=== PATIENT | male | born 1980 ===

== ENCOUNTER 2017-04-23 15:58 | Inpatient (IN) | payer MEDICAID ==
[2017-04-23 17:45] VITALS: BP 242/136; PULSE 93; RESP 17; TEMP 98.5; O2SAT 100
[2017-04-23 18:00] VITALS: PULSE 92
--- NOTE | 2017-04-23 18:53 | HHI.HP ---
HPI Service Critical Care Medicine Primary Care Physician Unknown Admission Diagnosis Diagnosis: (1) Peritonitis Diagnosis: Principal (2) HTN (hypertension) Diagnosis: Secondary (3) HIV (human immunodeficiency virus infection) Diagnosis: Secondary (4) ESRD (end stage renal disease) on dialysis Diagnosis: Secondary (5) Peritonitis associated with peritoneal dialysis Diagnosis: Principal Travel History International Travel<30 Days: No Contact w/Intl Traveler <30 Da: No Traveled to Known Affected Are: No History of Present Illness 36 yo -[place] male with past medical history of ESRD on PD since 2009 ( under the care of Ajay Mckenzie in [place]), HIV diagnosed in 2009 on HAART with reportedly undetectable viral load 6 months ago, HTN, chronic constipation who presented to [facility] this morning with concerns for peritonitis. He states that on 04/21/17 he developed abdominal discomfort which he recognized as being similar to prior episodes of peritonitis. He had chills. He did not check his temperature. On 04/21 he noted that his peritoneal fluid appeared cloudy. He has had very little appetite and very little to eat since 04/20. He was nauseous and vomited once today, nonbloody nonbilious. Last bowel movement was 04/20. He has had 4 prior episodes of peritonitis, the most recent was 4 years ago. Catheter has been removed and replaced on one occasion in 2013. At the outside hospital he was afebrile with heart rate in the 80s and hypertensive with systolic in the 180s. Labs were drawn at 9:30 AM on 04/23 white blood cell count was 6.5, hemoglobin 11, platelets 209. Sodium was 138, potassium 6, chloride 94, bicarb 23, BUN 84 , creatinine 21, glucose 105, calcium 8.7, LFTs normal, albumin 3.9. Coags were all within normal limits. He received D50, insulin 5 units, Kayexalate 45 g p.o., sodium bicarb 150 mEq at outside hospital. Blood cultures and peritoneal cultures were sent. He received Zosyn 3.375 g IV and vancomycin 500 mg IV. He also received Zofran and a total of 2.5 mg of Dilaudid and 4 mg of morphine. Reportedly he had a repeat potassium that was 5.0. CT abdomen and pelvis at outside hospital with ports focally dilated air loops of small bowel which may represent ileus. SBO cannot be excluded. Thickening of the colonic wall through the majority of its course which may be reactive versus infectious/ inflammatory. Bilateral pleural effusions. 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 Review of Systems ROS Limitations: Clinical Condition Constitutional: COMPLAINS OF: Chills, DENIES: Fever Eyes: DENIES: Eye pain Ears, nose, mouth, throat: DENIES: Throat pain, Odynophagia Respiratory: DENIES: Cough Cardiovascular: DENIES: Chest pain, Syncope, Dyspnea on Exertion Gastrointestinal: COMPLAINS OF: Abdominal pain, Bloody stools (last was 2 weeks ago ), Nausea, Vomiting, Anorexia Musculoskeletal: DENIES: Muscle aches Integumentary: DENIES: Rash Hematologic/lymphatic: DENIES: Bruising Neurologic: DENIES: Headache Psychiatric: COMPLAINS OF: Anxiety, DENIES: Confusion Past Family Social History Allergies: Coded Allergies: No Known Allergies (Unverified , 04/23/17) Past Medical History 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 He states he is anuric. Has had prior renal biopsy. He states he is unclear etiology of renal failure. HIV diagnosed in 2009 he has been under the care of Jose Armando Daly in [place]. He last saw him 6 months ago and reportedly had an undetectable viral load. He recently relocated to [place] and is looking for another ID physician HTN Anxiety He has had 4 prior episodes of peritonitis. Peritoneal catheter was removed and then replaced a month later in 2013. Gastritis per prior EGD 1 year ago Chronic constipation Past Surgical History Renal biopsy in 2009 Tenckhoff catheter placement 2009 PD catheter removal PD catheter replacement in 2013 Inguinal hernia repair EGD and colonoscopy in early 2016 Reported Medications Triumeq tablet 1 tab po daily Xanax 2.5 mg p.o. 3 times daily Calcitriol 0.5 mcg p.o. 3 times daily Carvedilol 25 mg p.o. twice daily Sensipar 60 mg p.o. daily Clonidine 0.2 mg p.o. 3 times daily Lisinopril 20 g p.o. twice daily Nifedipine ER 60 mg p.o. twice daily Hydralazine 50 mg p.o. 3 times daily Family History No family history of renal disease other than a cousin on his mother's side No family history of coronary artery disease Father's medical history is unknown His mother is healthy with no medical problems Social History Lifetime non-smoker Drinks alcohol very rarely on holidays He is smoked marijuana previously but none recently Denies IV drug use Previously lived in [place]. Just relocated to [place] a few months ago. His mother lives in [place]. Physical Exam Vital Signs Vital Signs Date Time Temp Pulse Resp B/P (MAP) Pulse Ox O2 Delivery O2 Flow Rate FiO2 04/23/17 18:00 92 04/23/17 17:45 98.5 93 17 242/136 (171) 100 Physical Exam GENERAL: Well-nourished, well-developed male patient who is sitting up in bed, alert and interactive, nontoxic-appearing SKIN: Warm and dry. No rash. Multiple tattoos on neck and chest HEAD: Atraumatic. Normocephalic. EYES: Pupils equal and round, 2 mm and reactive.. No scleral icterus. No injection or drainage. ENT: No nasal bleeding or discharge. Mucous membranes pink and moist. No pharyngeal erythema. NECK: Trachea midline. No JVD. CARDIOVASCULAR: Regular rate and rhythm, sinus rhythm on monitor with rate in the 80s. No murmurs rubs or gallops appreciated. RESPIRATORY: Breathing comfortably on room air with no accessory muscle use. Clear to auscultation. Breath sounds equal bilaterally. GASTROINTESTINAL: Abdomen soft, peritoneal fluid wave present, tender to palpation with voluntary guarding, no rebound. Bowel sounds hypoactive. Dialysis catheter in place with serous crusting around catheter, no purulent drainage. MUSCULOSKELETAL: Extremities without clubbing, cyanosis, or edema. No obvious deformities. NEUROLOGICAL: Awake and alert. No obvious cranial nerve deficits. Motor grossly within normal limits. Normal speech. Oriented x4. Caprini VTE Risk Assessment Caprini VTE Risk Assessment: Mod/High Risk (score >= 2) Caprini Risk Assessment Model Point Value = 1 Point Value = 2 Point Value = 3 Point Value = 5 Age 41-60 Minor surgery BMI > 25 kg/m2 Swollen legs Varicose veins or History of unexplained or recurrent spontaneous Oral contraceptives or hormone replacement Sepsis (< 1 month) Serious lung disease, including pneumonia (< 1 month) Abnormal pulmonary function Acute myocardial infarction Congestive heart failure (< 1 month) History of inflammatory bowel disease Medical patient at bed rest Age 61-74 Arthroscopic surgery Major open surgery (> 45 min) Laparoscopic surgery (> 45 min) Malignancy Confined to bed (> 72 hours) Immobilizing plaster cast Central venous access Age >= 75 History of VTE Family history of VTE Factor V Leiden Prothrombin [id number] Lupus anticoagulant Anticardiolipin antibodies Elevated serum homocysteine Heparin-induced thrombocytopenia Other congenital or acquired thrombophilia Stroke (< 1 month) Elective arthroplasty Hip, pelvis, or leg fracture Acute spinal cord injury (< 1 month) Prophylaxis Regimen Total Risk Factor Score Risk Level Prophylaxis Regimen 0-1 Low Early ambulation 2 Moderate Order ONE of the following: *Sequential Compression Device (SCD) *Heparin 5000 units SQ BID 3-4 Higher Order ONE of the following medications: *Heparin 5000 units SQ TID *Enoxaparin/Lovenox 40 mg SQ daily (WT < 150 kg, CrCl > 30 mL/min) *Enoxaparin/Lovenox 30 mg SQ daily (WT < 150 kg, CrCl > 10-29 mL/min) *Enoxaparin/Lovenox 30 mg SQ BID (WT < 150 kg, CrCl > 30 mL/min) AND/OR *Sequential Compression Device (SCD) 5 or more Highest Order ONE of the following medications: *Heparin 5000 units SQ TID (Preferred with Epidurals) *Enoxaparin/Lovenox 40 mg SQ daily (WT < 150 kg, CrCl > 30 mL/min) *Enoxaparin/Lovenox 30 mg SQ daily (WT < 150 kg, CrCl > 10-29 mL/min) *Enoxaparin/Lovenox 30 mg SQ BID (WT < 150 kg, CrCl > 30 mL/min) AND *Sequential Compression Device (SCD) Assessment and Plan Problem List: (1) HTN (hypertension) ICD Code: I10 - Essential (primary) hypertension Status: Chronic (2) Peritonitis associated with peritoneal dialysis ICD Code: T85.71XA - Infection and inflammatory reaction due to peritoneal dialysis catheter, initial encounter Status: Acute (3) HIV (human immunodeficiency virus infection) ICD Code: B20 - Human immunodeficiency virus [HIV] disease Status: Chronic (4) ESRD (end stage renal disease) on dialysis ICD Code: N18.6 - End stage renal disease; Z99.2 - Dependence on renal dialysis Status: Chronic (5) Peritonitis ICD Code: K65.9 - Peritonitis, unspecified Status: Acute Assessment and Plan NEURO: Anxiety Continue home Xanax RESP: On RA. CV: Hypertension EKG 04/1310: 14 normal sinus rhythm at a rate of 89 there were peak T waves. QRS is normal. Continue home medicines: Coreg 25 mg p.o. twice daily, clonidine 0.2 mg p.o. 3 times daily, lisinopril 20 g p.o. twice daily, nifedipine ER 60 mg p.o. twice daily, hydralazine 50 mg p.o. 3 times daily GI: Peritonitis Ileus History of gastritis Intraperitoneal abx, discussed with Dr. Cuba, he will order. CT abdomen and pelvis at outside hospital with ports focally dilated air loops of small bowel which may represent ileus. SBO cannot be excluded. Thickening of the colonic wall through the majority of its course which may be reactive versus infectious/inflammatory. F/u KUB FEN/RENAL: ESRD On peritoneal dialysis Acute Hyperkalemia He received D50, insulin 5 units, Kayexalate 45 g p.o., sodium bicarb 150 mEq at outside hospital. Nephrology consult with PD per nephrology. ID: HIV Peritonitis with indwelling peritoneal dialysis catheter Reportedly undetectable viral load approximately 6 months ago. Blood and peritoneal fluid cultures sent at [place], will need to call tomorrow to followup. Will send repeat blood cx, peritoneal cell count/gram stain and culture. Intraperitoneal Abx being ordered per Dr. Cuba. Continued home regimen of Triumeq tablet 1 tab po daily; though uptodate recommends dose adjustment of individual drugs for ESRD. Will defer to ID. HEME: Monitor CBC. PT/PTT at outside hospital were within normal limits 04/23 ENDO: He was seen at outside hospital. Will follow up glucose. PROPH: SCDs for DVT prophylaxis. Heparin 5000 units subcu every 12 hours for DVT prophylaxis. Famotidine 20 mg p.o. twice daily for stress ulcer prophylaxis ACCESS: Peripheral IV providing adequate access at this time. Discussed with Dr. Kathy Cuba Level 3 H and Diane Arriaza MD Apr 23, 2017 18:53
[2017-04-23] MEDS ORDERED: MAGNESIUM HYDROXIDE SUSP 30 ML CUP PO PRN (19:15)
[2017-04-23] MEDS ORDERED: CHLORHEXIDINE GLUCONATE 2 % 1 PACK (2 CLOTHS) TOP PRN (19:15)
[2017-04-23] MEDS ORDERED: MISCELLANEOUS NURSING INFORMATION XX SCH (19:15)
[2017-04-23] MEDS ORDERED: RESP: ALBUTEROL 2.5 MG/3 ML NEB (PRN) INH (19:15)
[2017-04-23] MEDS ORDERED: SODIUM CHLORIDE 0.9% FLUSH 10 ML FLUSH IV FLUSH PRN ×2 (19:15→19:30)
[2017-04-23] MEDS ORDERED: BISACODYL 10 MG SUPP RECTAL PRN (19:15)
[2017-04-23] MEDS ORDERED: hydrALAZINE HCL 20 MG/ML VIAL IV PUSH PRN (19:15)
[2017-04-23] MEDS ORDERED: SENNOSIDES 8.6 MG TAB PO PRN (19:15)
[2017-04-23] MEDS ORDERED: HEPARIN SODIUM - IV 10,000 UNITS/10 ML VIAL XX PRN (19:30)
[2017-04-23] MEDS: VANCOMYCIN HCL 1000 MG VIAL IP SCH (19:30)
[2017-04-23] MEDS: FAMOTIDINE 20 MG TAB PO SCH (19:56)
[2017-04-23] MEDS: CARVEDILOL 12.5 MG TAB PO SCH (19:56)
[2017-04-23] MEDS: HEPARIN SODIUM - SQ 10,000 UNITS/ML VIAL SQ SCH (19:56)
[2017-04-23] MEDS: SODIUM CHLORIDE 0.9% FLUSH 10 ML FLUSH IV FLUSH SCH (19:56)
[2017-04-23] MEDS: DOCUSATE SODIUM 50 MG/SENNA 8.6 MG TAB PO SCH (19:56)
[2017-04-23] MEDS: LISINOPRIL 20 MG TAB PO SCH (19:57)
[2017-04-23 20:00] VITALS: BP_SYST 231; BP_DIAS 136; BP_DIAS 196; PULSE 92; RESP 15; TEMP 98.4; TEMP 98.7; O2SAT 100
[2017-04-23 20:01] LABS: BICARBONATE 25.5 MEQ/L (21.0-32.0); CALCIUM 8.4 MG/DL (8.5-10.1); MAGNESIUM 2.1 MG/DL (1.5-2.5)
--- NOTE | 2017-04-23 20:03 | PD.CONS ---
HPI Service Nephrology Consult Requested By Dr. Dyson Reason for Consult ESRD on peritoneal dialysis Primary Care Physician Unknown History of Present Illness Patient is a 36-year-old male with history of end-stage renal disease, hypertension, HIV disease who had been on peritoneal dialysis since 2009, he states that he had the peritonitis before, his last infection was 4 years ago, he was careful with this technique however due to low volume he was trying to manipulate the tubings and the bag end got exposed, he developed abdominal pain on Saturday and it was unbearable and he came to the local emergency center in [place] but there was no bed available at [facility], he got transferred the care at [place], he said that he had the last well with antibiotics and is abdominal pain he would like it to be draining. Review of Systems Constitutional: COMPLAINS OF: Fatigue Gastrointestinal: COMPLAINS OF: Abdominal pain, Nausea Neurologic: COMPLAINS OF: Abnormal gait Psychiatric: COMPLAINS OF: Anxiety Past Family Social History Allergies: Coded Allergies: No Known Allergies (Unverified , 04/23/17) Past Medical History End-stage renal disease, hypertension, HIV disease, anemia, secondary hyperparathyroidism, peritonitis Past Surgical History Peritoneal dialysis catheter inserted Hernia repair Active Ordered Medications Current Medications Medications (Trade) Dose Ordered Sig/Neftaly Route Start Time Stop Time Status Last Admin (NS Flush) 2 ml UNSCH PRN IV FLUSH 04/23/17 19:15 (NS Flush) 2 ml BID IV FLUSH 04/23/17 21:00 (Percocet 5-325 Mg) 1 tab Q4H PRN PO 04/23/17 19:15 (Pepcid) 20 mg Q12HR PO 04/23/17 21:00 (Zofran Inj) 4 mg Q6H PRN IV PUSH 04/23/17 19:15 (Albuterol Neb) 2.5 mg Q2HR NEB PRN INH 04/23/17 19:15 (Heparin Inj) 5,000 units Q12H SQ 04/23/17 19:30 Miscellaneous Information 1 Q361D XX 04/23/17 19:15 (Chlorhexidine 2% Cloth) 3 pack Taper DAILY@04 TOP 04/24/17 04:00 04/20/18 03:59 (Chlorhexidine 2% Cloth) 3 pack UNSCH PRN TOP 04/23/17 19:15 (Shaneka-Colace) 1 tab BID PO 04/23/17 21:00 (Milk Of Magnesia Liq) 30 ml Q12H PRN PO 04/23/17 19:15 (Senokot) 17.2 mg Q12H PRN PO 04/23/17 19:15 (Dulcolax Supp) 10 mg DAILY PRN RECTAL 04/23/17 19:15 (Lactulose Liq) 30 ml DAILY PRN PO 04/23/17 19:15 (Percocet 5-325 Mg) 2 tab Q4H PRN PO 04/23/17 19:15 (Xanax) 0.5 mg Q8H PRN PO 04/23/17 19:15 (Rocaltrol) 0.5 mcg TID PO 04/24/17 09:00 (Coreg) 25 mg Q12HR PO 04/23/17 21:00 (Sensipar) 60 mg DAILY PO 04/24/17 09:00 (Catapres) 0.2 mg Q8HR PO 04/23/17 22:00 (Prinivil) 20 mg Q12HR PO 04/23/17 21:00 (Apresoline) 50 mg Q8HR PO 04/23/17 22:00 (Trandate Inj) 10 mg Q4H PRN IV PUSH 04/23/17 19:30 (Apresoline Inj) 10 mg Q4H PRN IV PUSH 04/23/17 19:15 (Heparin Inj) 1,000 units WITH DIALYSIS PRN XX 04/23/17 19:30 (NS Flush) 10 ml UNSCH PRN IV FLUSH 04/23/17 19:30 (Vancomycin Inj) 1,000 mg Q7D IP 04/23/17 19:30 (Fortaz Inj) 1,000 mg DAILY IP 04/23/17 19:30 Family History Noncontributory Social History Denies smoking, uses alcohol rarely Physical Exam Vital Signs Vital Signs Date Time Temp Pulse Resp B/P (MAP) Pulse Ox O2 Delivery O2 Flow Rate FiO2 04/23/17 18:00 92 04/23/17 17:45 98.5 93 17 242/136 (171) 100 Physical Exam GENERAL: Well-nourished, well-developed patient. SKIN: Warm and dry. HEAD: Normocephalic. EYES: No scleral icterus. No injection or drainage. NECK: Supple, trachea midline. No JVD or lymphadenopathy. CARDIOVASCULAR: Regular rate and rhythm without murmurs, gallops, or rubs. RESPIRATORY: Breath sounds equal bilaterally. No accessory muscle use. GASTROINTESTINAL: Abdomen soft, tenderness present diffusely, peritoneal dialysis catheter in place EXTREMITIES: No cyanosis, or edema. NEUROLOGICAL: Awake, alert, and oriented x 3. Non-focal. Laboratory Laboratory Tests Test 04/23/17 19:13 Date/Time Source Procedure Growth Status 04/23/17 19:19 Blood Peripheral Aerobic Blood Culture Pending Received 04/23/17 19:19 Blood Peripheral Anaerobic Blood Culture Pending Received Imaging Laboratory Tests Test 04/23/17 19:13 Assessment and Plan Problem List: (1) ESRD (end stage renal disease) on dialysis ICD Codes: N18.6 - End stage renal disease; Z99.2 - Dependence on renal dialysis Plan: Peritoneal dialysis ordered and this will be carried out with antibiotics coverage in the last several vancomycin 1 g and ceftazidime 1 g Reculture Gram stain and culture and sensitivity (2) Hypertensive crisis ICD Codes: I16.9 - Hypertensive crisis, unspecified Plan: Hypertension and resume his outpatient medications in the ICU he may need IV coverage for when necessary (3) Peritonitis ICD Codes: K65.9 - Peritonitis, unspecified Plan: check c/s IP antibiotics Assessment and Plan ESRD: Discussed Condition With ESRD, peritonitis patient will be started on peritoneal dialysis and always has been given Discussed with Mario Boogie MD Apr 23, 2017 20:03
[2017-04-23] MEDS: oxyCODONE/ACETAMINOPHEN 5 MG/325 MG TAB PO PRN (20:05)
[2017-04-23 20:11] LABS: CREATININE 23.07 MG/DL (0.60-1.30)
[2017-04-23 20:30] LABS: AUTOMATED NEUTROPHIL # 4.6 TH/MM3 (1.8-7.7); BASOPHIL # 0.1 TH/MM3 (0-0.2); BASOPHIL % 0.9 % (0.0-2.0); EOSINOPHIL # 0.1 TH/MM3 (0-0.4); EOSINOPHIL % 1.7 % (0.0-4.0); HEMATOCRIT 33.9 % (39.0-51.0); HEMOGLOBIN 11.1 GM/DL (13.0-17.0); LYMPH % 12.5 % (9.0-44.0); LYMPHOCYTE # 0.8 TH/MM3 (1.0-4.8); MEAN CELL VOLUME 95.5 FL (80.0-100.0); MEAN CORPUSCULAR HEMOGLOBIN 31.2 PG (27.0-34.0); MEAN CORPUSCULAR HGB CONC 32.7 % (32.0-36.0); MEAN PLATELET VOLUME 10.8 FL (7.0-11.0); MONO % 12.8 % (0.0-8.0); MONOCYTE # 0.8 TH/MM3 (0-0.9); NEUT % 72.1 % (16.0-70.0); PLATELET COUNT 205 TH/MM3 (150-450); RED BLOOD COUNT 3.55 MIL/MM3 (4.50-5.90); RED CELL DISTRIBUTION WIDTH 16.1 % (11.6-17.2); WHITE BLOOD COUNT 6.4 TH/MM3 (4.0-11.0)
--- NOTE | 2017-04-23 20:45 | RADRPT ---
EXAM DATE/TIME: 04/23/2017 20:13 [facility] COMPARISON: No previous studies available for comparison. INDICATIONS : Ileus. MEDICAL HISTORY : None. SURGICAL HISTORY : None. ENCOUNTER: Initial ACUITY: 1 day PAIN SCORE: 8/10 LOCATION: Bilateral abdomen. FINDINGS: There is distended small bowel and decompressed colon compatible small bowel obstruction. No free air seen. CONCLUSION: Small bowel obstruction. Anup Mcnamara MD on April 23, 2017 at 20:42 Board Certified Radiologist. This report was verified electronically.
[2017-04-23 21:00] VITALS: BP 220/128; PULSE 95; RESP 18; TEMP 98.6; O2SAT 100
[2017-04-23] MEDS: cloNIDine HCL 0.2 MG TAB PO SCH (21:31)
[2017-04-23 22:00] VITALS: PULSE 93
[2017-04-23] MEDS: hydrALAZINE HCL 50 MG TAB PO SCH (22:00)
[2017-04-23] MEDS: NIFEdipine 60 MG SUSTAINED RELEASE TAB PO SCH (22:04)
[2017-04-23 22:22] LABS: PERITONEAL EOS 3 %; PERITONEAL HISTIOCYTES 2 %; PERITONEAL LYMPHS 71 %; PERITONEAL MESOTHELIAL 1 %; PERITONEAL MONOS 3 %; PERITONEAL POLYS(SEGS) 20 %; PERITONEAL RBC 20 /MM3 (0-0)
[2017-04-23] MEDS: ALPRAZolam 0.5 MG TAB PO PRN (22:51)
[2017-04-23] MEDS: ONDANSETRON HCL 4 MG/2 ML VIAL IV PUSH PRN (22:51)
[2017-04-24] VITALS (12 sets, daily range): BP systolic 141–222; BP diastolic 85–127; PULSE 85–105; RESP 13–27; TEMP 98–98.7; O2SAT 97–100
[2017-04-24] MEDS: CHLORHEXIDINE GLUCONATE 2 % 1 PACK (2 CLOTHS) TOP SCH (04:00)
[2017-04-24] MEDS: hydrALAZINE HCL 50 MG TAB PO SCH ×3 (05:08→21:50)
[2017-04-24] MEDS: cloNIDine HCL 0.2 MG TAB PO SCH ×3 (05:09→21:50)
[2017-04-24] MEDS: oxyCODONE/ACETAMINOPHEN 5 MG/325 MG TAB PO PRN ×5 (05:09→23:47)
[2017-04-24 06:05] LABS: AUTOMATED NEUTROPHIL # 3.5 TH/MM3 (1.8-7.7); BASOPHIL # 0.1 TH/MM3 (0-0.2); BASOPHIL % 1.5 % (0.0-2.0); EOSINOPHIL # 0.1 TH/MM3 (0-0.4); EOSINOPHIL % 2.4 % (0.0-4.0); HEMATOCRIT 32.6 % (39.0-51.0); HEMOGLOBIN 10.8 GM/DL (13.0-17.0); LYMPH % 16.3 % (9.0-44.0); LYMPHOCYTE # 0.9 TH/MM3 (1.0-4.8); MEAN CELL VOLUME 95.2 FL (80.0-100.0); MEAN CORPUSCULAR HEMOGLOBIN 31.5 PG (27.0-34.0); MEAN CORPUSCULAR HGB CONC 33.1 % (32.0-36.0); MEAN PLATELET VOLUME 10.3 FL (7.0-11.0); MONO % 17.4 % (0.0-8.0); NEUT % 62.4 % (16.0-70.0); PLATELET COUNT 215 TH/MM3 (150-450); RED BLOOD COUNT 3.42 MIL/MM3 (4.50-5.90); RED CELL DISTRIBUTION WIDTH 15.5 % (11.6-17.2); WHITE BLOOD COUNT 5.7 TH/MM3 (4.0-11.0)
[2017-04-24] MEDS: ALPRAZolam 0.5 MG TAB PO PRN ×3 (06:35→21:50)
[2017-04-24 07:04] LABS: BICARBONATE 24.6 MEQ/L (21.0-32.0); CALCIUM 8.8 MG/DL (8.5-10.1)
[2017-04-24 07:10] LABS: CREATININE 20.72 MG/DL (0.60-1.30)
[2017-04-24] MEDS: HEPARIN SODIUM - SQ 10,000 UNITS/ML VIAL SQ SCH ×2 (07:30→17:59)
[2017-04-24] MEDS: ABACAVIR SULFATE 300 MG TAB PO SCH (08:53)
[2017-04-24] MEDS: CARVEDILOL 12.5 MG TAB PO SCH ×2 (08:55→20:49)
[2017-04-24] MEDS: LISINOPRIL 20 MG TAB PO SCH ×2 (08:55→20:49)
[2017-04-24] MEDS: FAMOTIDINE 20 MG TAB PO SCH ×2 (08:55→20:49)
[2017-04-24] MEDS: DOLUTEGRAVIR SODIUM 50 MG TAB PO SCH (08:55)
[2017-04-24] MEDS: CALCITRIOL 0.25 MCG CAP PO SCH ×3 (08:56→17:59)
[2017-04-24] MEDS: DOCUSATE SODIUM 50 MG/SENNA 8.6 MG TAB PO SCH ×2 (08:56→20:49)
[2017-04-24] MEDS: CINACALCET HYDROCHLORIDE 30 MG TAB PO SCH (08:56)
[2017-04-24] MEDS: NIFEdipine 60 MG SUSTAINED RELEASE TAB PO SCH ×2 (08:57→20:49)
[2017-04-24] MEDS: SODIUM CHLORIDE 0.9% FLUSH 10 ML FLUSH IV FLUSH SCH ×2 (08:58→20:49)
--- NOTE | 2017-04-24 09:39 | PD.ID.CON ---
History of Present Illness Service ID Consult Requested By Reason for Consult Evaluation and management of peritoneal dialysis catheter related peritonitis. Primary Care Physician Unknown Diagnoses: History of Present Illness Mr. Christian is a 36-year-old male with past medical history significant for end-stage renal disease on peritoneal dialysis since 2009. 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 Ajay Mckenzie in [place]. Patient reports having a renal biopsy and sure if this is HIV related end-stage renal disease or not. Patient reports that he has had at least one prior peritoneal dialysis catheter related peritonitis episode in the past needing removal of the PD catheter. Patient's past medical history is also significant for HIV diagnosed in 2009. Patient is not aware of his CD4 count but reports an undetectable viral load 6 months ago. In addition to this he also reports chronic constipation. Patient follows with an infectious disease doctor in [place] but has recently moved to [place] and is in need of a infectious disease doctor in that area. Patient denies any prior opportunistic infections such as PCP, fungal etc. With this background patient presented to the hospital in [facility] with complaints of abdominal discomfort which she reported appeared to be similar to prior episodes of peritonitis. He also reported chills but denied any fevers. He reports subjective fevers. On April 21 he reports that her paternal dialysis session he noted the fluid was cloudy. He reports decreased appetite since April 20. Reports nausea and vomiting at least once a day itches nonbloody and nonbilious. His last bowel movement was April 20. Review of Dr. Dyson notes reveals patient has had at least 4 prior episodes of peritonitis the most recent one was 4 years prior to this admission. While at [facility] patient was found to be afebrile with heart rate in the 80s and hypertensive with systolic blood pressure in the 180s. Labs drawn at that hospital indicated WBC of 6.5, platelets 205, creatinine 21. Patient was noted to have hyperkalemia with a potassium of 6. He received D50 , insulin 5 units in [place]ex[place]ate at the outside hospital. Blood cultures and peritoneal fluid cultures were collected on April 23, 2017 and when I called microbiology the reported that these cultures were no growth to date. His CT abdomen pelvis done at [facility] reportedly showed thickening of the colonic wall associated with dilated air loops of small bowel. Bilateral pleural effusions as well as fluid in the abdomen. Again the disc that arrived to the patient was difficult to open and side haven't been able to review these images personally. I did review medical records from [facility] and called microbiology department and blood cultures as well as pericardial fluid cultures are no growth today. Infectious disease is consulted for evaluation and management of peritoneal dialysis catheter related peritonitis. Review of Systems Constitutional: DENIES: Diaphoretic episodes, Fatigue, Fever, Weight gain, Weight loss, Chills, Dizziness, Change in appetite, Night Sweats Endocrine: DENIES: Heat/cold intolerance, Polydipsia, Polyuria, Polyphagia Eyes: DENIES: Blurred vision, Diplopia, Eye inflammation, Eye pain, Vision loss , Photosensitivity, Double Vision Ears, nose, mouth, throat: DENIES: Tinnitus, Hearing loss, Vertigo, Nasal discharge, Oral lesions, Throat pain, Hoarseness, Ear Pain, Running Nose, Epistaxis, Sinus Pain, Toothache, Odynophagia Respiratory: DENIES: Apneas, Cough, Snoring, Wheezing, Hemoptysis, Sputum production, Shortness of breath Cardiovascular: DENIES: Chest pain, Palpitations, Syncope, Dyspnea on Exertion , PND, Lower Extremity Edema, Orthopnea, Claudication Gastrointestinal: COMPLAINS OF: Abdominal pain, DENIES: Black stools, Bloody stools, Constipation, Diarrhea, Nausea, Vomiting, Difficulty Swallowing, Anorexia Genitourinary: DENIES: Sexual dysfunction, Urinary frequency, Urinary incontinence, Urgency, Hematuria, Dysuria, Nocturia, Penile Discharge, Testicular Pain, Testicular Swelling Musculoskeletal: DENIES: Joint pain, Muscle aches, Stiffness, Joint Swelling, Back pain, Neck pain Integumentary: DENIES: Abnormal pigmentation, Nail changes, Pruritus, Rash Hematologic/lymphatic: DENIES: Bruising, Lymphadenopathy Immunologic/allergic: DENIES: Eczema, Urticaria Neurologic: DENIES: Abnormal gait, Headache, Localized weakness, Paresthesias, Seizures, Speech Problems, Tremor, Poor Balance Psychiatric: DENIES: Anxiety, Confusion, Mood changes, Depression, Hallucinations, Agitation, Suicidal Ideation, Homicidal Ideation, Delusions Past Family Social History Allergies: Coded Allergies: No Known Allergies (Unverified , 04/23/17) Past Medical History 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 He states he is anuric. Has had prior renal biopsy. He states he is unclear etiology of renal failure. HIV diagnosed in 2009 he has been under the care of Jose Armando Daly in [place]. He last saw him 6 months ago and reportedly had an undetectable viral load. He recently relocated to [place] and is looking for another ID physician HTN Anxiety He has had 4 prior episodes of peritonitis. Peritoneal catheter was removed and then replaced a month later in 2013. Gastritis per prior EGD 1 year ago Chronic constipation Past Surgical History Renal biopsy in 2009 Tenckhoff catheter placement 2009 PD catheter removal PD catheter replacement in 2013 Inguinal hernia repair EGD and colonoscopy in early 2016 Reported Medications Triumeq tablet 1 tab po daily Xanax 2.5 mg p.o. 3 times daily Calcitriol 0.5 mcg p.o. 3 times daily Carvedilol 25 mg p.o. twice daily Sensipar 60 mg p.o. daily Clonidine 0.2 mg p.o. 3 times daily Lisinopril 20 g p.o. twice daily Nifedipine ER 60 mg p.o. twice daily Hydralazine 50 mg p.o. 3 times daily Active Ordered Medications Current Medications Medications (Trade) Dose Ordered Sig/Neftaly Route Start Time Stop Time Status Last Admin (NS Flush) 2 ml UNSCH PRN IV FLUSH 04/23/17 19:15 (NS Flush) 2 ml BID IV FLUSH 04/23/17 21:00 04/24/17 08:58 (Percocet 5-325 Mg) 1 tab Q4H PRN PO 04/23/17 19:15 04/24/17 10:07 (Pepcid) 20 mg Q12HR PO 04/23/17 21:00 04/24/17 08:55 (Zofran Inj) 4 mg Q6H PRN IV PUSH 04/23/17 19:15 04/23/17 22:51 (Albuterol Neb) 2.5 mg Q2HR NEB PRN INH 04/23/17 19:15 (Heparin Inj) 5,000 units Q12H SQ 04/23/17 19:30 04/23/17 19:56 Miscellaneous Information 1 Q361D XX 04/23/17 19:15 (Chlorhexidine 2% Cloth) 3 pack Taper DAILY@04 TOP 04/24/17 04:00 04/20/18 03:59 04/24/17 04:00 (Chlorhexidine 2% Cloth) 3 pack UNSCH PRN TOP 04/23/17 19:15 (Shaneka-Colace) 1 tab BID PO 04/23/17 21:00 04/24/17 08:56 (Milk Of Magnesia Liq) 30 ml Q12H PRN PO 04/23/17 19:15 (Senokot) 17.2 mg Q12H PRN PO 04/23/17 19:15 (Dulcolax Supp) 10 mg DAILY PRN RECTAL 04/23/17 19:15 (Lactulose Liq) 30 ml DAILY PRN PO 04/23/17 19:15 (Percocet 5-325 Mg) 2 tab Q4H PRN PO 04/23/17 19:15 04/24/17 05:09 (Xanax) 0.5 mg Q8H PRN PO 04/23/17 19:15 04/24/17 06:35 (Rocaltrol) 0.5 mcg TID PO 04/24/17 09:00 04/24/17 08:56 (Coreg) 25 mg Q12HR PO 04/23/17 21:00 04/24/17 08:55 (Sensipar) 60 mg DAILY PO 04/24/17 09:00 04/24/17 08:56 (Catapres) 0.2 mg Q8HR PO 04/23/17 22:00 04/24/17 05:09 (Prinivil) 20 mg Q12HR PO 04/23/17 21:00 04/24/17 08:55 (Apresoline) 50 mg Q8HR PO 04/23/17 22:00 04/24/17 05:08 (Trandate Inj) 10 mg Q4H PRN IV PUSH 04/23/17 19:30 04/24/17 10:49 (Apresoline Inj) 10 mg Q4H PRN IV PUSH 04/23/17 19:15 04/23/17 20:06 (Heparin Inj) 1,000 units WITH DIALYSIS PRN XX 04/23/17 19:30 (NS Flush) 10 ml UNSCH PRN IV FLUSH 04/23/17 19:30 (Vancomycin Inj) 1,000 mg Q7D IP 04/23/17 19:30 04/23/17 19:30 (Fortaz Inj) 1,000 mg DAILY IP 04/23/17 19:30 04/24/17 08:57 (Ziagen) 600 mg DAILY PO 04/24/17 09:00 04/24/17 08:53 (Epivir) 300 mg DAILY PO 04/24/17 09:00 04/24/17 08:54 (Procardia Xl) 60 mg Q12HR PO 04/23/17 22:00 04/24/17 08:57 Family History No family history of renal disease other than a cousin on his mother's side No family history of coronary artery disease Father's medical history is unknown His mother is healthy with no medical problems Social History Lifetime non-smoker Drinks alcohol very rarely on holidays He is smoked marijuana previously but none recently Denies IV drug use Previously lived in [place]. Just relocated to [place] a few months ago. His mother lives in [place]. Physical Exam Vital Signs Vital Signs Date Time Temp Pulse Resp B/P (MAP) Pulse Ox O2 Delivery O2 Flow Rate FiO2 04/24/17 06:00 92 04/24/17 04:00 89 04/24/17 04:00 98.3 89 27 163/105 (124) 97 04/24/17 02:00 92 04/24/17 00:00 92 04/24/17 00:00 98.6 95 18 141/85 (103) 99 04/23/17 22:00 93 04/23/17 21:00 98.6 95 18 220/128 (158) 100 04/23/17 20:00 98.7 92 15 231/136 (167) 100 04/23/17 20:00 98.4 92 15 231/196 (208) 100 04/23/17 20:00 92 04/23/17 18:00 92 04/23/17 17:45 98.5 93 17 242/136 (171) 100 Physical Exam GENERAL: This is a well-nourished, well-developed patient, in no apparent distress. SKIN: No rashes, ecchymoses or lesions. Cool and dry. HEAD: Atraumatic. Normocephalic. No temporal or scalp tenderness. EYES: Pupils equal round and reactive. Extraocular motions intact. No scleral icterus. No injection or drainage. ENT: Nose without bleeding, purulent drainage or septal hematoma. Throat without erythema, tonsillar hypertrophy or exudate. Uvula midline. Airway patent. NECK: Trachea midline. Supple, nontender, no meningeal signs. CARDIOVASCULAR: Systolic murmur noted. RESPIRATORY: Clear to auscultation. Breath sounds equal bilaterally. No wheezes , rales, or rhonchi. GASTROINTESTINAL: Abdomen soft, non-tender, nondistended. PD catheter site with no evidence of infection. MUSCULOSKELETAL: Extremities without clubbing, cyanosis, or edema. No joint tenderness, effusion, or edema noted. No calf tenderness. Negative Homans sign bilaterally. NEUROLOGICAL: Awake and alert. Nonfocal exam Psych cooperative IV line sites with no evidence of infection. Laboratory Laboratory Tests Test 04/23/17 17:51 04/23/17 19:13 04/23/17 20:34 04/24/17 05:29 Nasal Screen MRSA (PCR) MRSA DETECTED White Blood Count 6.4 5.7 Red Blood Count 3.55 3.42 Hemoglobin 11.1 10.8 Hematocrit 33.9 32.6 Mean Corpuscular Volume 95.5 95.2 Mean Corpuscular Hemoglobin 31.2 31.5 Mean Corpuscular Hemoglobin Concent 32.7 33.1 Red Cell Distribution Width 16.1 15.5 Platelet Count 205 215 Mean Platelet Volume 10.8 10.3 Neutrophils (%) (Auto) 72.1 62.4 Lymphocytes (%) (Auto) 12.5 16.3 Monocytes (%) (Auto) 12.8 17.4 Eosinophils (%) (Auto) 1.7 2.4 Basophils (%) (Auto) 0.9 1.5 Neutrophils # (Auto) 4.6 3.5 Lymphocytes # (Auto) 0.8 0.9 Monocytes # (Auto) 0.8 1.0 Eosinophils # (Auto) 0.1 0.1 Basophils # (Auto) 0.1 0.1 CBC Comment DIFF FINAL DIFF FINAL Differential Comment Blood Urea Nitrogen 84 75 Creatinine 23.07 20.72 Random Glucose 88 100 Calcium Level 8.4 8.8 Phosphorus Level 8.0 Magnesium Level 2.1 Sodium Level 137 137 Potassium Level 5.5 4.3 Chloride Level 98 97 Carbon Dioxide Level 25.5 24.6 Anion Gap 14 15 Estimat Glomerular Filtration Rate 2 3 Peritoneal Fluid WBC 41 Peritoneal Fluid RBC 20 Peritoneal Fluid Neutrophils 20 Peritoneal Fluid Lymphocytes 71 Peritoneal Fluid Monocytes 3 Peritoneal Fluid Eosinophils 3 Peritoneal Fluid Histiocytes 2 Peritoneal Fluid Mesothelial Cells 1 Date/Time Source Procedure Growth Status 04/23/17 19:19 Blood Peripheral Aerobic Blood Culture Pending Received 04/23/17 19:19 Blood Peripheral Anaerobic Blood Culture Pending Received 04/23/17 20:34 Fluid Peritoneal Fluid Acid Fast Stain Pending Received 04/23/17 20:34 Fluid Peritoneal Fluid Mycobacterial Culture Pending Received Result Diagram: 04/24/17 0529 04/24/17 0529 Imaging Last Impressions Abdomen X-Ray 04/23/17 0000 Signed Impressions: Service Date/Time: Sunday, April 23, 2017 20:13 - CONCLUSION: Small bowel obstruction. Anup Mcnamara MD Assessment and Plan Assessment and Plan Peritoneal dialysis catheter related peritonitis End-stage renal disease on PD Prior history of 4 episodes of peritonitis with 1 episode where PD catheter needed removal and change. Patient reports that he has received a letter for being listed on the renal transplant at [facility]. 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 Recommendations: Continue Continue HAART per his infectious disease doctor Continue ceftazidime intraperitoneally Continue vancomycin intraperitoneally Currently no evidence of any systemic infection as an blood withhold any systemic antibiotics at the present time Follow cultures from [facility] as well as [facility] Follow clinically Discussed with RN Discussed with patient Eusebia Darby MD Apr 24, 2017 09:39
[2017-04-24] MEDS: LABETALOL HCL 100 MG/20 ML VIAL IV PUSH PRN ×3 (10:49→22:03)
--- NOTE | 2017-04-24 14:17 | HHI.NPPN ---
Subjective History of Present Illness Hx of ESRD on PD peritonitis Objective Data Data 04/24/17 04/25/17 19:00 07:00 Output Total 373 ml Balance -373 ml Peritoneal Fluid 373 ml Vital Signs Date Time Temp Pulse Resp B/P (MAP) Pulse Ox O2 Delivery O2 Flow Rate FiO2 04/24/17 11:07 20 04/24/17 08:00 85 04/24/17 08:00 98.7 85 24 197/118 (144) 100 04/24/17 06:00 92 04/24/17 04:00 89 04/24/17 04:00 98.3 89 27 163/105 (124) 97 04/24/17 02:00 92 04/24/17 00:00 92 04/24/17 00:00 98.6 95 18 141/85 (103) 99 04/23/17 22:00 93 04/23/17 21:00 98.6 95 18 220/128 (158) 100 04/23/17 20:00 98.7 92 15 231/136 (167) 100 04/23/17 20:00 98.4 92 15 231/196 (208) 100 04/23/17 20:00 92 04/23/17 18:00 92 04/23/17 17:45 98.5 93 17 242/136 (171) 100 -: 04/24/17 0529 04/24/17 0529 Microbiology 04/23/17 Aerobic Blood Culture - Preliminary, Resulted NO GROWTH IN 1 DAY 04/23/17 Anaerobic Blood Culture - Preliminary, Resulted NO GROWTH IN 1 DAY 04/23/17 Aerobic Blood Culture - Preliminary, Resulted NO GROWTH IN 1 DAY 04/23/17 Anaerobic Blood Culture - Preliminary, Resulted NO GROWTH IN 1 DAY 04/23/17 Acid Fast Stain, Received Pending 04/23/17 Mycobacterial Culture, Received Pending 04/23/17 Fungal Smear - Final, Resulted NO FUNGAL ELEMENTS SEEN. 04/23/17 Fungal Culture, Resulted Pending 04/23/17 Gram Stain - Final, Resulted 04/23/17 Body Fluid Culture, Resulted Pending Physical Exam General Appearance: Well Developed, Well Nourished Neck Neck Exam: Neck Supple Pulmonary Resp Exam: Clear Bilaterally Cardiology CV Exam: Regular, Normal Sinus Rhythm Gastrointestinal/Abdomen GI Exam: Soft, Non-Tender, Bowel Sounds Present Extremeties Extremities Exam: No Edema Assessment/Plan Problem List: (1) ESRD (end stage renal disease) on dialysis ICD Codes: N18.6 - End stage renal disease; Z99.2 - Dependence on renal dialysis Plan: PD fluid culture pending cont with PD on Vanc/Ceftz Xray showed SBO CT ordered Ask surgery to see follow BMP (2) Hypertensive crisis ICD Codes: I16.9 - Hypertensive crisis, unspecified Plan: Labile add Catapres TTS # 3 patch Mario Cuba MD Apr 24, 2017 14:17
[2017-04-24] MEDS: ONDANSETRON HCL 4 MG/2 ML VIAL IV PUSH PRN (14:24)
[2017-04-24] MEDS ORDERED: DIATRIZOATE MEGLUM/DIATRIZOATE SOD 9 ML CUP PO ONE (15:00)
--- NOTE | 2017-04-24 15:30 | HHI.PR ---
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 He states that on 04/21/17 he developed abdominal discomfort which he recognized as being similar to prior episodes of peritonitis. He had chills. He did not check his temperature. On 04/21 he noted that his peritoneal fluid appeared cloudy. He has had very little appetite and very little to eat since 04/20. He was nauseous and vomited once today, nonbloody nonbilious. Last bowel movement was 04/20. He has had 4 prior episodes of peritonitis, the most recent was 4 years ago. Catheter has been removed and replaced on one occasion in 2013. At the outside hospital he was afebrile with heart rate in the 80s and hypertensive with systolic in the 180s. Labs were drawn at 9:30 AM on 04/23 white blood cell count was 6.5, hemoglobin 11, platelets 209. Sodium was 138, potassium 6, chloride 94, bicarb 23, BUN 84 , creatinine 21, glucose 105, calcium 8.7, LFTs normal, albumin 3.9. Coags were all within normal limits. He received D50, insulin 5 units, Kayexalate 45 g p.o., sodium bicarb 150 mEq at outside hospital. Blood cultures and peritoneal cultures were sent. He received Zosyn 3.375 g IV and vancomycin 500 mg IV. He also received Zofran and a total of 2.5 mg of Dilaudid and 4 mg of morphine. Reportedly he had a repeat potassium that was 5.0. CT abdomen and pelvis at outside hospital with ports focally dilated air loops of small bowel which may represent ileus. SBO cannot be excluded. Thickening of the colonic wall through the majority of its course which may be reactive versus infectious/ inflammatory. Bilateral pleural effusions. [facility] discussed with patient's cooker chip but there was there are no beds in the hospital so he has been transferred to [facility]. Hospitalist Notes: 04/24: as per Nephrology specialist to continue on Vancomycin and Ceftazidime. CT ordered. asked for Surgery evaluation. for Hypertensive Emergency recommended Catapres Patch. Infectious Disease specialist following, with Diagnosis of Peritoneal Dialysis catheter related peritonitis, prior history of four episodes of peritonitis with one episode of peritoneal catheter removal, HIV nephropathy, recommended to continue HAART therapy , continue Ceftazidime intraperitoneally, Vancomycin intraperitoneally, seen in his bedroom and discussed with nurse no new issues, awaiting for Surgical consult Objective Vital Signs Date Time Temp Pulse Resp B/P (MAP) Pulse Ox O2 Delivery O2 Flow Rate FiO2 04/24/17 11:07 20 04/24/17 08:00 85 04/24/17 08:00 98.7 85 24 197/118 (144) 100 04/24/17 06:00 92 04/24/17 04:00 89 04/24/17 04:00 98.3 89 27 163/105 (124) 97 04/24/17 02:00 92 04/24/17 00:00 92 04/24/17 00:00 98.6 95 18 141/85 (103) 99 04/23/17 22:00 93 04/23/17 21:00 98.6 95 18 220/128 (158) 100 04/23/17 20:00 98.7 92 15 231/136 (167) 100 04/23/17 20:00 98.4 92 15 231/196 (208) 100 04/23/17 20:00 92 04/23/17 18:00 92 04/23/17 17:45 98.5 93 17 242/136 (171) 100 I/O 04/23/17 04/23/17 04/23/17 04/24/17 04/24/17 04/24/17 07:00 15:00 23:00 07:00 15:00 23:00 Intake Total 0 ml 500 ml Output Total 0 ml 0 ml 373 ml Balance 0 ml 500 ml -373 ml Intake Oral 0 ml 500 ml Output Urine Total 0 ml 0 ml Stool Total 0 ml Peritoneal Fluid 373 ml # Bowel Movements 0 Result Diagram: 04/24/17 0529 04/24/17 0529 Imaging Last Impressions Abdomen X-Ray 04/23/17 0000 Signed Impressions: Service Date/Time: Sunday, April 23, 2017 20:13 - CONCLUSION: Small bowel obstruction. Anup Mcnamara MD Procedures None Other Results Laboratory Tests Test 04/23/17 17:51 04/23/17 19:13 04/23/17 20:34 04/24/17 05:29 Nasal Screen MRSA (PCR) MRSA DETECTED Blood Urea Nitrogen 84 MG/DL 75 MG/DL Creatinine 23.07 MG/DL 20.72 MG/DL Random Glucose 88 MG/DL 100 MG/DL Calcium Level 8.4 MG/DL 8.8 MG/DL Phosphorus Level 8.0 MG/DL Magnesium Level 2.1 MG/DL Sodium Level 137 MEQ/L 137 MEQ/L Potassium Level 5.5 MEQ/L 4.3 MEQ/L Chloride Level 98 MEQ/L 97 MEQ/L Carbon Dioxide Level 25.5 MEQ/L 24.6 MEQ/L Peritoneal Fluid WBC 41 /MM3 Peritoneal Fluid RBC 20 /MM3 Peritoneal Fluid Neutrophils 20 % Peritoneal Fluid Lymphocytes 71 % Peritoneal Fluid Monocytes 3 % Peritoneal Fluid Eosinophils 3 % Peritoneal Fluid Histiocytes 2 % Peritoneal Fluid Mesothelial Cells 1 % White Blood Count 5.7 TH/MM3 Red Blood Count 3.42 MIL/MM3 Hemoglobin 10.8 GM/DL Hematocrit 32.6 % Mean Corpuscular Volume 95.2 FL Mean Corpuscular Hemoglobin 31.5 PG Mean Corpuscular Hemoglobin Concent 33.1 % Red Cell Distribution Width 15.5 % Platelet Count 215 TH/MM3 Mean Platelet Volume 10.3 FL Neutrophils (%) (Auto) 62.4 % Lymphocytes (%) (Auto) 16.3 % Monocytes (%) (Auto) 17.4 % Eosinophils (%) (Auto) 2.4 % Basophils (%) (Auto) 1.5 % Neutrophils # (Auto) 3.5 TH/MM3 Lymphocytes # (Auto) 0.9 TH/MM3 Monocytes # (Auto) 1.0 TH/MM3 Eosinophils # (Auto) 0.1 TH/MM3 Basophils # (Auto) 0.1 TH/MM3 CBC Comment DIFF FINAL Differential Comment Anion Gap 15 MEQ/L Estimat Glomerular Filtration Rate 3 ML/MIN Objective Remarks GENERAL: Well-nourished, well-developed male patient who is sitting up in bed, alert and interactive, nontoxic-appearing SKIN: Warm and dry. No rash. Multiple tattoos on neck and chest HEAD: Atraumatic. Normocephalic. EYES: Pupils equal and round, 2 mm and reactive.. No scleral icterus. No injection or drainage. ENT: No nasal bleeding or discharge. Mucous membranes pink and moist. No pharyngeal erythema. NECK: Trachea midline. No JVD. CARDIOVASCULAR: Regular rate and rhythm, sinus rhythm on monitor with rate in the 80s. No murmurs rubs or gallops appreciated. RESPIRATORY: Breathing comfortably on room air with no accessory muscle use. Clear to auscultation. Breath sounds equal bilaterally. GASTROINTESTINAL: Abdomen soft, peritoneal fluid wave present, tender to palpation with voluntary guarding, no rebound. Bowel sounds hypoactive. Dialysis catheter in place with serous crusting around catheter, no purulent drainage. MUSCULOSKELETAL: Extremities without clubbing, cyanosis, or edema. No obvious deformities. NEUROLOGICAL: Awake and alert. No obvious cranial nerve deficits. Motor grossly within normal limits. Normal speech. Oriented x4. Medications and IVs Current Medications Medications (Trade) Dose Ordered Sig/Neftaly Route Start Time Stop Time Status Last Admin (NS Flush) 2 ml UNSCH PRN IV FLUSH 04/23/17 19:15 (NS Flush) 2 ml BID IV FLUSH 04/23/17 21:00 04/24/17 08:58 (Percocet 5-325 Mg) 1 tab Q4H PRN PO 04/23/17 19:15 04/24/17 10:07 (Pepcid) 20 mg Q12HR PO 04/23/17 21:00 04/24/17 08:55 (Zofran Inj) 4 mg Q6H PRN IV PUSH 04/23/17 19:15 04/24/17 14:24 (Albuterol Neb) 2.5 mg Q2HR NEB PRN INH 04/23/17 19:15 (Heparin Inj) 5,000 units Q12H SQ 04/23/17 19:30 04/23/17 19:56 Miscellaneous Information 1 Q361D XX 04/23/17 19:15 (Chlorhexidine 2% Cloth) 3 pack Taper DAILY@04 TOP 04/24/17 04:00 04/20/18 03:59 04/24/17 04:00 (Chlorhexidine 2% Cloth) 3 pack UNSCH PRN TOP 04/23/17 19:15 (Shaneka-Colace) 1 tab BID PO 04/23/17 21:00 04/24/17 08:56 (Milk Of Magnesia Liq) 30 ml Q12H PRN PO 04/23/17 19:15 (Senokot) 17.2 mg Q12H PRN PO 04/23/17 19:15 (Dulcolax Supp) 10 mg DAILY PRN RECTAL 04/23/17 19:15 (Lactulose Liq) 30 ml DAILY PRN PO 04/23/17 19:15 (Percocet 5-325 Mg) 2 tab Q4H PRN PO 04/23/17 19:15 04/24/17 14:16 (Xanax) 0.5 mg Q8H PRN PO 04/23/17 19:15 04/24/17 14:16 (Rocaltrol) 0.5 mcg TID PO 04/24/17 09:00 04/24/17 14:17 (Coreg) 25 mg Q12HR PO 04/23/17 21:00 04/24/17 08:55 (Sensipar) 60 mg DAILY PO 04/24/17 09:00 04/24/17 08:56 (Catapres) 0.2 mg Q8HR PO 04/23/17 22:00 04/24/17 14:16 (Prinivil) 20 mg Q12HR PO 04/23/17 21:00 04/24/17 08:55 (Apresoline) 50 mg Q8HR PO 04/23/17 22:00 04/24/17 14:16 (Trandate Inj) 10 mg Q4H PRN IV PUSH 04/23/17 19:30 04/24/17 14:49 (Apresoline Inj) 10 mg Q4H PRN IV PUSH 04/23/17 19:15 04/23/17 20:06 (Heparin Inj) 1,000 units WITH DIALYSIS PRN XX 04/23/17 19:30 (NS Flush) 10 ml UNSCH PRN IV FLUSH 04/23/17 19:30 (Vancomycin Inj) 1,000 mg Q7D IP 04/23/17 19:30 04/23/17 19:30 (Fortaz Inj) 1,000 mg DAILY IP 04/23/17 19:30 04/24/17 08:57 (Ziagen) 600 mg DAILY PO 04/24/17 09:00 04/24/17 08:53 (Epivir) 300 mg DAILY PO 04/24/17 09:00 04/24/17 08:54 (Procardia Xl) 60 mg Q12HR PO 04/23/17 22:00 04/24/17 08:57 (Catapres-Tts 0.3 Mg Patch.7d) 1 patch Q7D T-DERMAL 04/24/17 16:00 Miscellaneous Information 1 Q7D T-DERMAL 05/01/17 16:00 A/P Assessment and Plan 1. Peritonitis/Small bowel obstruction patient started on Intraperitoneal antibiotics, Nephrology specialist following Doctor Rosa Elena has thickening of the Colonic wall through the majority of its course which may be reactive versus infectious/inflammatory 04/24: as per Nephrology specialist to continue on Vancomycin and Ceftazidime intraperitoneally. CT ordered. asked for Surgery evaluation. for Hypertensive Emergency recommended Catapres Patch. Infectious Disease specialist following, with Diagnosis of Peritoneal Dialysis catheter related peritonitis, prior history of four episodes of peritonitis with one episode of peritoneal catheter removal, Awaiting for surgical consult. 2. HIV nephropathy, recommended to continue HAART therapy, 3. Hypertension to continue Coreg 25 mg BID, Clonidine 0.2 mg TID, Lisinopril 20 mg PO twice a day, Nifedipine ER 60 mg BID, Hydralazine 50 mg TID 4. ESRD on Peritoneal dialysis/Acute Hyperkalemia, He received D50, insulin 5 units, Kayexalate 45 g p.o., sodium bicarb 150 mEq at outside hospital. Nephrology following. 5. HIV/Peritonitis with indwelling peritoneal dialysis catheter undetectable viral load approximately six months ago, follow blood and peritoneal fluid cultures intraperitoneal antibiotics, continue Triumeq tablets 1 tabl by mouth daily. ID following. 6. Anxiety disorder on Xanax PROPH: SCDs for DVT prophylaxis. Heparin 5000 units subcu every 12 hours for DVT prophylaxis. Famotidine 20 mg p.o. twice daily for stress ulcer prophylaxis Discharge Planning Not yet cleared for discharge. Alexey Black MD Apr 24, 2017 15:30
[2017-04-24] MEDS ORDERED: cloNIDine HCL 0.3 MG/24 HR PATCH T-DERMAL SCH (16:00)
[2017-04-24] MEDS ORDERED: ENALAPRILAT 2.5 MG/2 ML VIAL IV PUSH PRN (17:00)
--- NOTE | 2017-04-24 18:12 | PD.CONS ---
cc: Monster Pierre MD HPI Service General Surgery Consult Requested By Dr. Cuba Reason for Consult Small bowel obstruction Primary Care Physician Unknown History of Present Illness This is a 36 year old male with a past medical history of ESRD on PD, HIV and dyslipidemia. He started experiencing abdominal pain with associated nausea and vomiting on April 20. He also noticed cloudy fluid coming from his PD catheter. He reports chills but unsure of his temperature. He went to [facility] and had blood cultures and cultures from the PD cath all which by reports are negative. The patient's last bowel movement was on Saturday which is unusual. He has had persistent nausea since arriving to [place]. He has little to no appetite. A KUB was obtained which shows small bowel obstruction. A General Surgery consultation has been requested. Review of Systems Constitutional: COMPLAINS OF: Fatigue, Chills, Change in appetite Endocrine: DENIES: Polydipsia, Polyuria, Polyphagia Eyes: DENIES: Diplopia, Eye inflammation Ears, nose, mouth, throat: DENIES: Hearing loss Respiratory: DENIES: Apneas, Cough Cardiovascular: DENIES: Chest pain Gastrointestinal: COMPLAINS OF: Abdominal pain, Constipation, Nausea, Vomiting Genitourinary: DENIES: Urgency Musculoskeletal: DENIES: Joint pain Integumentary: DENIES: Abnormal pigmentation Hematologic/lymphatic: DENIES: Bruising Immunologic/allergic: DENIES: Eczema Neurologic: DENIES: Headache, Localized weakness Psychiatric: DENIES: Mood changes, Depression, Hallucinations Past Family Social History Past Medical History ESRD on HD HIV Dyslipidemia Past Surgical History Renal biopsy Tenkoff catheter PD catheter removal Laparoscopic RIGHT inguinal hernia repair Reported Medications See EMR Allergies: Coded Allergies: No Known Allergies (Unverified , 04/23/17) Active Ordered Medications Current Medications Medications (Trade) Dose Ordered Sig/Neftaly Route Start Time Stop Time Status Last Admin (NS Flush) 2 ml UNSCH PRN IV FLUSH 04/23/17 19:15 (NS Flush) 2 ml BID IV FLUSH 04/23/17 21:00 04/24/17 08:58 (Percocet 5-325 Mg) 1 tab Q4H PRN PO 3/13/18 19:15 04/24/17 10:07 (Pepcid) 20 mg Q12HR PO 04/23/17 21:00 04/24/17 08:55 (Zofran Inj) 4 mg Q6H PRN IV PUSH 04/23/17 19:15 04/24/17 14:24 (Albuterol Neb) 2.5 mg Q2HR NEB PRN INH 04/23/17 19:15 (Heparin Inj) 5,000 units Q12H SQ 04/23/17 19:30 04/23/17 19:56 Miscellaneous Information 1 Q361D XX 04/23/17 19:15 (Chlorhexidine 2% Cloth) 3 pack Taper DAILY@04 TOP 04/24/17 04:00 04/20/18 03:59 04/24/17 04:00 (Chlorhexidine 2% Cloth) 3 pack UNSCH PRN TOP 04/23/17 19:15 (Shaneka-Colace) 1 tab BID PO 04/23/17 21:00 04/24/17 08:56 (Milk Of Magnesia Liq) 30 ml Q12H PRN PO 04/23/17 19:15 (Senokot) 17.2 mg Q12H PRN PO 04/23/17 19:15 (Dulcolax Supp) 10 mg DAILY PRN RECTAL 04/23/17 19:15 (Lactulose Liq) 30 ml DAILY PRN PO 04/23/17 19:15 (Percocet 5-325 Mg) 2 tab Q4H PRN PO 04/23/17 19:15 04/24/17 14:16 (Xanax) 0.5 mg Q8H PRN PO 04/23/17 19:15 04/24/17 14:16 (Rocaltrol) 0.5 mcg TID PO 04/24/17 09:00 04/24/17 14:17 (Coreg) 25 mg Q12HR PO 04/23/17 21:00 04/24/17 08:55 (Sensipar) 60 mg DAILY PO 04/24/17 09:00 04/24/17 08:56 (Catapres) 0.2 mg Q8HR PO 04/23/17 22:00 04/24/17 14:16 (Prinivil) 20 mg Q12HR PO 04/23/17 21:00 04/24/17 08:55 (Apresoline) 50 mg Q8HR PO 04/23/17 22:00 04/24/17 14:16 (Trandate Inj) 10 mg Q4H PRN IV PUSH 04/23/17 19:30 04/24/17 14:49 (Apresoline Inj) 10 mg Q4H PRN IV PUSH 04/23/17 19:15 04/23/17 20:06 (Heparin Inj) 1,000 units WITH DIALYSIS PRN XX 04/23/17 19:30 (NS Flush) 10 ml UNSCH PRN IV FLUSH 04/23/17 19:30 (Vancomycin Inj) 1,000 mg Q7D IP 04/23/17 19:30 04/23/17 19:30 (Fortaz Inj) 1,000 mg DAILY IP 04/23/17 19:30 04/24/17 08:57 (Ziagen) 600 mg DAILY PO 04/24/17 09:00 04/24/17 08:53 (Epivir) 300 mg DAILY PO 04/24/17 09:00 04/24/17 08:54 (Procardia Xl) 60 mg Q12HR PO 04/23/17 22:00 04/24/17 08:57 (Catapres-Tts 0.3 Mg Patch.7d) 1 patch Q7D T-DERMAL 04/24/17 16:00 04/24/17 16:00 Miscellaneous Information 1 Q7D T-DERMAL 05/01/17 16:00 (Vasotec Inj) 2.5 mg Q6H PRN IV PUSH 04/24/17 17:00 Family History Noncontributory Social History Denies tobacco use Denies ETOH use Denies illicit drug use Physical Exam Vital Signs Vital Signs Date Time Temp Pulse Resp B/P (MAP) Pulse Ox O2 Delivery O2 Flow Rate FiO2 04/24/17 15:16 18 04/24/17 14:00 105 04/24/17 12:00 85 04/24/17 12:00 98.6 85 26 210/124 (152) 100 04/24/17 11:07 20 04/24/17 10:00 85 04/24/17 08:00 85 04/24/17 08:00 98.7 85 24 197/118 (144) 100 04/24/17 06:00 92 04/24/17 04:00 89 04/24/17 04:00 98.3 89 27 163/105 (124) 97 04/24/17 02:00 92 04/24/17 00:00 92 04/24/17 00:00 98.6 95 18 141/85 (103) 99 04/23/17 22:00 93 04/23/17 21:00 98.6 95 18 220/128 (158) 100 04/23/17 20:00 98.7 92 15 231/136 (167) 100 04/23/17 20:00 98.4 92 15 231/196 (208) 100 04/23/17 20:00 92 Physical Exam GENERAL: Pleasant 36 year old male resting in bed in no acute distress. SKIN: Warm and dry. HEAD: Atraumatic. Normocephalic. EYES: Pupils equal and round. No scleral icterus. No injection or drainage. ENT: No nasal bleeding or discharge. Mucous membranes pink and moist. NECK: Trachea midline. CARDIOVASCULAR: Regular rate and rhythm. RESPIRATORY: No accessory muscle use. Clear to auscultation. Breath sounds equal bilaterally. GASTROINTESTINAL: Abdomen thin, flat abdomen; distended; tender throughout. PD catheter present without complications. MUSCULOSKELETAL: Extremities without clubbing, cyanosis, or edema. No obvious deformities. NEUROLOGICAL: Awake and alert. No obvious cranial nerve deficits. Motor grossly within normal limits. Five out of 5 muscle strength in the arms and legs. Normal speech. PSYCHIATRIC: Appropriate mood and affect; insight and judgment normal. Laboratory Laboratory Tests Test 04/23/17 19:13 04/23/17 20:34 04/24/17 05:29 White Blood Count 6.4 5.7 Red Blood Count 3.55 3.42 Hemoglobin 11.1 10.8 Hematocrit 33.9 32.6 Mean Corpuscular Volume 95.5 95.2 Mean Corpuscular Hemoglobin 31.2 31.5 Mean Corpuscular Hemoglobin Concent 32.7 33.1 Red Cell Distribution Width 16.1 15.5 Platelet Count 205 215 Mean Platelet Volume 10.8 10.3 Neutrophils (%) (Auto) 72.1 62.4 Lymphocytes (%) (Auto) 12.5 16.3 Monocytes (%) (Auto) 12.8 17.4 Eosinophils (%) (Auto) 1.7 2.4 Basophils (%) (Auto) 0.9 1.5 Neutrophils # (Auto) 4.6 3.5 Lymphocytes # (Auto) 0.8 0.9 Monocytes # (Auto) 0.8 1.0 Eosinophils # (Auto) 0.1 0.1 Basophils # (Auto) 0.1 0.1 CBC Comment DIFF FINAL DIFF FINAL Differential Comment Blood Urea Nitrogen 84 75 Creatinine 23.07 20.72 Random Glucose 88 100 Calcium Level 8.4 8.8 Phosphorus Level 8.0 Magnesium Level 2.1 Sodium Level 137 137 Potassium Level 5.5 4.3 Chloride Level 98 97 Carbon Dioxide Level 25.5 24.6 Anion Gap 14 15 Estimat Glomerular Filtration Rate 2 3 Peritoneal Fluid WBC 41 Peritoneal Fluid RBC 20 Peritoneal Fluid Neutrophils 20 Peritoneal Fluid Lymphocytes 71 Peritoneal Fluid Monocytes 3 Peritoneal Fluid Eosinophils 3 Peritoneal Fluid Histiocytes 2 Peritoneal Fluid Mesothelial Cells 1 Date/Time Source Procedure Growth Status 04/23/17 19:19 Blood Peripheral Aerobic Blood Culture - Preliminary NO GROWTH IN 1 DAY Resulted 04/23/17 19:19 Blood Peripheral Anaerobic Blood Culture - Preliminary NO GROWTH IN 1 DAY Resulted 04/23/17 20:34 Fluid Peritoneal Fluid Acid Fast Stain Pending Received 04/23/17 20:34 Fluid Peritoneal Fluid Mycobacterial Culture Pending Received Result Diagram: 04/30/17 0450 04/30/17 0450 Imaging Last 48 hours Impressions Abdomen X-Ray 04/23/17 0000 Signed Impressions: Service Date/Time: Sunday, April 23, 2017 20:13 - CONCLUSION: Small bowel obstruction. Anup Mcnamara MD Assessment and Plan Assessment and Plan 36 year old male with ESRD on PD; abdominal pain; SBO vs ileus -Will follow cultures obtained here -Clear liquids -Await results of CT -If PD catheter infected--- can plan to remove -Nephrology following -Thank you for this consult; We will continue to follow Discussed Condition With Dr. Ignacio Christian Attending Statement patient seen at bedside possible sbo vs ileus will await ct results npo ivf, pain control monitor pd cath Attestation The exam, history, and the medical decision-making described in the above note were completed with the assistance of the mid-level provider. I reviewed and agree with the findings presented. I attest that I had a [id number] encounter with the patient on the same day, and personally performed and documented my assessment and findings in the medical record. Mamta Quintana/First Linda CAPELLAN Apr 24, 2017 18:12 Monster Pierre MD May 02, 2017 15:30
--- NOTE | 2017-04-24 23:34 | EKG ---
Date Performed: 04/23/2017 Time Performed: 20:21:32 PTAGE: 36 years EKG: Sinus rhythm POSSIBLE LEFT ATRIAL ENLARGEMENT BORDERLINE ECG NO PREVIOUS TRACING DOCTOR: Bridger Mendez Interpretating Date/Time 04/24/2017 23:32:10
[2017-04-25] VITALS (13 sets, daily range): BP systolic 90–200; BP diastolic 55–124; PULSE 64–89; RESP 12–40; TEMP 97.7–98.6; O2SAT 98–100
[2017-04-25] MEDS: CHLORHEXIDINE GLUCONATE 2 % 1 PACK (2 CLOTHS) TOP SCH (04:00)
[2017-04-25 05:54] LABS: AUTOMATED NEUTROPHIL # 2.3 TH/MM3 (1.8-7.7); BASOPHIL # 0.1 TH/MM3 (0-0.2); BASOPHIL % 1.3 % (0.0-2.0); EOSINOPHIL % 1.2 % (0.0-4.0); HEMATOCRIT 25.2 % (39.0-51.0); HEMOGLOBIN 8.6 GM/DL (13.0-17.0); LYMPH % 25.9 % (9.0-44.0); MEAN CELL VOLUME 94.4 FL (80.0-100.0); MEAN CORPUSCULAR HEMOGLOBIN 32.1 PG (27.0-34.0); MEAN PLATELET VOLUME 10.3 FL (7.0-11.0); MONO % 15.1 % (0.0-8.0); MONOCYTE # 0.6 TH/MM3 (0-0.9); NEUT % 56.5 % (16.0-70.0); PLATELET COUNT 195 TH/MM3 (150-450); RED BLOOD COUNT 2.66 MIL/MM3 (4.50-5.90); RED CELL DISTRIBUTION WIDTH 15.8 % (11.6-17.2)
[2017-04-25] MEDS: cloNIDine HCL 0.2 MG TAB PO SCH ×3 (06:00→22:26)
[2017-04-25] MEDS: hydrALAZINE HCL 50 MG TAB PO SCH ×3 (06:00→22:26)
[2017-04-25] MEDS ORDERED: DIATRIZOATE MEGLUM/DIATRIZOATE SOD 9 ML CUP PO ONE (06:00)
[2017-04-25 06:22] LABS: BICARBONATE 26.5 MEQ/L (21.0-32.0); CALCIUM 8.9 MG/DL (8.5-10.1)
[2017-04-25 06:32] LABS: CREATININE 21.54 MG/DL (0.60-1.30)
[2017-04-25] MEDS: ALPRAZolam 0.5 MG TAB PO PRN ×3 (06:51→22:26)
[2017-04-25] MEDS: oxyCODONE/ACETAMINOPHEN 5 MG/325 MG TAB PO PRN ×5 (06:52→22:26)
[2017-04-25] MEDS: HEPARIN SODIUM - SQ 10,000 UNITS/ML VIAL SQ SCH ×2 (06:54→19:30)
[2017-04-25] MEDS: ABACAVIR SULFATE 300 MG TAB PO SCH (08:08)
[2017-04-25] MEDS: NIFEdipine 60 MG SUSTAINED RELEASE TAB PO SCH ×2 (08:09→19:56)
[2017-04-25] MEDS: CINACALCET HYDROCHLORIDE 30 MG TAB PO SCH (08:09)
[2017-04-25] MEDS: FAMOTIDINE 20 MG TAB PO SCH ×2 (08:09→19:56)
[2017-04-25] MEDS: DOCUSATE SODIUM 50 MG/SENNA 8.6 MG TAB PO SCH ×2 (08:09→19:56)
[2017-04-25] MEDS: CALCITRIOL 0.25 MCG CAP PO SCH ×3 (08:09→18:36)
[2017-04-25] MEDS: CARVEDILOL 12.5 MG TAB PO SCH ×2 (08:09→19:56)
[2017-04-25] MEDS: LISINOPRIL 20 MG TAB PO SCH ×2 (08:10→19:56)
[2017-04-25] MEDS: DOLUTEGRAVIR SODIUM 50 MG TAB PO SCH (09:08)
[2017-04-25] MEDS: SODIUM CHLORIDE 0.9% FLUSH 10 ML FLUSH IV FLUSH SCH ×2 (09:08→19:55)
[2017-04-25] MEDS: ONDANSETRON HCL 4 MG/2 ML VIAL IV PUSH PRN ×2 (10:37→17:30)
--- NOTE | 2017-04-25 10:45 | HHI.IDPN ---
Subjective Subjective Remarks Mr. Christian is a 36-year-old male with past medical history significant for end-stage renal disease on peritoneal dialysis since 2009. Patient's upstairs maid is Dr. Ajay Mckenzie in [place]. Patient reports having a renal biopsy and sure if this is HIV related end-stage renal disease or not. Patient reports that he has had at least one prior peritoneal dialysis catheter related peritonitis episode in the past needing removal of the PD catheter. Patient's past medical history is also significant for HIV diagnosed in 2009. Patient is not aware of his CD4 count but reports an undetectable viral load 6 months ago. In addition to this he also reports chronic constipation. Patient follows with an infectious disease doctor in [place] but has recently moved to [place] and is in need of a infectious disease doctor in that area. Patient denies any prior opportunistic infections such as PCP, fungal etc. With this background patient presented to the hospital in [facility] with complaints of abdominal discomfort which she reported appeared to be similar to prior episodes of peritonitis. He also reported chills but denied any fevers. He reports subjective fevers. On April 21 he reports that her paternal dialysis session he noted the fluid was cloudy. He reports decreased appetite since April 20. Reports nausea and vomiting at least once a day itches nonbloody and nonbilious. His last bowel movement was April 20. Review of Dr. Dyson notes reveals patient has had at least 4 prior episodes of peritonitis the most recent one was 4 years prior to this admission. While at [facility] patient was found to be afebrile with heart rate in the 80s and hypertensive with systolic blood pressure in the 180s. Labs drawn at that hospital indicated WBC of 6.5, platelets 205, creatinine 21. Patient was noted to have hyperkalemia with a potassium of 6. He received D50 , insulin 5 units in Kayexalate at the outside hospital. Blood cultures and peritoneal fluid cultures were collected on April 23, 2017 and when I called microbiology the reported that these cultures were no growth to date. His CT abdomen pelvis done at [facility] reportedly showed thickening of the colonic wall associated with dilated air loops of small bowel. Bilateral pleural effusions as well as fluid in the abdomen. Again the disc that arrived to the patient was difficult to open and side haven't been able to review these images personally. I did review medical records from [facility] and called microbiology department and blood cultures as well as pericardial fluid cultures are no growth today. Infectious disease is consulted for evaluation and management of peritoneal dialysis catheter related peritonitis. Overnight events reviewed No fevers No rash No diarrhea Complains of abdominal bloating but better than yday. Plan for CT Abd per Patient today. Underwent PD yday. Antibiotics Ceftaz IP Vanco IP Lines Line sites with no e.o infection Past Medical History Past Medical History ESRD upstairs maid is Ajay Mckenzie. He states he is anuric. Has had prior renal biopsy. He states he is unclear etiology of renal failure. HIV diagnosed in 2009 he has been under the care of Jose Armando Daly in [place]. He last saw him 6 months ago and reportedly had an undetectable viral load. He recently relocated to [place] and is looking for another ID physician HTN Anxiety He has had 4 prior episodes of peritonitis. Peritoneal catheter was removed and then replaced a month later in 2013. Gastritis per prior EGD 1 year ago Chronic constipation Past Surgical History Renal biopsy in 2009 Tenckhoff catheter placement 2009 PD catheter removal PD catheter replacement in 2013 Inguinal hernia repair EGD and colonoscopy in early 2016 Allergies: Coded Allergies: No Known Allergies (Unverified , 04/23/17) Objective . Vital Signs Date Time Temp Pulse Resp B/P (MAP) Pulse Ox O2 Delivery O2 Flow Rate FiO2 04/25/17 10:00 71 04/25/17 08:17 21 04/25/17 08:00 70 04/25/17 08:00 97.7 70 34 111/66 (81) 100 04/25/17 06:00 66 04/25/17 04:00 98.6 64 12 90/55 (67) 98 04/25/17 04:00 64 04/25/17 02:00 67 04/25/17 00:00 98.2 81 19 117/78 (91) 100 04/25/17 00:00 81 04/24/17 22:00 99 04/24/17 20:00 100 04/24/17 20:00 98.7 100 13 187/104 (131) 100 04/24/17 18:00 100 04/24/17 16:00 98.0 95 24 222/127 (158) 98 04/24/17 16:00 95 04/24/17 14:00 105 04/24/17 12:00 85 04/24/17 12:00 98.6 85 26 210/124 (152) 100 04/24/17 11:07 20 04/25/17 04/25/17 04/26/17 15:00 23:00 07:00 Output Total 738 ml Balance -738 ml Peritoneal Fluid 738 ml . Laboratory Tests Test 04/23/17 19:13 04/24/17 05:29 04/25/17 03:30 White Blood Count 6.4 TH/MM3 5.7 TH/MM3 4.0 TH/MM3 Red Blood Count 3.55 MIL/MM3 3.42 MIL/MM3 2.66 MIL/MM3 Hemoglobin 11.1 GM/DL 10.8 GM/DL 8.6 GM/DL Hematocrit 33.9 % 32.6 % 25.2 % Mean Corpuscular Volume 95.5 FL 95.2 FL 94.4 FL Mean Corpuscular Hemoglobin 31.2 PG 31.5 PG 32.1 PG Mean Corpuscular Hemoglobin Concent 32.7 % 33.1 % 34.0 % Red Cell Distribution Width 16.1 % 15.5 % 15.8 % Platelet Count 205 TH/MM3 215 TH/MM3 195 TH/MM3 Mean Platelet Volume 10.8 FL 10.3 FL 10.3 FL Neutrophils (%) (Auto) 72.1 % 62.4 % 56.5 % Lymphocytes (%) (Auto) 12.5 % 16.3 % 25.9 % Monocytes (%) (Auto) 12.8 % 17.4 % 15.1 % Eosinophils (%) (Auto) 1.7 % 2.4 % 1.2 % Basophils (%) (Auto) 0.9 % 1.5 % 1.3 % Neutrophils # (Auto) 4.6 TH/MM3 3.5 TH/MM3 2.3 TH/MM3 Lymphocytes # (Auto) 0.8 TH/MM3 0.9 TH/MM3 1.0 TH/MM3 Monocytes # (Auto) 0.8 TH/MM3 1.0 TH/MM3 0.6 TH/MM3 Eosinophils # (Auto) 0.1 TH/MM3 0.1 TH/MM3 0.0 TH/MM3 Basophils # (Auto) 0.1 TH/MM3 0.1 TH/MM3 0.1 TH/MM3 CBC Comment DIFF FINAL DIFF FINAL DIFF FINAL Differential Comment Laboratory Tests Test 04/23/17 19:13 04/24/17 05:29 04/25/17 03:30 Blood Urea Nitrogen 84 MG/DL 75 MG/DL 70 MG/DL Creatinine 23.07 MG/DL 20.72 MG/DL 21.54 MG/DL Random Glucose 88 MG/DL 100 MG/DL 95 MG/DL Calcium Level 8.4 MG/DL 8.8 MG/DL 8.9 MG/DL Phosphorus Level 8.0 MG/DL Magnesium Level 2.1 MG/DL Sodium Level 137 MEQ/L 137 MEQ/L 136 MEQ/L Potassium Level 5.5 MEQ/L 4.3 MEQ/L 4.4 MEQ/L Chloride Level 98 MEQ/L 97 MEQ/L 95 MEQ/L Carbon Dioxide Level 25.5 MEQ/L 24.6 MEQ/L 26.5 MEQ/L Anion Gap 14 MEQ/L 15 MEQ/L 15 MEQ/L Estimat Glomerular Filtration Rate 2 ML/MIN 3 ML/MIN 2 ML/MIN Microbiology Date/Time Source Procedure Growth Status 04/23/17 19:19 Blood Peripheral Aerobic Blood Culture - Preliminary NO GROWTH IN 1 DAY Resulted 04/23/17 19:19 Blood Peripheral Anaerobic Blood Culture - Preliminary NO GROWTH IN 1 DAY Resulted 04/23/17 19:13 Blood Peripheral Aerobic Blood Culture - Preliminary NO GROWTH IN 1 DAY Resulted 04/23/17 19:13 Blood Peripheral Anaerobic Blood Culture - Preliminary NO GROWTH IN 1 DAY Resulted 04/23/17 20:34 Fluid Peritoneal Fluid Acid Fast Stain Pending Received 04/23/17 20:34 Fluid Peritoneal Fluid Mycobacterial Culture Pending Received 04/23/17 20:34 Fluid Peritoneal Fluid Fungal Smear - Final NO FUNGAL ELEMENTS SEEN. Resulted 04/23/17 20:34 Fluid Peritoneal Fluid Fungal Culture Pending Resulted 04/23/17 20:34 Fluid Peritoneal Fluid Gram Stain - Final Resulted 04/23/17 20:34 Fluid Peritoneal Fluid Body Fluid Culture - Preliminary Resulted Imaging Last Impressions Abdomen X-Ray 04/23/17 0000 Signed Impressions: Service Date/Time: Sunday, April 23, 2017 20:13 - CONCLUSION: Small bowel obstruction. Anup Mcnamara MD Physical Exam GENERAL: This is a well-nourished, well-developed patient, in no apparent distress. SKIN: No rashes, ecchymoses or lesions. Cool and dry. HEAD: Atraumatic. Normocephalic. No temporal or scalp tenderness. EYES: Pupils equal round and reactive. Extraocular motions intact. No scleral icterus. No injection or drainage. ENT: Nose without bleeding, purulent drainage or septal hematoma. Throat without erythema, tonsillar hypertrophy or exudate. Uvula midline. Airway patent. NECK: Trachea midline. Supple, nontender, no meningeal signs. CARDIOVASCULAR: Systolic murmur noted. RESPIRATORY: Clear to auscultation. Breath sounds equal bilaterally. No wheezes , rales, or rhonchi. GASTROINTESTINAL: Abdomen soft, non-tender, nondistended. PD catheter site with no evidence of infection. MUSCULOSKELETAL: Extremities without clubbing, cyanosis, or edema. No joint tenderness, effusion, or edema noted. No calf tenderness. Negative Homans sign bilaterally. NEUROLOGICAL: Awake and alert. Nonfocal exam Psych cooperative IV line sites with no evidence of infection. Assessment & Plan Remarks Peritoneal dialysis catheter related peritonitis Small Bowel Obstruction. Surgery following. End-stage renal disease on PD Prior history of 4 episodes of peritonitis with 1 episode where PD catheter needed removal and change. Patient reports that he has received a letter for being listed on the renal transplant at [facility]. 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 Recommendations: Continue Continue HAART per his infectious disease doctor Continue ceftazidime intraperitoneally Continue vancomycin intraperitoneally Currently no evidence of any systemic infection as an blood withhold any systemic antibiotics at the present time Follow cultures from [facility] as well as [facility] Follow CT Abd/Pelvis Follow clinically Discussed with RN Discussed with patient I will be OOT from 04/26/2017 to 05/05/2017 other ID MDs covering for me. Eusebia Darby MD Apr 25, 2017 10:45
--- NOTE | 2017-04-25 11:13 | HHI.PR ---
Subjective Remarks information specialist Notes: 36 yo -[place] male with past medical history of ESRD on PD since 2009 ( under the care of Ajay Mckenzie in [place]), HIV diagnosed in 2009 on HAART with reportedly undetectable viral load 6 months ago, HTN, chronic constipation who presented to [facility] this morning with concerns for peritonitis. He states that on 04/21/17 he developed abdominal discomfort which he recognized as being similar to prior episodes of peritonitis. He had chills. He did not check his temperature. On 04/21 he noted that his peritoneal fluid appeared cloudy. He has had very little appetite and very little to eat since 04/20. He was nauseous and vomited once today, nonbloody nonbilious. Last bowel movement was 04/20. He has had 4 prior episodes of peritonitis, the most recent was 4 years ago. Catheter has been removed and replaced on one occasion in 2013. At the outside hospital he was afebrile with heart rate in the 80s and hypertensive with systolic in the 180s. Labs were drawn at 9:30 AM on 04/23 white blood cell count was 6.5, hemoglobin 11, platelets 209. Sodium was 138, potassium 6, chloride 94, bicarb 23, BUN 84 , creatinine 21, glucose 105, calcium 8.7, LFTs normal, albumin 3.9. Coags were all within normal limits. He received D50, insulin 5 units, Kayexalate 45 g p.o., sodium bicarb 150 mEq at outside hospital. Blood cultures and peritoneal cultures were sent. He received Zosyn 3.375 g IV and vancomycin 500 mg IV. He also received Zofran and a total of 2.5 mg of Dilaudid and 4 mg of morphine. Reportedly he had a repeat potassium that was 5.0. CT abdomen and pelvis at outside hospital with ports focally dilated air loops of small bowel which may represent ileus. SBO cannot be excluded. Thickening of the colonic wall through the majority of its course which may be reactive versus infectious/ inflammatory. Bilateral pleural effusions. 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 Hospitalist Notes: 04/24: as per Nephrology specialist to continue on Vancomycin and Ceftazidime. CT ordered. asked for Surgery evaluation. for Hypertensive Emergency recommended Catapres Patch. Infectious Disease specialist following, with Diagnosis of Peritoneal Dialysis catheter related peritonitis, prior history of four episodes of peritonitis with one episode of peritoneal catheter removal, HIV nephropathy, recommended to continue HAART therapy , continue Ceftazidime intraperitoneally, Vancomycin intraperitoneally, seen in his bedroom and discussed with nurse no new issues, awaiting for Surgical consult 04/25: Seen in his bedroom in the presence of his Mother, improving clinically, encourage ambulation. No nausea, vomit or diarrhea. Objective Vital Signs Date Time Temp Pulse Resp B/P (MAP) Pulse Ox O2 Delivery O2 Flow Rate FiO2 04/25/17 10:00 71 04/25/17 08:17 21 04/25/17 08:00 70 04/25/17 08:00 97.7 70 34 111/66 (81) 100 04/25/17 06:00 66 04/25/17 04:00 98.6 64 12 90/55 (67) 98 04/25/17 04:00 64 04/25/17 02:00 67 04/25/17 00:00 98.2 81 19 117/78 (91) 100 04/25/17 00:00 81 04/24/17 22:00 99 04/24/17 20:00 100 04/24/17 20:00 98.7 100 13 187/104 (131) 100 04/24/17 18:00 100 04/24/17 16:00 98.0 95 24 222/127 (158) 98 04/24/17 16:00 95 04/24/17 14:00 105 04/24/17 12:00 85 04/24/17 12:00 98.6 85 26 210/124 (152) 100 I/O 04/24/17 04/24/17 04/24/17 04/25/17 04/25/17 04/25/17 07:00 15:00 23:00 07:00 15:00 23:00 Intake Total 500 ml 600 ml 550 ml Output Total 0 ml 373 ml 0 ml 0 ml 738 ml Balance 500 ml -373 ml 600 ml 550 ml -738 ml Intake Oral 500 ml 600 ml 550 ml Output Urine Total 0 ml 0 ml 0 ml Stool Total 0 ml Peritoneal Fluid 373 ml 738 ml # Bowel Movements 0 0 Result Diagram: 04/25/17 0330 04/25/17 0330 Imaging Last Impressions Abdomen/Pelvis CT 04/24/17 0000 Signed Impressions: Service Date/Time: April 12:22 - CONCLUSION: 1. Large volume ascites. 2. Polycystic kidney disease. 3. Multiple dilated proximal small bowel loops, likely ileus. Dayton Johnson MD Abdomen X-Ray 04/23/17 0000 Signed Impressions: Service Date/Time: Sunday, April 23, 2017 20:13 - CONCLUSION: Small bowel obstruction. Anup Mcnamara MD Procedures None Other Results Laboratory Tests Test 04/23/17 17:51 04/23/17 19:13 04/23/17 20:34 04/25/17 03:30 Nasal Screen MRSA (PCR) MRSA DETECTED Blood Urea Nitrogen 84 MG/DL 70 MG/DL Creatinine 23.07 MG/DL 21.54 MG/DL Random Glucose 88 MG/DL 95 MG/DL Calcium Level 8.4 MG/DL 8.9 MG/DL Phosphorus Level 8.0 MG/DL Magnesium Level 2.1 MG/DL Sodium Level 137 MEQ/L 136 MEQ/L Potassium Level 5.5 MEQ/L 4.4 MEQ/L Chloride Level 98 MEQ/L 95 MEQ/L Carbon Dioxide Level 25.5 MEQ/L 26.5 MEQ/L Peritoneal Fluid WBC 41 /MM3 Peritoneal Fluid RBC 20 /MM3 Peritoneal Fluid Neutrophils 20 % Peritoneal Fluid Lymphocytes 71 % Peritoneal Fluid Monocytes 3 % Peritoneal Fluid Eosinophils 3 % Peritoneal Fluid Histiocytes 2 % Peritoneal Fluid Mesothelial Cells 1 % White Blood Count 4.0 TH/MM3 Red Blood Count 2.66 MIL/MM3 Hemoglobin 8.6 GM/DL Hematocrit 25.2 % Mean Corpuscular Volume 94.4 FL Mean Corpuscular Hemoglobin 32.1 PG Mean Corpuscular Hemoglobin Concent 34.0 % Red Cell Distribution Width 15.8 % Platelet Count 195 TH/MM3 Mean Platelet Volume 10.3 FL Neutrophils (%) (Auto) 56.5 % Lymphocytes (%) (Auto) 25.9 % Monocytes (%) (Auto) 15.1 % Eosinophils (%) (Auto) 1.2 % Basophils (%) (Auto) 1.3 % Neutrophils # (Auto) 2.3 TH/MM3 Lymphocytes # (Auto) 1.0 TH/MM3 Monocytes # (Auto) 0.6 TH/MM3 Eosinophils # (Auto) 0.0 TH/MM3 Basophils # (Auto) 0.1 TH/MM3 CBC Comment DIFF FINAL Differential Comment Anion Gap 15 MEQ/L Estimat Glomerular Filtration Rate 2 ML/MIN Objective Remarks GENERAL: Well-nourished, well-developed male patient who is sitting up in bed, alert and interactive, nontoxic-appearing SKIN: Warm and dry. No rash. Multiple tattoos on neck and chest HEAD: Atraumatic. Normocephalic. EYES: Pupils equal and round, 2 mm and reactive.. No scleral icterus. No injection or drainage. ENT: No nasal bleeding or discharge. Mucous membranes pink and moist. No pharyngeal erythema. NECK: Trachea midline. No JVD. CARDIOVASCULAR: Regular rate and rhythm, sinus rhythm on monitor with rate in the 80s. No murmurs rubs or gallops appreciated. RESPIRATORY: Breathing comfortably on room air with no accessory muscle use. Clear to auscultation. Breath sounds equal bilaterally. GASTROINTESTINAL: Abdomen soft, peritoneal fluid wave present, tender to palpation with voluntary guarding, no rebound. Bowel sounds hypoactive. Dialysis catheter in place with serous crusting around catheter, no purulent drainage. MUSCULOSKELETAL: Extremities without clubbing, cyanosis, or edema. No obvious deformities. NEUROLOGICAL: Awake and alert. No obvious cranial nerve deficits. Motor grossly within normal limits. Normal speech. Oriented x4. Medications and IVs Current Medications Medications (Trade) Dose Ordered Sig/Neftaly Route Start Time Stop Time Status Last Admin (NS Flush) 2 ml UNSCH PRN IV FLUSH 04/23/17 19:15 (NS Flush) 2 ml BID IV FLUSH 04/23/17 21:00 04/25/17 09:08 (Percocet 5-325 Mg) 1 tab Q4H PRN PO 04/23/17 19:15 04/24/17 10:07 (Pepcid) 20 mg Q12HR PO 04/23/17 21:00 04/25/17 08:09 (Zofran Inj) 4 mg Q6H PRN IV PUSH 04/23/17 19:15 04/25/17 10:37 (Albuterol Neb) 2.5 mg Q2HR NEB PRN INH 04/23/17 19:15 (Heparin Inj) 5,000 units Q12H SQ 04/23/17 19:30 04/23/17 19:56 Miscellaneous Information 1 Q361D XX 04/23/17 19:15 (Chlorhexidine 2% Cloth) 3 pack Taper DAILY@04 TOP 04/24/17 04:00 04/20/18 03:59 04/25/17 04:00 (Chlorhexidine 2% Cloth) 3 pack UNSCH PRN TOP 04/23/17 19:15 (Shaneka-Colace) 1 tab BID PO 04/23/17 21:00 04/25/17 08:09 (Milk Of Magnesia Liq) 30 ml Q12H PRN PO 04/23/17 19:15 (Senokot) 17.2 mg Q12H PRN PO 04/23/17 19:15 (Dulcolax Supp) 10 mg DAILY PRN RECTAL 04/23/17 19:15 (Lactulose Liq) 30 ml DAILY PRN PO 04/23/17 19:15 (Percocet 5-325 Mg) 2 tab Q4H PRN PO 04/23/17 19:15 04/25/17 15:02 (Xanax) 0.5 mg Q8H PRN PO 04/23/17 19:15 04/25/17 14:20 (Rocaltrol) 0.5 mcg TID PO 04/24/17 09:00 04/25/17 14:20 (Coreg) 25 mg Q12HR PO 04/23/17 21:00 04/25/17 08:09 (Sensipar) 60 mg DAILY PO 04/24/17 09:00 04/25/17 08:09 (Catapres) 0.2 mg Q8HR PO 04/23/17 22:00 04/25/17 14:20 (Prinivil) 20 mg Q12HR PO 04/23/17 21:00 04/25/17 08:10 (Apresoline) 50 mg Q8HR PO 04/23/17 22:00 04/25/17 14:20 (Trandate Inj) 10 mg Q4H PRN IV PUSH 04/23/17 19:30 04/24/17 22:03 (Apresoline Inj) 10 mg Q4H PRN IV PUSH 04/23/17 19:15 04/23/17 20:06 (Heparin Inj) 1,000 units WITH DIALYSIS PRN XX 04/23/17 19:30 (NS Flush) 10 ml UNSCH PRN IV FLUSH 04/23/17 19:30 (Vancomycin Inj) 1,000 mg Q7D IP 04/23/17 19:30 04/23/17 19:30 (Fortaz Inj) 1,000 mg DAILY IP 04/23/17 19:30 04/25/17 09:08 (Ziagen) 600 mg DAILY PO 04/24/17 09:00 04/25/17 08:08 (Epivir) 300 mg DAILY PO 04/24/17 09:00 04/25/17 08:09 (Procardia Xl) 60 mg Q12HR PO 04/23/17 22:00 04/25/17 08:09 (Catapres-Tts 0.3 Mg Patch.7d) 1 patch Q7D T-DERMAL 04/24/17 16:00 04/24/17 16:00 Miscellaneous Information 1 Q7D T-DERMAL 05/01/17 16:00 (Vasotec Inj) 2.5 mg Q6H PRN IV PUSH 04/24/17 17:00 04/24/17 19:08 A/P Assessment and Plan 1. Peritonitis/Small bowel obstruction patient started on Intraperitoneal antibiotics, Nephrology specialist following Doctor Rosa Elena has thickening of the Colonic wall through the majority of its course which may be reactive versus infectious/inflammatory 04/24: as per Nephrology specialist to continue on Vancomycin and Ceftazidime intraperitoneally. CT ordered. asked for Surgery evaluation. Infectious Disease specialist following, with Diagnosis of Peritoneal Dialysis catheter related peritonitis, prior history of four episodes of peritonitis with one episode of peritoneal catheter removal, Improving clinically. 2. Hypertensive Emergency on Catapres patch by Nephrology and Labetalol PRN, patient allergic to Hydralazine. 3. Hypertension to continue Coreg 25 mg BID, Clonidine 0.2 mg TID, Lisinopril 20 mg PO twice a day, Nifedipine ER 60 mg BID, Hydralazine 50 mg TID 4. ESRD on Peritoneal dialysis/Acute Hyperkalemia, He received D50, insulin 5 units, Kayexalate 45 g p.o., sodium bicarb 150 mEq at outside hospital. Nephrology following. 5. HIV/Peritonitis with indwelling peritoneal dialysis catheter undetectable viral load approximately six months ago, follow blood and peritoneal fluid cultures intraperitoneal antibiotics, continue Triumeq tablets 1 tabl by mouth daily. ID following. 6. Anxiety disorder on Xanax 7. 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 Heparin 5000 units subcu every 12 hours for DVT prophylaxis. Famotidine 20 mg p.o. twice daily for stress ulcer prophylaxis Discharge Planning Not yet cleared for discharge. Alexey Black MD Apr 25, 2017 11:13
--- NOTE | 2017-04-25 12:45 | RADRPT ---
EXAM DATE/TIME: 04/25/2017 12:22 [place] COMPARISON: No previous studies available for comparison. INDICATIONS : Mid abdominal pain. Evaluate for possible small bowel obstruction. ORAL CONTRAST: Partial prescribed oral contrast ingested. RADIATION DOSE: 6.64 CTDIvol (mGy) MEDICAL HISTORY : Hypertension. Cardiovascular disease Renal failure SURGICAL HISTORY : None. ENCOUNTER: Initial ACUITY: 1 week PAIN SCALE: 6/10 LOCATION: mid abdomen TECHNIQUE: Volumetric scanning of the abdomen and pelvis was performed. Using automated exposure control and ad justment of the mA and/or kV according to patient size, radiation dose was kept as low as reasonably achievable to obtain optimal diagnostic quality images. DICOM format image data is available electro nically for review and comparison. FINDINGS: LOWER LUNGS: Bibasilar atelectasis. LIVER: Homogeneous density without lesion. There is no dilation of the biliary tree. No calcified gallston es. Large volume ascites. SPLEEN: Normal size without lesion. PANCREAS: Within normal limits. KIDNEYS: 2 numerous to count bilateral renal cysts. A few punctate nonobstructing renal L2 to 3 mm bilaterally .. There is no mass, stone, or hydronephrosis. Peritoneal dialysis catheter with tip in the left low er abdomen. ADRENAL GLANDS: Within normal limits. VASCULAR: There is no aortic aneurysm. Atherosclerotic changes. BOWEL/MESENTERY: Multiple dilated proximal small bowel loops are seen. There is air in the proximal colon. There is no free intraperitoneal air or fluid. ABDOMINAL WALL: Within normal limits. RETROPERITONEUM: There is no lymphadenopathy. BLADDER: No wall thickening or mass. REPRODUCTIVE: Within normal limits. INGUINAL: There is no lymphadenopathy or hernia. MUSCULOSKELETAL: Within normal limits for patient age. CONCLUSION: 1. Large volume ascites. 2. Polycystic kidney disease. 3. Multiple dilated proximal small bowel loops, likely ileus. Dayton Johnson MD on April 25, 2017 at 12:40 Board Certified Radiologist. This report was verified electronically.
--- NOTE | 2017-04-25 14:42 | HHI.PR ---
cc: Monster Pierre MD Subjective Subjective Notes Resting in bed Tolerating clear liquids Objective Vitals/I&O Vital Signs Date Time Temp Pulse Resp B/P (MAP) Pulse Ox O2 Delivery O2 Flow Rate FiO2 04/25/17 14:00 82 04/25/17 12:00 97.7 17 138/90 (106) 100 Labs Laboratory Tests Test 04/25/17 03:30 White Blood Count 4.0 Red Blood Count 2.66 Hemoglobin 8.6 Hematocrit 25.2 Mean Corpuscular Volume 94.4 Mean Corpuscular Hemoglobin 32.1 Mean Corpuscular Hemoglobin Concent 34.0 Red Cell Distribution Width 15.8 Platelet Count 195 Mean Platelet Volume 10.3 Neutrophils (%) (Auto) 56.5 Lymphocytes (%) (Auto) 25.9 Monocytes (%) (Auto) 15.1 Eosinophils (%) (Auto) 1.2 Basophils (%) (Auto) 1.3 Neutrophils # (Auto) 2.3 Lymphocytes # (Auto) 1.0 Monocytes # (Auto) 0.6 Eosinophils # (Auto) 0.0 Basophils # (Auto) 0.1 CBC Comment DIFF FINAL Differential Comment Blood Urea Nitrogen 70 Creatinine 21.54 Random Glucose 95 Calcium Level 8.9 Sodium Level 136 Potassium Level 4.4 Chloride Level 95 Carbon Dioxide Level 26.5 Anion Gap 15 Estimat Glomerular Filtration Rate 2 Date/Time Source Procedure Growth Status 04/23/17 19:19 Blood Peripheral Aerobic Blood Culture - Preliminary NO GROWTH IN 2 DAYS Resulted 04/23/17 19:19 Blood Peripheral Anaerobic Blood Culture - Preliminary NO GROWTH IN 2 DAYS Resulted 04/23/17 20:34 Fluid Peritoneal Fluid Acid Fast Stain - Final NO ACID FAST BACILLI SEEN Resulted 04/23/17 20:34 Fluid Peritoneal Fluid Mycobacterial Culture Pending Resulted Radiology Last 48 hours Impressions Abdomen X-Ray 04/23/17 0000 Signed Impressions: Service Date/Time: Sunday, April 23, 2017 20:13 - CONCLUSION: Small bowel obstruction. Anup Mcnamara MD Cardiovascular: Regular Lungs: Clear Abdomen: Other (tender to palpation; PD cath in place ) Extremities: No edema A/P Assessment and Plan 36 year old male with ESDR on PD; abdominal pain -Await CT results -Likely ileus rather than SBO -Continue sips of clear liquids -Nephrology following Attending Statement patient seen at bedside CT pending will follow up on results appears more toward ileus will also be available for PD cath removal or replacement if needed Attestation The exam, history, and the medical decision-making described in the above note were completed with the assistance of the mid-level provider. I reviewed and agree with the findings presented. I attest that I had a [id number] encounter with the patient on the same day, and personally performed and documented my assessment and findings in the medical record. Mamta Quintana/First Linda CAPELLAN Apr 25, 2017 14:42 Monster Pierre MD Apr 29, 2017 11:01
--- NOTE | 2017-04-25 15:13 | HHI.NPPN ---
Subjective History of Present Illness Hx of ESRD on PD peritonitis Objective Data Data 04/25/17 04/26/17 19:00 07:00 Output Total 738 ml Balance -738 ml Peritoneal Fluid 738 ml Vital Signs Date Time Temp Pulse Resp B/P (MAP) Pulse Ox O2 Delivery O2 Flow Rate FiO2 04/25/17 14:00 82 04/25/17 12:00 76 04/25/17 12:00 97.7 76 17 138/90 (106) 100 04/25/17 11:37 14 04/25/17 10:00 71 04/25/17 08:00 70 04/25/17 08:00 97.7 70 34 111/66 (81) 100 04/25/17 06:00 66 04/25/17 04:00 98.6 64 12 90/55 (67) 98 04/25/17 04:00 64 04/25/17 02:00 67 04/25/17 00:00 98.2 81 19 117/78 (91) 100 04/25/17 00:00 81 04/24/17 22:00 99 04/24/17 20:00 100 04/24/17 20:00 98.7 100 13 187/104 (131) 100 04/24/17 18:00 100 04/24/17 16:00 98.0 95 24 222/127 (158) 98 04/24/17 16:00 95 -: 04/25/17 0330 04/25/17 0330 Physical Exam General Appearance: Well Developed, Well Nourished Neck Neck Exam: Neck Supple Pulmonary Resp Exam: Clear Bilaterally Cardiology CV Exam: Regular, Normal Sinus Rhythm Gastrointestinal/Abdomen GI Exam: Soft, Non-Tender, Bowel Sounds Present Extremeties Extremities Exam: No Edema Assessment/Plan Problem List: (1) ESRD (end stage renal disease) on dialysis ICD Codes: N18.6 - End stage renal disease; Z99.2 - Dependence on renal dialysis Plan: PD fluid culture Staph coag neg dc Fortaz continue with Vancomycin 1 gm q 7 days with PD on Vanc CT SBO likely ileus Ask surgery to see follow BMP (2) Hypertensive crisis ICD Codes: I16.9 - Hypertensive crisis, unspecified Plan: improved with Catapres TTS # 3 patch Mario Cuba MD Apr 25, 2017 15:13
[2017-04-25] MEDS: LABETALOL HCL 100 MG/20 ML VIAL IV PUSH PRN ×2 (17:30→21:22)
[2017-04-25] MEDS: LACTULOSE SYRUP 20 GM/30 ML CUP PO PRN (19:56)
[2017-04-26] VITALS (12 sets, daily range): BP systolic 118–168; BP diastolic 70–107; PULSE 76–92; RESP 15–75; TEMP 97.8–99.2; O2SAT 98–100
[2017-04-26] MEDS: oxyCODONE/ACETAMINOPHEN 5 MG/325 MG TAB PO PRN ×4 (03:39→17:44)
[2017-04-26] MEDS: ONDANSETRON HCL 4 MG/2 ML VIAL IV PUSH PRN (03:39)
[2017-04-26] MEDS: CHLORHEXIDINE GLUCONATE 2 % 1 PACK (2 CLOTHS) TOP SCH (04:00)
[2017-04-26] MEDS: cloNIDine HCL 0.2 MG TAB PO SCH ×3 (05:25→22:59)
[2017-04-26] MEDS: hydrALAZINE HCL 50 MG TAB PO SCH ×3 (05:25→22:59)
[2017-04-26] MEDS: HEPARIN SODIUM - SQ 10,000 UNITS/ML VIAL SQ SCH ×2 (06:20→17:47)
[2017-04-26] MEDS: ALPRAZolam 0.5 MG TAB PO PRN ×2 (06:20→17:44)
[2017-04-26] MEDS: ABACAVIR SULFATE 300 MG TAB PO SCH (08:41)
[2017-04-26] MEDS: NIFEdipine 60 MG SUSTAINED RELEASE TAB PO SCH ×2 (08:42→19:42)
[2017-04-26] MEDS: CALCITRIOL 0.25 MCG CAP PO SCH ×3 (08:42→17:44)
[2017-04-26] MEDS: DOCUSATE SODIUM 50 MG/SENNA 8.6 MG TAB PO SCH ×2 (08:42→19:43)
[2017-04-26] MEDS: DOLUTEGRAVIR SODIUM 50 MG TAB PO SCH (08:42)
[2017-04-26] MEDS: FAMOTIDINE 20 MG TAB PO SCH ×2 (08:42→19:47)
[2017-04-26] MEDS: CINACALCET HYDROCHLORIDE 30 MG TAB PO SCH (08:43)
[2017-04-26] MEDS: CARVEDILOL 12.5 MG TAB PO SCH ×2 (08:43→19:43)
--- NOTE | 2017-04-26 09:23 | HHI.IDPN ---
Subjective Subjective Remarks Mr. Christian is a 36-year-old male with past medical history significant for end-stage renal disease on peritoneal dialysis since 2009. Patient's busher helper is Dr. Ajay Mckenzie in [place]. Patient reports having a renal biopsy and sure if this is HIV related end-stage renal disease or not. Patient reports that he has had at least one prior peritoneal dialysis catheter related peritonitis episode in the past needing removal of the PD catheter. Patient's past medical history is also significant for HIV diagnosed in 2009. Patient is not aware of his CD4 count but reports an undetectable viral load 6 months ago. In addition to this he also reports chronic constipation. Patient follows with an infectious disease doctor in [place] but has recently moved to [place] and is in need of a infectious disease doctor in that area. Patient denies any prior opportunistic infections such as PCP, fungal etc. With this background patient presented to the hospital in [facility] with complaints of abdominal discomfort which she reported appeared to be similar to prior episodes of peritonitis. He also reported chills but denied any fevers. He reports subjective fevers. On April 21 he reports that her paternal dialysis session he noted the fluid was cloudy. He reports decreased appetite since April 20. Reports nausea and vomiting at least once a day itches nonbloody and nonbilious. His last bowel movement was April 20. Review of Dr. Dyson notes reveals patient has had at least 4 prior episodes of peritonitis the most recent one was 4 years prior to this admission. While at [facility] patient was found to be afebrile with heart rate in the 80s and hypertensive with systolic blood pressure in the 180s. Labs drawn at that hospital indicated WBC of 6.5, platelets 205, creatinine 21. Patient was noted to have hyperkalemia with a potassium of 6. He received D50 , insulin 5 units in Kayexalate at the outside hospital. Blood cultures and peritoneal fluid cultures were collected on April 23, 2017 and when I called microbiology the reported that these cultures were no growth to date. His CT abdomen pelvis done at [facility] reportedly showed thickening of the colonic wall associated with dilated air loops of small bowel. Bilateral pleural effusions as well as fluid in the abdomen. Again the disc that arrived to the patient was difficult to open and side haven't been able to review these images personally. I did review medical records from [facility] and called microbiology department and blood cultures as well as pericardial fluid cultures are no growth today. Infectious disease is consulted for evaluation and management of peritoneal dialysis catheter related peritonitis. Notes reviewed No fevers No rash Constipated Abdominal pain is better No vomiting CT A/P noted PD fluid 41 WBC, C/S Staph epi Antibiotics Ceftaz IP Vanco IP Current Medications Medications (Trade) Dose Ordered Sig/Neftaly Route Start Time Stop Time Status Last Admin (NS Flush) 2 ml UNSCH PRN IV FLUSH 04/23/17 19:15 (NS Flush) 2 ml BID IV FLUSH 04/23/17 21:00 04/25/17 19:55 (Percocet 5-325 Mg) 1 tab Q4H PRN PO 04/23/17 19:15 04/24/17 10:07 (Pepcid) 20 mg Q12HR PO 04/23/17 21:00 04/26/17 08:42 (Zofran Inj) 4 mg Q6H PRN IV PUSH 04/23/17 19:15 04/26/17 03:39 (Albuterol Neb) 2.5 mg Q2HR NEB PRN INH 04/23/17 19:15 (Heparin Inj) 5,000 units Q12H SQ 04/23/17 19:30 04/26/17 06:20 Miscellaneous Information 1 Q361D XX 04/23/17 19:15 (Chlorhexidine 2% Cloth) 3 pack Taper DAILY@04 TOP 04/24/17 04:00 04/20/18 03:59 04/26/17 04:00 (Chlorhexidine 2% Cloth) 3 pack UNSCH PRN TOP 04/23/17 19:15 (Shaneka-Colace) 1 tab BID PO 04/23/17 21:00 04/26/17 08:42 (Milk Of Magnesia Liq) 30 ml Q12H PRN PO 04/23/17 19:15 (Senokot) 17.2 mg Q12H PRN PO 04/23/17 19:15 (Dulcolax Supp) 10 mg DAILY PRN RECTAL 04/23/17 19:15 (Lactulose Liq) 30 ml DAILY PRN PO 04/23/17 19:15 04/25/17 19:56 (Percocet 5-325 Mg) 2 tab Q4H PRN PO 04/23/17 19:15 04/26/17 08:42 (Xanax) 0.5 mg Q8H PRN PO 04/23/17 19:15 04/26/17 06:20 (Rocaltrol) 0.5 mcg TID PO 04/24/17 09:00 04/26/17 08:42 (Coreg) 25 mg Q12HR PO 04/23/17 21:00 04/26/17 08:43 (Sensipar) 60 mg DAILY PO 04/24/17 09:00 04/26/17 08:43 (Catapres) 0.2 mg Q8HR PO 04/23/17 22:00 04/26/17 05:25 (Prinivil) 20 mg Q12HR PO 04/23/17 21:00 04/25/17 19:56 (Apresoline) 50 mg Q8HR PO 04/23/17 22:00 04/26/17 05:25 (Trandate Inj) 10 mg Q4H PRN IV PUSH 04/23/17 19:30 04/25/17 21:22 (Apresoline Inj) 10 mg Q4H PRN IV PUSH 04/23/17 19:15 04/23/17 20:06 (Heparin Inj) 1,000 units WITH DIALYSIS PRN XX 04/23/17 19:30 (NS Flush) 10 ml UNSCH PRN IV FLUSH 04/23/17 19:30 (Vancomycin Inj) 1,000 mg Q7D IP 04/23/17 19:30 04/23/17 19:30 (Fortaz Inj) 1,000 mg DAILY IP 04/23/17 19:30 04/25/17 09:08 (Ziagen) 600 mg DAILY PO 04/24/17 09:00 04/26/17 08:41 (Epivir) 300 mg DAILY PO 04/24/17 09:00 04/26/17 08:42 (Procardia Xl) 60 mg Q12HR PO 04/23/17 22:00 04/26/17 08:42 (Catapres-Tts 0.3 Mg Patch.7d) 1 patch Q7D T-DERMAL 04/24/17 16:00 04/24/17 16:00 Miscellaneous Information 1 Q7D T-DERMAL 05/01/17 16:00 (Vasotec Inj) 2.5 mg Q6H PRN IV PUSH 04/24/17 17:00 04/24/17 19:08 Lines Line sites with no e.o infection Past Medical History Past Medical History ESRD busher helper is Ajay Mckenzie. He states he is anuric. Has had prior renal biopsy. He states he is unclear etiology of renal failure. HIV diagnosed in 2009 he has been under the care of Jose Armando Daly in [place]. He last saw him 6 months ago and reportedly had an undetectable viral load. He recently relocated to [place] and is looking for another ID physician HTN Anxiety He has had 4 prior episodes of peritonitis. Peritoneal catheter was removed and then replaced a month later in 2013. Gastritis per prior EGD 1 year ago Chronic constipation Past Surgical History Renal biopsy in 2009 Tenckhoff catheter placement 2009 PD catheter removal PD catheter replacement in 2013 Inguinal hernia repair EGD and colonoscopy in early 2016 Allergies: Coded Allergies: No Known Allergies (Unverified , 04/23/17) Objective . Vital Signs Date Time Temp Pulse Resp B/P (MAP) Pulse Ox O2 Delivery O2 Flow Rate FiO2 04/26/17 08:00 88 04/26/17 08:00 99.2 88 27 147/87 (107) 98 04/26/17 06:00 87 04/26/17 04:00 87 04/26/17 04:00 98.4 87 38 168/107 (127) 100 04/26/17 02:00 91 04/26/17 00:00 98.1 92 16 162/98 (119) 99 04/26/17 00:00 92 04/25/17 22:00 88 04/25/17 20:00 87 04/25/17 20:00 98.2 87 20 200/124 (149) 100 04/25/17 18:00 83 04/25/17 17:00 89 40 163/110 (127) 100 04/25/17 16:57 24 04/25/17 16:00 86 04/25/17 16:00 98.4 86 25 150/99 (116) 99 04/25/17 14:00 82 04/25/17 12:00 76 04/25/17 12:00 97.7 76 17 138/90 (106) 100 04/25/17 10:00 71 04/26/17 04/26/17 04/27/17 14:59 22:59 06:59 Output Total 3456 ml Balance -3456 ml Peritoneal Fluid 3456 ml . Laboratory Tests Test 04/25/17 03:30 White Blood Count 4.0 TH/MM3 Red Blood Count 2.66 MIL/MM3 Hemoglobin 8.6 GM/DL Hematocrit 25.2 % Mean Corpuscular Volume 94.4 FL Mean Corpuscular Hemoglobin 32.1 PG Mean Corpuscular Hemoglobin Concent 34.0 % Red Cell Distribution Width 15.8 % Platelet Count 195 TH/MM3 Mean Platelet Volume 10.3 FL Neutrophils (%) (Auto) 56.5 % Lymphocytes (%) (Auto) 25.9 % Monocytes (%) (Auto) 15.1 % Eosinophils (%) (Auto) 1.2 % Basophils (%) (Auto) 1.3 % Neutrophils # (Auto) 2.3 TH/MM3 Lymphocytes # (Auto) 1.0 TH/MM3 Monocytes # (Auto) 0.6 TH/MM3 Eosinophils # (Auto) 0.0 TH/MM3 Basophils # (Auto) 0.1 TH/MM3 CBC Comment DIFF FINAL Differential Comment Laboratory Tests Test 04/25/17 03:30 Blood Urea Nitrogen 70 MG/DL Creatinine 21.54 MG/DL Random Glucose 95 MG/DL Calcium Level 8.9 MG/DL Sodium Level 136 MEQ/L Potassium Level 4.4 MEQ/L Chloride Level 95 MEQ/L Carbon Dioxide Level 26.5 MEQ/L Anion Gap 15 MEQ/L Estimat Glomerular Filtration Rate 2 ML/MIN Microbiology Date/Time Source Procedure Growth Status 04/23/17 19:19 Blood Peripheral Aerobic Blood Culture - Preliminary NO GROWTH IN 2 DAYS Resulted 04/23/17 19:19 Blood Peripheral Anaerobic Blood Culture - Preliminary NO GROWTH IN 2 DAYS Resulted 04/23/17 19:13 Blood Peripheral Aerobic Blood Culture - Preliminary NO GROWTH IN 2 DAYS Resulted 04/23/17 19:13 Blood Peripheral Anaerobic Blood Culture - Preliminary NO GROWTH IN 2 DAYS Resulted 04/23/17 20:34 Fluid Peritoneal Fluid Acid Fast Stain - Final NO ACID FAST BACILLI SEEN Resulted 04/23/17 20:34 Fluid Peritoneal Fluid Mycobacterial Culture Pending Resulted 04/23/17 20:34 Fluid Peritoneal Fluid Fungal Smear - Final NO FUNGAL ELEMENTS SEEN. Resulted 04/23/17 20:34 Fluid Peritoneal Fluid Fungal Culture Pending Resulted 04/23/17 20:34 Fluid Peritoneal Fluid Gram Stain - Final Complete 04/23/17 20:34 Body Fluid Culture - Final Staphylococcus Epidermidis Complete Imaging Last Impressions Abdomen X-Ray 04/23/17 0000 Signed Impressions: Service Date/Time: Sunday, April 23, 2017 20:13 - CONCLUSION: Small bowel obstruction. Anup Mcnamara MD Physical Exam GENERAL: Awake and alert, in no apparent distress. SKIN: No rashes, ecchymoses or lesions. Cool and dry. HEAD: Atraumatic. Normocephalic. No temporal or scalp tenderness. EYES: Pupils equal round and reactive. Extraocular motions intact. No scleral icterus. No injection or drainage. ENT: Nose without bleeding, purulent drainage. Moist mucosa, no oral lesions. NECK: Trachea midline. Supple, nontender, no meningeal signs. CARDIOVASCULAR: Systolic murmur noted. RESPIRATORY: Clear to auscultation. Breath sounds equal bilaterally. No wheezes , rales, or rhonchi. GASTROINTESTINAL: Abdomen distended, not tender, no guarding. PD cath site ok , no evidence of infection, dry. MUSCULOSKELETAL: Extremities without clubbing, cyanosis, or edema. No calf tenderness. Negative Homans sign bilaterally. NEUROLOGICAL: Awake and alert. Nonfocal exam Psych cooperative IV line sites with no evidence of infection. Assessment & Plan Remarks Peritoneal dialysis catheter related peritonitis Small Bowel Obstruction. Surgery following. End-stage renal disease on PD Prior history of 4 episodes of peritonitis with 1 episode where PD catheter needed removal and change. Patient reports that he has received a letter for being listed on the renal transplant at [facility]. 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 Recommendations: Continue IP Vanco Stop IP Fortaz Continue HAART per his infectious disease doctor Currently no evidence of any systemic infection as an blood withhold any systemic antibiotics at the present time Follow cultures from [facility] as well as [facility] Monitor progress Discussed with patient Marya Wise MD Apr 26, 2017 09:23
[2017-04-26] MEDS: LISINOPRIL 20 MG TAB PO SCH ×2 (09:46→19:42)
[2017-04-26] MEDS: SODIUM CHLORIDE 0.9% FLUSH 10 ML FLUSH IV FLUSH SCH ×2 (09:46→19:47)
--- NOTE | 2017-04-26 09:50 | HHI.NPPN ---
Subjective History of Present Illness Hx of ESRD on PD peritonitis Objective Data Data 04/26/17 04/27/17 19:00 07:00 Output Total 3456 ml Balance -3456 ml Peritoneal Fluid 3456 ml Vital Signs Date Time Temp Pulse Resp B/P (MAP) Pulse Ox O2 Delivery O2 Flow Rate FiO2 04/26/17 08:00 88 04/26/17 08:00 99.2 88 27 147/87 (107) 98 04/26/17 06:00 87 04/26/17 04:00 87 04/26/17 04:00 98.4 87 38 168/107 (127) 100 04/26/17 02:00 91 04/26/17 00:00 98.1 92 16 162/98 (119) 99 04/26/17 00:00 92 04/25/17 22:00 88 04/25/17 20:00 87 04/25/17 20:00 98.2 87 20 200/124 (149) 100 04/25/17 18:00 83 04/25/17 17:00 89 40 163/110 (127) 100 04/25/17 16:57 24 04/25/17 16:00 86 04/25/17 16:00 98.4 86 25 150/99 (116) 99 04/25/17 14:00 82 04/25/17 12:00 76 04/25/17 12:00 97.7 76 17 138/90 (106) 100 04/25/17 10:00 71 -: 04/25/17 0330 04/25/17 0330 Physical Exam General Appearance: Well Developed, Well Nourished Neck Neck Exam: Neck Supple Pulmonary Resp Exam: Clear Bilaterally Cardiology CV Exam: Regular, Normal Sinus Rhythm Gastrointestinal/Abdomen GI Exam: Soft, Non-Tender, Bowel Sounds Present Extremeties Extremities Exam: No Edema Assessment/Plan Problem List: (1) ESRD (end stage renal disease) on dialysis ICD Codes: N18.6 - End stage renal disease; Z99.2 - Dependence on renal dialysis Plan: Peritoneal dialysis ordered and this will be carried out with antibiotics coverage in the last several vancomycin 1 g Gram stain and culture and sensitivity staph cog neg cont Vanco Patient changed the setting of machine non compliant did not get dialysis as prescribed (2) Hypertensive crisis ICD Codes: I16.9 - Hypertensive crisis, unspecified Plan: Hypertension and resume his outpatient medications in the ICU he may need IV coverage for when necessary (3) Peritonitis ICD Codes: K65.9 - Peritonitis, unspecified Plan: check c/s IP antibiotics Mario Cuba MD Apr 26, 2017 09:50
--- NOTE | 2017-04-26 13:54 | HHI.PR ---
cc: Monster Pierre MD Subjective Subjective Notes Feeling better Hungry Objective Vitals/I&O Vital Signs Date Time Temp Pulse Resp B/P (MAP) Pulse Ox O2 Delivery O2 Flow Rate FiO2 04/26/17 10:00 86 04/26/17 08:00 99.2 27 147/87 (107) 98 Labs Date/Time Source Procedure Growth Status 04/23/17 19:19 Blood Peripheral Aerobic Blood Culture - Preliminary NO GROWTH IN 3 DAYS Resulted 04/23/17 19:19 Blood Peripheral Anaerobic Blood Culture - Preliminary NO GROWTH IN 3 DAYS Resulted 04/23/17 20:34 Fluid Peritoneal Fluid Acid Fast Stain - Final NO ACID FAST BACILLI SEEN Resulted 04/23/17 20:34 Fluid Peritoneal Fluid Mycobacterial Culture Pending Resulted Radiology Last 48 hours Impressions Abdomen X-Ray 04/23/17 0000 Signed Impressions: Service Date/Time: Sunday, April 23, 2017 20:13 - CONCLUSION: Small bowel obstruction. Anup Mcnamara MD Cardiovascular: Regular Lungs: Clear Abdomen: Other (les tender to palpation on exam; PD cath ) Extremities: No edema A/P Assessment and Plan 36 year old male with ESDR on PD; abdominal pain -CT scan consistent with ileus -Continue clear liquids--- advance once more bowel activity -Will follow for possible PD cath removal -- Spoke with Dr. Wise -Nephrology following Attending Statement patient seen at bedside ct shows ileus, appears improving PD cath tx pending Mamta Quintana/Architectural Representative [employer] TEACHER Apr 26, 2017 13:54 Monster Pierre MD May 02, 2017 15:24
--- NOTE | 2017-04-26 17:12 | HHI.PR ---
Subjective Remarks clinical account specialist Notes: 36 yo -[place] male with past medical history of ESRD on PD since 2009 ( under the care of Ajay Mckenzie in [place]), HIV diagnosed in 2009 on HAART with reportedly undetectable viral load 6 months ago, HTN, chronic constipation who presented to [facility] this morning with concerns for peritonitis. He states that on 04/21/17 he developed abdominal discomfort which he recognized as being similar to prior episodes of peritonitis. He had chills. He did not check his temperature. On 04/21 he noted that his peritoneal fluid appeared cloudy. He has had very little appetite and very little to eat since 04/20. He was nauseous and vomited once today, nonbloody nonbilious. Last bowel movement was 04/20. He has had 4 prior episodes of peritonitis, the most recent was 4 years ago. Catheter has been removed and replaced on one occasion in 2013. At the outside hospital he was afebrile with heart rate in the 80s and hypertensive with systolic in the 180s. Labs were drawn at 9:30 AM on 04/23 white blood cell count was 6.5, hemoglobin 11, platelets 209. Sodium was 138, potassium 6, chloride 94, bicarb 23, BUN 84 , creatinine 21, glucose 105, calcium 8.7, LFTs normal, albumin 3.9. Coags were all within normal limits. He received D50, insulin 5 units, Kayexalate 45 g p.o., sodium bicarb 150 mEq at outside hospital. Blood cultures and peritoneal cultures were sent. He received Zosyn 3.375 g IV and vancomycin 500 mg IV. He also received Zofran and a total of 2.5 mg of Dilaudid and 4 mg of morphine. Reportedly he had a repeat potassium that was 5.0. CT abdomen and pelvis at outside hospital with ports focally dilated air loops of small bowel which may represent ileus. SBO cannot be excluded. Thickening of the colonic wall through the majority of its course which may be reactive versus infectious/ inflammatory. Bilateral pleural effusions. 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 Hospitalist Notes: 04/24: as per Nephrology specialist to continue on Vancomycin and Ceftazidime. CT ordered. asked for Surgery evaluation. for Hypertensive Emergency recommended Catapres Patch. Infectious Disease specialist following, with Diagnosis of Peritoneal Dialysis catheter related peritonitis, prior history of four episodes of peritonitis with one episode of peritoneal catheter removal, HIV nephropathy, recommended to continue HAART therapy , continue Ceftazidime intraperitoneally, Vancomycin intraperitoneally, seen in his bedroom and discussed with nurse no new issues, awaiting for Surgical consult 04/25: Seen in his bedroom in the presence of his Mother, improving clinically, encourage ambulation. 04/26: new CT abdomen consistent with Ileus, no nausea, vomit or diarrhea, is passing gas, encourage ambulation. Objective Vital Signs Date Time Temp Pulse Resp B/P (MAP) Pulse Ox O2 Delivery O2 Flow Rate FiO2 04/26/17 16:00 97.8 76 75 135/85 (102) 99 04/26/17 16:00 76 04/26/17 15:00 11 04/26/17 14:00 78 04/26/17 12:00 80 04/26/17 12:00 98.3 80 42 118/70 (86) 99 04/26/17 10:00 86 04/26/17 08:00 88 04/26/17 08:00 99.2 88 27 147/87 (107) 98 04/26/17 06:00 87 04/26/17 04:00 87 04/26/17 04:00 98.4 87 38 168/107 (127) 100 04/26/17 02:00 91 04/26/17 00:00 98.1 92 16 162/98 (119) 99 04/26/17 00:00 92 04/25/17 22:00 88 04/25/17 20:00 87 04/25/17 20:00 98.2 87 20 200/124 (149) 100 04/25/17 18:00 83 I/O 04/25/17 04/25/17 04/25/17 04/26/17 04/26/17 04/26/17 07:00 15:00 23:00 07:00 15:00 23:00 Intake Total 550 ml 350 ml 240 ml Output Total 0 ml 738 ml 0 ml 3456 ml Balance 550 ml -738 ml 350 ml 240 ml -3456 ml Intake Oral 550 ml 350 ml 240 ml Output Urine Total 0 ml 0 ml Peritoneal Fluid 738 ml 3456 ml # Voids 0 # Bowel Movements 0 0 0 Result Diagram: 04/25/17 0330 04/25/17 0330 Imaging Last Impressions Abdomen/Pelvis CT 04/24/17 0000 Signed Impressions: Service Date/Time: April 12:22 - CONCLUSION: 1. Large volume ascites. 2. Polycystic kidney disease. 3. Multiple dilated proximal small bowel loops, likely ileus. Dayton Johnson MD Abdomen X-Ray 04/23/17 0000 Signed Impressions: Service Date/Time: Sunday, April 23, 2017 20:13 - CONCLUSION: Small bowel obstruction. Anup Mcnamara MD Procedures None Other Results Laboratory Tests Test 04/23/17 17:51 04/23/17 19:13 04/23/17 20:34 04/25/17 03:30 Nasal Screen MRSA (PCR) MRSA DETECTED Blood Urea Nitrogen 84 MG/DL 70 MG/DL Creatinine 23.07 MG/DL 21.54 MG/DL Random Glucose 88 MG/DL 95 MG/DL Calcium Level 8.4 MG/DL 8.9 MG/DL Phosphorus Level 8.0 MG/DL Magnesium Level 2.1 MG/DL Sodium Level 137 MEQ/L 136 MEQ/L Potassium Level 5.5 MEQ/L 4.4 MEQ/L Chloride Level 98 MEQ/L 95 MEQ/L Carbon Dioxide Level 25.5 MEQ/L 26.5 MEQ/L Peritoneal Fluid WBC 41 /MM3 Peritoneal Fluid RBC 20 /MM3 Peritoneal Fluid Neutrophils 20 % Peritoneal Fluid Lymphocytes 71 % Peritoneal Fluid Monocytes 3 % Peritoneal Fluid Eosinophils 3 % Peritoneal Fluid Histiocytes 2 % Peritoneal Fluid Mesothelial Cells 1 % White Blood Count 4.0 TH/MM3 Red Blood Count 2.66 MIL/MM3 Hemoglobin 8.6 GM/DL Hematocrit 25.2 % Mean Corpuscular Volume 94.4 FL Mean Corpuscular Hemoglobin 32.1 PG Mean Corpuscular Hemoglobin Concent 34.0 % Red Cell Distribution Width 15.8 % Platelet Count 195 TH/MM3 Mean Platelet Volume 10.3 FL Neutrophils (%) (Auto) 56.5 % Lymphocytes (%) (Auto) 25.9 % Monocytes (%) (Auto) 15.1 % Eosinophils (%) (Auto) 1.2 % Basophils (%) (Auto) 1.3 % Neutrophils # (Auto) 2.3 TH/MM3 Lymphocytes # (Auto) 1.0 TH/MM3 Monocytes # (Auto) 0.6 TH/MM3 Eosinophils # (Auto) 0.0 TH/MM3 Basophils # (Auto) 0.1 TH/MM3 CBC Comment DIFF FINAL Differential Comment Anion Gap 15 MEQ/L Estimat Glomerular Filtration Rate 2 ML/MIN Objective Remarks GENERAL: Well-nourished, well-developed male patient who is sitting up in bed, alert and interactive, nontoxic-appearing SKIN: Warm and dry. No rash. Multiple tattoos on neck and chest HEAD: Atraumatic. Normocephalic. EYES: Pupils equal and round, 2 mm and reactive.. No scleral icterus. No injection or drainage. ENT: No nasal bleeding or discharge. Mucous membranes pink and moist. No pharyngeal erythema. NECK: Trachea midline. No JVD. CARDIOVASCULAR: Regular rate and rhythm, sinus rhythm on monitor with rate in the 80s. No murmurs rubs or gallops appreciated. RESPIRATORY: Breathing comfortably on room air with no accessory muscle use. Clear to auscultation. Breath sounds equal bilaterally. GASTROINTESTINAL: Abdomen soft, peritoneal fluid wave present, tender to palpation with voluntary guarding, no rebound. Bowel sounds hypoactive. Dialysis catheter in place with serous crusting around catheter, no purulent drainage. MUSCULOSKELETAL: Extremities without clubbing, cyanosis, or edema. No obvious deformities. NEUROLOGICAL: Awake and alert. No obvious cranial nerve deficits. Motor grossly within normal limits. Normal speech. Oriented x4. Medications and IVs Current Medications Medications (Trade) Dose Ordered Sig/Neftaly Route Start Time Stop Time Status Last Admin (NS Flush) 2 ml UNSCH PRN IV FLUSH 04/23/17 19:15 (NS Flush) 2 ml BID IV FLUSH 04/23/17 21:00 04/26/17 09:46 (Percocet 5-325 Mg) 1 tab Q4H PRN PO 04/23/17 19:15 04/24/17 10:07 (Pepcid) 20 mg Q12HR PO 04/23/17 21:00 04/26/17 08:42 (Zofran Inj) 4 mg Q6H PRN IV PUSH 04/23/17 19:15 04/26/17 03:39 (Albuterol Neb) 2.5 mg Q2HR NEB PRN INH 04/23/17 19:15 (Heparin Inj) 5,000 units Q12H SQ 04/23/17 19:30 04/26/17 06:20 Miscellaneous Information 1 Q361D XX 04/23/17 19:15 (Chlorhexidine 2% Cloth) 3 pack Taper DAILY@04 TOP 04/24/17 04:00 04/20/18 03:59 04/26/17 04:00 (Chlorhexidine 2% Cloth) 3 pack UNSCH PRN TOP 04/23/17 19:15 (Shaneka-Colace) 1 tab BID PO 04/23/17 21:00 04/26/17 08:42 (Milk Of Magnesia Liq) 30 ml Q12H PRN PO 04/23/17 19:15 (Senokot) 17.2 mg Q12H PRN PO 04/23/17 19:15 (Dulcolax Supp) 10 mg DAILY PRN RECTAL 04/23/17 19:15 (Lactulose Liq) 30 ml DAILY PRN PO 04/23/17 19:15 04/25/17 19:56 (Percocet 5-325 Mg) 2 tab Q4H PRN PO 04/23/17 19:15 04/26/17 13:36 (Xanax) 0.5 mg Q8H PRN PO 04/23/17 19:15 04/26/17 06:20 (Rocaltrol) 0.5 mcg TID PO 04/24/17 09:00 04/26/17 13:32 (Coreg) 25 mg Q12HR PO 04/23/17 21:00 04/26/17 08:43 (Sensipar) 60 mg DAILY PO 04/24/17 09:00 04/26/17 08:43 (Catapres) 0.2 mg Q8HR PO 04/23/17 22:00 04/26/17 13:32 (Prinivil) 20 mg Q12HR PO 04/23/17 21:00 04/26/17 09:46 (Apresoline) 50 mg Q8HR PO 04/23/17 22:00 04/26/17 13:32 (Trandate Inj) 10 mg Q4H PRN IV PUSH 04/23/17 19:30 04/25/17 21:22 (Apresoline Inj) 10 mg Q4H PRN IV PUSH 04/23/17 19:15 04/23/17 20:06 (Heparin Inj) 1,000 units WITH DIALYSIS PRN XX 04/23/17 19:30 (NS Flush) 10 ml UNSCH PRN IV FLUSH 04/23/17 19:30 (Vancomycin Inj) 1,000 mg Q7D IP 04/23/17 19:30 04/23/17 19:30 (Ziagen) 600 mg DAILY PO 04/24/17 09:00 04/26/17 08:41 (Epivir) 300 mg DAILY PO 04/24/17 09:00 04/26/17 08:42 (Procardia Xl) 60 mg Q12HR PO 04/23/17 22:00 04/26/17 08:42 (Catapres-Tts 0.3 Mg Patch.7d) 1 patch Q7D T-DERMAL 04/24/17 16:00 04/24/17 16:00 Miscellaneous Information 1 Q7D T-DERMAL 05/01/17 16:00 (Vasotec Inj) 2.5 mg Q6H PRN IV PUSH 04/24/17 17:00 04/24/17 19:08 A/P Assessment and Plan 1. Peritonitis/Small bowel obstruction patient started on Intraperitoneal antibiotics, Nephrology specialist following Doctor Rosa Elena has thickening of the Colonic wall through the majority of its course which may be reactive versus infectious/inflammatory 04/24: as per Nephrology specialist to continue on Vancomycin and Ceftazidime intraperitoneally. CT ordered. asked for Surgery evaluation. Infectious Disease specialist following, with Diagnosis of Peritoneal Dialysis catheter related peritonitis, prior history of four episodes of peritonitis with one episode of peritoneal catheter removal, Improving clinically. 2. Hypertensive Emergency on Catapres patch by Nephrology and Labetalol PRN, patient allergic to Hydralazine. Improving on Labetalol. 3. Hypertension to continue Coreg 25 mg BID, Clonidine 0.2 mg TID, Lisinopril 20 mg PO twice a day, Nifedipine ER 60 mg BID, Hydralazine 50 mg TID 4. ESRD on Peritoneal dialysis/Acute Hyperkalemia, He received D50, insulin 5 units, Kayexalate 45 g p.o., sodium bicarb 150 mEq at outside hospital. Nephrology following. 5. HIV/Peritonitis with indwelling peritoneal dialysis catheter undetectable viral load approximately six months ago, follow blood and peritoneal fluid cultures intraperitoneal antibiotics, continue Triumeq tablets 1 tabl by mouth daily. ID following. 6. Anxiety disorder on Xanax 7. HIV nephropathy, recommended to continue HAART therapy, 8. Ileus improving today passing gas, CT consistent with Ileus. PROPH: SCDs for DVT prophylaxis. Heparin 5000 units subcu every 12 hours for DVT prophylaxis. Famotidine 20 mg p.o. twice daily for stress ulcer prophylaxis Discharge Planning Not yet cleared for discharge. Alexey Black MD Apr 26, 2017 17:12
[2017-04-27] VITALS (11 sets, daily range): BP systolic 99–134; BP diastolic 58–88; PULSE 68–81; RESP 10–37; TEMP 97.6–98.6; O2SAT 98–99
[2017-04-27] MEDS: ALPRAZolam 0.5 MG TAB PO PRN ×2 (00:35→09:53)
[2017-04-27] MEDS: oxyCODONE/ACETAMINOPHEN 5 MG/325 MG TAB PO PRN ×3 (00:35→22:29)
[2017-04-27] MEDS: CHLORHEXIDINE GLUCONATE 2 % 1 PACK (2 CLOTHS) TOP SCH (04:00)
[2017-04-27] MEDS: LACTULOSE SYRUP 20 GM/30 ML CUP PO PRN (06:53)
[2017-04-27] MEDS: hydrALAZINE HCL 50 MG TAB PO SCH ×3 (07:27→22:29)
[2017-04-27] MEDS: cloNIDine HCL 0.2 MG TAB PO SCH ×3 (07:27→22:29)
[2017-04-27] MEDS: HEPARIN SODIUM - SQ 10,000 UNITS/ML VIAL SQ SCH ×2 (07:30→19:52)
--- NOTE | 2017-04-27 08:13 | HHI.PR ---
Subjective Remarks patient care specialist Notes: 36 yo -Portuguese male with past medical history of ESRD on PD since 2009 ( under the care of Ajay Mckenzie in [place]), HIV diagnosed in 2009 on HAART with reportedly undetectable viral load 6 months ago, HTN, chronic constipation who presented to [facility] this morning with concerns for peritonitis. He states that on 04/21/17 he developed abdominal discomfort which he recognized as being similar to prior episodes of peritonitis. He had chills. He did not check his temperature. On 04/21 he noted that his peritoneal fluid appeared cloudy. He has had very little appetite and very little to eat since 04/20. He was nauseous and vomited once today, nonbloody nonbilious. Last bowel movement was 04/20. He has had 4 prior episodes of peritonitis, the most recent was 4 years ago. Catheter has been removed and replaced on one occasion in 2013. At the outside hospital he was afebrile with heart rate in the 80s and hypertensive with systolic in the 180s. Labs were drawn at 9:30 AM on 04/23 white blood cell count was 6.5, hemoglobin 11, platelets 209. Sodium was 138, potassium 6, chloride 94, bicarb 23, BUN 84 , creatinine 21, glucose 105, calcium 8.7, LFTs normal, albumin 3.9. Coags were all within normal limits. He received D50, insulin 5 units, Kayexalate 45 g p.o., sodium bicarb 150 mEq at outside hospital. Blood cultures and peritoneal cultures were sent. He received Zosyn 3.375 g IV and vancomycin 500 mg IV. He also received Zofran and a total of 2.5 mg of Dilaudid and 4 mg of morphine. Reportedly he had a repeat potassium that was 5.0. CT abdomen and pelvis at outside hospital with ports focally dilated air loops of small bowel which may represent ileus. SBO cannot be excluded. Thickening of the colonic wall through the majority of its course which may be reactive versus infectious/ inflammatory. Bilateral pleural effusions. 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 Hospitalist Notes: 04/24: as per Nephrology specialist to continue on Vancomycin and Ceftazidime. CT ordered. asked for Surgery evaluation. for Hypertensive Emergency recommended Catapres Patch. Infectious Disease specialist following, with Diagnosis of Peritoneal Dialysis catheter related peritonitis, prior history of four episodes of peritonitis with one episode of peritoneal catheter removal, HIV nephropathy, recommended to continue HAART therapy , continue Ceftazidime intraperitoneally, Vancomycin intraperitoneally, seen in his bedroom and discussed with nurse no new issues, awaiting for Surgical consult 04/25: Seen in his bedroom in the presence of his Mother, improving clinically, encourage ambulation. 04/26: new CT abdomen consistent with Ileus, is passing gas, encourage ambulation. 04/27: Stable seen in his bedroom, no nausea, vomit or diarrhea, but is passing gas, advanced diet. Objective Vital Signs Date Time Temp Pulse Resp B/P (MAP) Pulse Ox O2 Delivery O2 Flow Rate FiO2 04/27/17 07:23 68 04/27/17 04:00 68 04/27/17 04:00 98.6 68 37 104/59 (74) 99 04/27/17 02:00 73 04/27/17 00:00 80 04/27/17 00:00 98.2 80 15 110/69 (83) 98 04/26/17 22:00 82 04/26/17 20:00 82 04/26/17 20:00 98.3 82 15 139/92 (108) 100 04/26/17 18:00 78 04/26/17 16:00 97.8 76 75 135/85 (102) 99 04/26/17 16:00 76 04/26/17 15:00 11 04/26/17 14:00 78 04/26/17 12:00 80 04/26/17 12:00 98.3 80 42 118/70 (86) 99 04/26/17 10:00 86 I/O 04/26/17 04/26/17 04/26/17 04/27/17 04/27/17 04/27/17 07:00 15:00 23:00 07:00 15:00 23:00 Intake Total 240 ml 550 ml 280 ml Output Total 0 ml 3456 ml 0 ml Balance 240 ml -3456 ml 550 ml 280 ml Intake Oral 240 ml 550 ml 280 ml Output Urine Total 0 ml 0 ml Stool Total 0 ml Peritoneal Fluid 3456 ml # Voids 0 0 # Bowel Movements 0 0 0 Result Diagram: 04/25/17 0330 04/25/17 0330 Imaging Last Impressions Abdomen/Pelvis CT 04/24/17 0000 Signed Impressions: Service Date/Time: April 12:22 - CONCLUSION: 1. Large volume ascites. 2. Polycystic kidney disease. 3. Multiple dilated proximal small bowel loops, likely ileus. Dayton Johnson MD Abdomen X-Ray 04/23/17 0000 Signed Impressions: Service Date/Time: Sunday, April 23, 2017 20:13 - CONCLUSION: Small bowel obstruction. Anup Mcnamara MD Procedures None Other Results Laboratory Tests Test 04/23/17 17:51 04/23/17 19:13 04/23/17 20:34 04/25/17 03:30 Nasal Screen MRSA (PCR) MRSA DETECTED Blood Urea Nitrogen 84 MG/DL 70 MG/DL Creatinine 23.07 MG/DL 21.54 MG/DL Random Glucose 88 MG/DL 95 MG/DL Calcium Level 8.4 MG/DL 8.9 MG/DL Phosphorus Level 8.0 MG/DL Magnesium Level 2.1 MG/DL Sodium Level 137 MEQ/L 136 MEQ/L Potassium Level 5.5 MEQ/L 4.4 MEQ/L Chloride Level 98 MEQ/L 95 MEQ/L Carbon Dioxide Level 25.5 MEQ/L 26.5 MEQ/L Peritoneal Fluid WBC 41 /MM3 Peritoneal Fluid RBC 20 /MM3 Peritoneal Fluid Neutrophils 20 % Peritoneal Fluid Lymphocytes 71 % Peritoneal Fluid Monocytes 3 % Peritoneal Fluid Eosinophils 3 % Peritoneal Fluid Histiocytes 2 % Peritoneal Fluid Mesothelial Cells 1 % White Blood Count 4.0 TH/MM3 Red Blood Count 2.66 MIL/MM3 Hemoglobin 8.6 GM/DL Hematocrit 25.2 % Mean Corpuscular Volume 94.4 FL Mean Corpuscular Hemoglobin 32.1 PG Mean Corpuscular Hemoglobin Concent 34.0 % Red Cell Distribution Width 15.8 % Platelet Count 195 TH/MM3 Mean Platelet Volume 10.3 FL Neutrophils (%) (Auto) 56.5 % Lymphocytes (%) (Auto) 25.9 % Monocytes (%) (Auto) 15.1 % Eosinophils (%) (Auto) 1.2 % Basophils (%) (Auto) 1.3 % Neutrophils # (Auto) 2.3 TH/MM3 Lymphocytes # (Auto) 1.0 TH/MM3 Monocytes # (Auto) 0.6 TH/MM3 Eosinophils # (Auto) 0.0 TH/MM3 Basophils # (Auto) 0.1 TH/MM3 CBC Comment DIFF FINAL Differential Comment Anion Gap 15 MEQ/L Estimat Glomerular Filtration Rate 2 ML/MIN Objective Remarks GENERAL: Well-nourished, well-developed male patient who is sitting up in bed, alert and interactive, nontoxic-appearing SKIN: Warm and dry. No rash. Multiple tattoos on neck and chest HEAD: Atraumatic. Normocephalic. EYES: Pupils equal and round, 2 mm and reactive.. No scleral icterus. No injection or drainage. ENT: No nasal bleeding or discharge. Mucous membranes pink and moist. No pharyngeal erythema. NECK: Trachea midline. No JVD. CARDIOVASCULAR: Regular rate and rhythm, sinus rhythm on monitor with rate in the 80s. No murmurs rubs or gallops appreciated. RESPIRATORY: Breathing comfortably on room air with no accessory muscle use. Clear to auscultation. Breath sounds equal bilaterally. GASTROINTESTINAL: Abdomen soft, peritoneal fluid wave present, tender to palpation with voluntary guarding, no rebound. Bowel sounds hypoactive. Dialysis catheter in place with serous crusting around catheter, no purulent drainage. MUSCULOSKELETAL: Extremities without clubbing, cyanosis, or edema. No obvious deformities. NEUROLOGICAL: Awake and alert. No obvious cranial nerve deficits. Motor grossly within normal limits. Normal speech. Oriented x4. Medications and IVs Current Medications Medications (Trade) Dose Ordered Sig/Neftaly Route Start Time Stop Time Status Last Admin (NS Flush) 2 ml UNSCH PRN IV FLUSH 04/23/17 19:15 (NS Flush) 2 ml BID IV FLUSH 04/23/17 21:00 04/26/17 19:47 (Percocet 5-325 Mg) 1 tab Q4H PRN PO 04/23/17 19:15 04/24/17 10:07 (Pepcid) 20 mg Q12HR PO 04/23/17 21:00 04/26/17 19:47 (Zofran Inj) 4 mg Q6H PRN IV PUSH 04/23/17 19:15 04/26/17 03:39 (Albuterol Neb) 2.5 mg Q2HR NEB PRN INH 04/23/17 19:15 (Heparin Inj) 5,000 units Q12H SQ 04/23/17 19:30 04/26/17 17:47 Miscellaneous Information 1 Q361D XX 04/23/17 19:15 04/23/17 19:15 (Chlorhexidine 2% Cloth) 3 pack Taper DAILY@04 TOP 04/24/17 04:00 04/20/18 03:59 04/27/17 04:00 (Chlorhexidine 2% Cloth) 3 pack UNSCH PRN TOP 04/23/17 19:15 (Shaneka-Colace) 1 tab BID PO 04/23/17 21:00 04/26/17 19:43 (Milk Of Magnesia Liq) 30 ml Q12H PRN PO 04/23/17 19:15 (Senokot) 17.2 mg Q12H PRN PO 04/23/17 19:15 (Dulcolax Supp) 10 mg DAILY PRN RECTAL 04/23/17 19:15 (Lactulose Liq) 30 ml DAILY PRN PO 04/23/17 19:15 04/27/17 06:53 (Percocet 5-325 Mg) 2 tab Q4H PRN PO 04/23/17 19:15 04/27/17 07:31 (Xanax) 0.5 mg Q8H PRN PO 04/23/17 19:15 04/27/17 00:35 (Rocaltrol) 0.5 mcg TID PO 04/24/17 09:00 04/26/17 17:44 (Coreg) 25 mg Q12HR PO 04/23/17 21:00 04/26/17 19:43 (Sensipar) 60 mg DAILY PO 04/24/17 09:00 04/26/17 08:43 (Catapres) 0.2 mg Q8HR PO 04/23/17 22:00 04/27/17 07:27 (Prinivil) 20 mg Q12HR PO 04/23/17 21:00 04/26/17 19:42 (Apresoline) 50 mg Q8HR PO 04/23/17 22:00 04/27/17 07:27 (Trandate Inj) 10 mg Q4H PRN IV PUSH 04/23/17 19:30 04/25/17 21:22 (Apresoline Inj) 10 mg Q4H PRN IV PUSH 04/23/17 19:15 04/23/17 20:06 (Heparin Inj) 1,000 units WITH DIALYSIS PRN XX 04/23/17 19:30 (NS Flush) 10 ml UNSCH PRN IV FLUSH 04/23/17 19:30 (Vancomycin Inj) 1,000 mg Q7D IP 04/23/17 19:30 04/23/17 19:30 (Ziagen) 600 mg DAILY PO 04/24/17 09:00 04/26/17 08:41 (Epivir) 300 mg DAILY PO 04/24/17 09:00 04/26/17 08:42 (Procardia Xl) 60 mg Q12HR PO 04/23/17 22:00 04/26/17 19:42 (Catapres-Tts 0.3 Mg Patch.7d) 1 patch Q7D T-DERMAL 04/24/17 16:00 04/24/17 16:00 Miscellaneous Information 1 Q7D T-DERMAL 05/01/17 16:00 (Vasotec Inj) 2.5 mg Q6H PRN IV PUSH 04/24/17 17:00 04/24/17 19:08 A/P Assessment and Plan 1. Peritonitis/Small bowel obstruction patient started on Intraperitoneal antibiotics, Nephrology specialist following Doctor Rosa Elena has thickening of the Colonic wall through the majority of its course which may be reactive versus infectious/inflammatory 04/24: as per Nephrology specialist to continue on Vancomycin and Ceftazidime intraperitoneally. CT ordered. asked for Surgery evaluation. Infectious Disease specialist following, with Diagnosis of Peritoneal Dialysis catheter related peritonitis, prior history of four episodes of peritonitis with one episode of peritoneal catheter removal, Improving clinically. 2. Hypertensive Emergency on Catapres patch by Nephrology and Labetalol PRN, patient allergic to Hydralazine. Improving on Labetalol. 3. Hypertension to continue Coreg 25 mg BID, Clonidine 0.2 mg TID, Lisinopril 20 mg PO twice a day, Nifedipine ER 60 mg BID, Hydralazine 50 mg TID 4. ESRD on Peritoneal dialysis/Acute Hyperkalemia, He received D50, insulin 5 units, Kayexalate 45 g p.o., sodium bicarb 150 mEq at outside hospital. Nephrology following. 5. HIV/Peritonitis with indwelling peritoneal dialysis catheter undetectable viral load approximately six months ago, follow blood and peritoneal fluid cultures intraperitoneal antibiotics, continue Triumeq tablets 1 tabl by mouth daily. ID following. 6. Anxiety disorder on Xanax 7. HIV nephropathy, recommended to continue HAART therapy, 8. Ileus improving today passing gas, CT consistent with Ileus. PROPH: SCDs for DVT prophylaxis. Heparin 5000 units subcu every 12 hours for DVT prophylaxis. Famotidine 20 mg p.o. twice daily for stress ulcer prophylaxis Discharge Planning Not yet cleared for discharge. Alexey Black MD Apr 27, 2017 08:13
[2017-04-27] MEDS: ABACAVIR SULFATE 300 MG TAB PO SCH (09:00)
[2017-04-27] MEDS: SODIUM CHLORIDE 0.9% FLUSH 10 ML FLUSH IV FLUSH SCH ×2 (09:00→19:53)
[2017-04-27] MEDS: FAMOTIDINE 20 MG TAB PO SCH ×2 (09:00→19:53)
[2017-04-27] MEDS: CALCITRIOL 0.25 MCG CAP PO SCH ×3 (09:30→18:00)
[2017-04-27] MEDS: DOLUTEGRAVIR SODIUM 50 MG TAB PO SCH (09:31)
[2017-04-27] MEDS: LISINOPRIL 20 MG TAB PO SCH ×2 (09:31→19:53)
[2017-04-27] MEDS: CARVEDILOL 12.5 MG TAB PO SCH ×2 (09:31→19:53)
[2017-04-27] MEDS: NIFEdipine 60 MG SUSTAINED RELEASE TAB PO SCH ×2 (09:31→19:53)
[2017-04-27] MEDS: DOCUSATE SODIUM 50 MG/SENNA 8.6 MG TAB PO SCH ×2 (09:32→19:53)
[2017-04-27] MEDS: CINACALCET HYDROCHLORIDE 30 MG TAB PO SCH (09:32)
--- NOTE | 2017-04-27 12:59 | HHI.NPPN ---
Subjective History of Present Illness Hx of ESRD on PD peritonitis Additional Remarks Patient continues on PD Wants to advance diet Objective Data Data Vital Signs Date Time Temp Pulse Resp B/P (MAP) Pulse Ox O2 Delivery O2 Flow Rate FiO2 04/27/17 12:00 71 04/27/17 12:00 97.6 74 18 99/68 (78) 99 04/27/17 10:00 68 04/27/17 08:00 68 04/27/17 08:00 98.6 76 18 122/58 (79) 99 04/27/17 07:23 68 04/27/17 04:00 68 04/27/17 04:00 98.6 68 37 104/59 (74) 99 04/27/17 02:00 73 04/27/17 00:00 80 04/27/17 00:00 98.2 80 15 110/69 (83) 98 04/26/17 22:00 82 04/26/17 20:00 82 04/26/17 20:00 98.3 82 15 139/92 (108) 100 04/26/17 18:00 78 04/26/17 16:00 97.8 76 75 135/85 (102) 99 04/26/17 16:00 76 04/26/17 15:00 11 04/26/17 14:00 78 -: 04/25/17 0330 04/25/17 0330 Physical Exam General Appearance: Well Developed, Well Nourished Neck Neck Exam: Neck Supple Pulmonary Resp Exam: Clear Bilaterally Cardiology CV Exam: Regular, Normal Sinus Rhythm Gastrointestinal/Abdomen GI Exam: Soft, Non-Tender, Bowel Sounds Present Extremeties Extremities Exam: No Edema Assessment/Plan Problem List: (1) ESRD (end stage renal disease) on dialysis ICD Codes: N18.6 - End stage renal disease; Z99.2 - Dependence on renal dialysis Plan: Peritoneal dialysis ordered with vancomycin 1 g PD fluid with staph epi Patient changed the setting of machine, non compliant continue PD. 3.4 L UF with PD (2) Hypertensive crisis ICD Codes: I16.9 - Hypertensive crisis, unspecified Plan: BP stable (3) Peritonitis ICD Codes: K65.9 - Peritonitis, unspecified Plan: Staph epi - on vancomycin with PD Passing gas, still no bowel movements Feeling better today - will advance diet. Kurtis Canales MD Apr 27, 2017 12:59
[2017-04-27] MEDS: ONDANSETRON HCL 4 MG/2 ML VIAL IV PUSH PRN (18:22)
[2017-04-28] VITALS (12 sets, daily range): BP systolic 112–125; BP diastolic 66–80; PULSE 69–81; RESP 11–52; TEMP 97.6–98.3; O2SAT 100
[2017-04-28] MEDS: CHLORHEXIDINE GLUCONATE 2 % 1 PACK (2 CLOTHS) TOP SCH (04:00)
[2017-04-28] MEDS: ALPRAZolam 0.5 MG TAB PO PRN ×2 (04:50→23:16)
[2017-04-28] MEDS: cloNIDine HCL 0.2 MG TAB PO SCH ×3 (04:50→23:13)
[2017-04-28] MEDS: hydrALAZINE HCL 50 MG TAB PO SCH ×3 (04:50→23:14)
[2017-04-28] MEDS: LACTULOSE SYRUP 20 GM/30 ML CUP PO PRN (04:50)
[2017-04-28 06:07] LABS: AUTOMATED NEUTROPHIL # 3.2 TH/MM3 (1.8-7.7); BASOPHIL # 0.1 TH/MM3 (0-0.2); BASOPHIL % 1.1 % (0.0-2.0); EOSINOPHIL # 0.2 TH/MM3 (0-0.4); HEMATOCRIT 27.8 % (39.0-51.0); HEMOGLOBIN 9.3 GM/DL (13.0-17.0); LYMPH % 21.7 % (9.0-44.0); LYMPHOCYTE # 1.2 TH/MM3 (1.0-4.8); MEAN CELL VOLUME 94.6 FL (80.0-100.0); MEAN CORPUSCULAR HEMOGLOBIN 31.7 PG (27.0-34.0); MEAN CORPUSCULAR HGB CONC 33.5 % (32.0-36.0); MEAN PLATELET VOLUME 10.3 FL (7.0-11.0); MONO % 15.5 % (0.0-8.0); MONOCYTE # 0.9 TH/MM3 (0-0.9); NEUT % 58.7 % (16.0-70.0); PLATELET COUNT 216 TH/MM3 (150-450); RED BLOOD COUNT 2.94 MIL/MM3 (4.50-5.90); RED CELL DISTRIBUTION WIDTH 15.8 % (11.6-17.2); WHITE BLOOD COUNT 5.5 TH/MM3 (4.0-11.0)
[2017-04-28 06:19] LABS: BICARBONATE 24.4 MEQ/L (21.0-32.0); CALCIUM 7.1 MG/DL (8.5-10.1)
[2017-04-28 06:27] LABS: CREATININE 20.99 MG/DL (0.60-1.30)
[2017-04-28 06:42] LABS: CALCIUM-PROTEIN CORRECTED 7.7 MG/DL (8.5-10.1)
[2017-04-28] MEDS: HEPARIN SODIUM - SQ 10,000 UNITS/ML VIAL SQ SCH ×2 (07:30→19:52)
[2017-04-28] MEDS: ABACAVIR SULFATE 300 MG TAB PO SCH (08:58)
[2017-04-28] MEDS: NIFEdipine 60 MG SUSTAINED RELEASE TAB PO SCH ×2 (08:58→19:53)
[2017-04-28] MEDS: CINACALCET HYDROCHLORIDE 30 MG TAB PO SCH (08:58)
[2017-04-28] MEDS: DOCUSATE SODIUM 50 MG/SENNA 8.6 MG TAB PO SCH ×2 (08:59→19:53)
[2017-04-28] MEDS: LISINOPRIL 20 MG TAB PO SCH ×2 (08:59→19:53)
[2017-04-28] MEDS: CARVEDILOL 12.5 MG TAB PO SCH ×2 (08:59→19:52)
[2017-04-28] MEDS: DOLUTEGRAVIR SODIUM 50 MG TAB PO SCH (08:59)
[2017-04-28] MEDS: FAMOTIDINE 20 MG TAB PO SCH ×2 (08:59→19:56)
[2017-04-28] MEDS: oxyCODONE/ACETAMINOPHEN 5 MG/325 MG TAB PO PRN ×2 (09:10→19:54)
--- NOTE | 2017-04-28 11:53 | HHI.NPPN ---
Subjective History of Present Illness Hx of ESRD on PD peritonitis Additional Remarks PD drain leaking - did not do PD last night. Objective Data Data 04/28/17 04/29/17 19:00 07:00 Output Total 0 ml Balance 0 ml Hemodialysis 0 ml Vital Signs Date Time Temp Pulse Resp B/P (MAP) Pulse Ox O2 Delivery O2 Flow Rate FiO2 04/28/17 10:00 74 04/28/17 08:00 97.6 71 12 112/66 (81) 04/28/17 08:00 74 04/28/17 06:00 74 04/28/17 04:00 75 04/28/17 04:00 97.6 75 12 112/66 (81) 04/28/17 02:00 81 04/28/17 00:00 97.6 80 11 117/71 (86) 100 04/28/17 00:00 80 04/27/17 22:00 81 04/27/17 20:00 76 04/27/17 20:00 97.6 76 10 134/88 (103) 04/27/17 16:00 98.0 73 18 109/78 (88) 99 04/27/17 16:00 72 04/27/17 14:00 71 04/27/17 12:00 71 04/27/17 12:00 97.6 74 18 99/68 (78) 99 -: 04/28/17 0512 04/28/17 0512 Physical Exam General Appearance: Well Developed, Well Nourished Neck Neck Exam: Neck Supple Pulmonary Resp Exam: Clear Bilaterally Cardiology CV Exam: Regular, Normal Sinus Rhythm Gastrointestinal/Abdomen GI Exam: Soft, Non-Tender, Bowel Sounds Present Extremeties Extremities Exam: No Edema Assessment/Plan Problem List: (1) ESRD (end stage renal disease) on dialysis ICD Codes: N18.6 - End stage renal disease; Z99.2 - Dependence on renal dialysis Plan: Peritoneal dialysis ordered with vancomycin 1 g / week (given 04/23) PD fluid with staph epi Apparent leak at PD catheter drain last night after 1 cycle. Will hold PD this evening and make NPO for evaluation and replacement of PD catheter drain with IR tomorrow. Volume status and electrolytes stable, continue with PD tomorrow after drain repaired 3.4 L UF with PD Saturday night. (2) Hypertensive crisis ICD Codes: I16.9 - Hypertensive crisis, unspecified Plan: BP stable (3) Peritonitis ICD Codes: K65.9 - Peritonitis, unspecified Plan: Staph epi - on vancomycin with PD next dose on 04/30 Passing gas, had bowel movement today. Feeling better today and tolerating PO diet. Kurtis Canales MD Apr 28, 2017 11:53
--- NOTE | 2017-04-28 12:33 | HHI.PR ---
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 this morning with concerns for peritonitis. He states that on 04/21/17 he developed abdominal discomfort which he recognized as being similar to prior episodes of peritonitis. He had chills. He did not check his temperature. On 04/21 he noted that his peritoneal fluid appeared cloudy. He has had very little appetite and very little to eat since 04/20. He was nauseous and vomited once today, nonbloody nonbilious. Last bowel movement was 04/20. He has had 4 prior episodes of peritonitis, the most recent was 4 years ago. Catheter has been removed and replaced on one occasion in 2013. At the outside hospital he was afebrile with heart rate in the 80s and hypertensive with systolic in the 180s. Labs were drawn at 9:30 AM on 04/23 white blood cell count was 6.5, hemoglobin 11, platelets 209. Sodium was 138, potassium 6, chloride 94, bicarb 23, BUN 84 , creatinine 21, glucose 105, calcium 8.7, LFTs normal, albumin 3.9. Coags were all within normal limits. He received D50, insulin 5 units, Kayexalate 45 g p.o., sodium bicarb 150 mEq at outside hospital. Blood cultures and peritoneal cultures were sent. He received Zosyn 3.375 g IV and vancomycin 500 mg IV. He also received Zofran and a total of 2.5 mg of Dilaudid and 4 mg of morphine. Reportedly he had a repeat potassium that was 5.0. CT abdomen and pelvis at outside hospital with ports focally dilated air loops of small bowel which may represent ileus. SBO cannot be excluded. Thickening of the colonic wall through the majority of its course which may be reactive versus infectious/ inflammatory. Bilateral pleural effusions. [facility] discussed with patient's support analyst but there was there are no beds in the hospital so he has been transferred to [facility]. Hospitalist Notes: 04/24: as per Nephrology specialist to continue on Vancomycin and Ceftazidime. CT ordered. asked for Surgery evaluation. for Hypertensive Emergency recommended Catapres Patch. Infectious Disease specialist following, with Diagnosis of Peritoneal Dialysis catheter related peritonitis, prior history of four episodes of peritonitis with one episode of peritoneal catheter removal, HIV nephropathy, recommended to continue HAART therapy , continue Ceftazidime intraperitoneally, Vancomycin intraperitoneally, seen in his bedroom and discussed with nurse no new issues, awaiting for Surgical consult 04/25: Seen in his bedroom in the presence of his Mother, improving clinically, encourage ambulation. 04/26: new CT abdomen consistent with Ileus, is passing gas, encourage ambulation. 04/27: Stable seen in his bedroom, but is passing gas, advanced diet. 04/28: Seen in his bedroom, he states his Peritoneal Catheter is leaking, also he had a large bowel movement, no nausea, vomit or diarrhea. Objective Vital Signs Date Time Temp Pulse Resp B/P (MAP) Pulse Ox O2 Delivery O2 Flow Rate FiO2 04/28/17 10:00 74 04/28/17 08:00 97.6 71 12 112/66 (81) 04/28/17 08:00 74 04/28/17 06:00 74 04/28/17 04:00 75 04/28/17 04:00 97.6 75 12 112/66 (81) 04/28/17 02:00 81 04/28/17 00:00 97.6 80 11 117/71 (86) 100 04/28/17 00:00 80 04/27/17 22:00 81 04/27/17 20:00 76 04/27/17 20:00 97.6 76 10 134/88 (103) 04/27/17 16:00 98.0 73 18 109/78 (88) 99 04/27/17 16:00 72 04/27/17 14:00 71 I/O 04/27/17 04/27/17 04/27/17 04/28/17 04/28/17 04/28/17 07:00 15:00 23:00 07:00 15:00 23:00 Intake Total 280 ml 120 ml Output Total 0 ml 0 ml 0 ml Balance 280 ml 120 ml 0 ml Intake Oral 280 ml 120 ml Output Urine Total 0 ml 0 ml Stool Total 0 ml 0 ml Hemodialysis 0 ml # Voids 0 # Bowel Movements 0 Result Diagram: 04/28/17 0512 04/28/17 0512 Imaging Last Impressions Abdomen/Pelvis CT 04/24/17 0000 Signed Impressions: Service Date/Time: April 12:22 - CONCLUSION: 1. Large volume ascites. 2. Polycystic kidney disease. 3. Multiple dilated proximal small bowel loops, likely ileus. Dayton Johnson MD Abdomen X-Ray 04/23/17 0000 Signed Impressions: Service Date/Time: Sunday, April 23, 2017 20:13 - CONCLUSION: Small bowel obstruction. Anup Mcnamara MD Procedures None Other Results Laboratory Tests Test 04/23/17 17:51 04/23/17 19:13 04/23/17 20:34 04/28/17 05:12 Nasal Screen MRSA (PCR) MRSA DETECTED Blood Urea Nitrogen 84 MG/DL 66 MG/DL Creatinine 23.07 MG/DL 20.99 MG/DL Random Glucose 88 MG/DL 89 MG/DL Calcium Level 8.4 MG/DL 7.1 MG/DL Phosphorus Level 8.0 MG/DL Magnesium Level 2.1 MG/DL Sodium Level 137 MEQ/L 131 MEQ/L Potassium Level 5.5 MEQ/L 4.7 MEQ/L Chloride Level 98 MEQ/L 90 MEQ/L Carbon Dioxide Level 25.5 MEQ/L 24.4 MEQ/L Peritoneal Fluid WBC 41 /MM3 Peritoneal Fluid RBC 20 /MM3 Peritoneal Fluid Neutrophils 20 % Peritoneal Fluid Lymphocytes 71 % Peritoneal Fluid Monocytes 3 % Peritoneal Fluid Eosinophils 3 % Peritoneal Fluid Histiocytes 2 % Peritoneal Fluid Mesothelial Cells 1 % White Blood Count 5.5 TH/MM3 Red Blood Count 2.94 MIL/MM3 Hemoglobin 9.3 GM/DL Hematocrit 27.8 % Mean Corpuscular Volume 94.6 FL Mean Corpuscular Hemoglobin 31.7 PG Mean Corpuscular Hemoglobin Concent 33.5 % Red Cell Distribution Width 15.8 % Platelet Count 216 TH/MM3 Mean Platelet Volume 10.3 FL Neutrophils (%) (Auto) 58.7 % Lymphocytes (%) (Auto) 21.7 % Monocytes (%) (Auto) 15.5 % Eosinophils (%) (Auto) 3.0 % Basophils (%) (Auto) 1.1 % Neutrophils # (Auto) 3.2 TH/MM3 Lymphocytes # (Auto) 1.2 TH/MM3 Monocytes # (Auto) 0.9 TH/MM3 Eosinophils # (Auto) 0.2 TH/MM3 Basophils # (Auto) 0.1 TH/MM3 CBC Comment DIFF FINAL Differential Comment Total Protein 6.0 GM/DL Anion Gap 17 MEQ/L Estimat Glomerular Filtration Rate 3 ML/MIN Protein Corrected Calcium 7.7 MG/DL Objective Remarks GENERAL: Well-nourished, well-developed male patient who is sitting up in bed, alert and interactive, nontoxic-appearing SKIN: Warm and dry. No rash. Multiple tattoos on neck and chest HEAD: Atraumatic. Normocephalic. EYES: Pupils equal and round, 2 mm and reactive.. No scleral icterus. No injection or drainage. ENT: No nasal bleeding or discharge. Mucous membranes pink and moist. No pharyngeal erythema. NECK: Trachea midline. No JVD. CARDIOVASCULAR: Regular rate and rhythm, sinus rhythm on monitor with rate in the 80s. No murmurs rubs or gallops appreciated. RESPIRATORY: Breathing comfortably on room air with no accessory muscle use. Clear to auscultation. Breath sounds equal bilaterally. GASTROINTESTINAL: Abdomen soft, peritoneal fluid wave present, tender to palpation with voluntary guarding, no rebound. Bowel sounds hypoactive. Dialysis catheter in place with serous crusting around catheter, no purulent drainage. MUSCULOSKELETAL: Extremities without clubbing, cyanosis, or edema. No obvious deformities. NEUROLOGICAL: Awake and alert. No obvious cranial nerve deficits. Motor grossly within normal limits. Normal speech. Oriented x4. Medications and IVs Current Medications Medications (Trade) Dose Ordered Sig/Neftaly Route Start Time Stop Time Status Last Admin (NS Flush) 2 ml UNSCH PRN IV FLUSH 04/23/17 19:15 (NS Flush) 2 ml BID IV FLUSH 04/23/17 21:00 04/27/17 19:53 (Percocet 5-325 Mg) 1 tab Q4H PRN PO 04/23/17 19:15 04/24/17 10:07 (Pepcid) 20 mg Q12HR PO 04/23/17 21:00 04/28/17 08:59 (Zofran Inj) 4 mg Q6H PRN IV PUSH 04/23/17 19:15 04/27/17 18:22 (Albuterol Neb) 2.5 mg Q2HR NEB PRN INH 04/23/17 19:15 (Heparin Inj) 5,000 units Q12H SQ 04/23/17 19:30 04/28/17 07:30 Miscellaneous Information 1 Q361D XX 04/23/17 19:15 04/23/17 19:15 (Chlorhexidine 2% Cloth) 3 pack Taper DAILY@04 TOP 04/24/17 04:00 04/20/18 03:59 04/28/17 04:00 (Chlorhexidine 2% Cloth) 3 pack UNSCH PRN TOP 04/23/17 19:15 (Shaneka-Colace) 1 tab BID PO 04/23/17 21:00 04/28/17 08:59 (Milk Of Magnesia Liq) 30 ml Q12H PRN PO 04/23/17 19:15 (Senokot) 17.2 mg Q12H PRN PO 04/23/17 19:15 04/28/17 04:50 (Dulcolax Supp) 10 mg DAILY PRN RECTAL 04/23/17 19:15 (Lactulose Liq) 30 ml DAILY PRN PO 04/23/17 19:15 04/28/17 04:50 (Percocet 5-325 Mg) 2 tab Q4H PRN PO 04/23/17 19:15 04/28/17 09:10 (Xanax) 0.5 mg Q8H PRN PO 04/23/17 19:15 04/28/17 04:50 (Rocaltrol) 0.5 mcg TID PO 04/24/17 09:00 04/27/17 18:00 (Coreg) 25 mg Q12HR PO 04/23/17 21:00 04/28/17 08:59 (Sensipar) 60 mg DAILY PO 04/24/17 09:00 04/28/17 08:58 (Catapres) 0.2 mg Q8HR PO 04/23/17 22:00 04/28/17 04:50 (Prinivil) 20 mg Q12HR PO 04/23/17 21:00 04/28/17 08:59 (Apresoline) 50 mg Q8HR PO 04/23/17 22:00 04/28/17 04:50 (Trandate Inj) 10 mg Q4H PRN IV PUSH 04/23/17 19:30 04/25/17 21:22 (Apresoline Inj) 10 mg Q4H PRN IV PUSH 04/23/17 19:15 04/23/17 20:06 (Heparin Inj) 1,000 units WITH DIALYSIS PRN XX 04/23/17 19:30 (NS Flush) 10 ml UNSCH PRN IV FLUSH 04/23/17 19:30 (Vancomycin Inj) 1,000 mg Q7D IP 04/23/17 19:30 04/23/17 19:30 (Ziagen) 600 mg DAILY PO 04/24/17 09:00 04/28/17 08:58 (Epivir) 300 mg DAILY PO 04/24/17 09:00 04/28/17 08:58 (Procardia Xl) 60 mg Q12HR PO 04/23/17 22:00 04/28/17 08:58 (Catapres-Tts 0.3 Mg Patch.7d) 1 patch Q7D T-DERMAL 04/24/17 16:00 04/24/17 16:00 Miscellaneous Information 1 Q7D T-DERMAL 05/01/17 16:00 (Vasotec Inj) 2.5 mg Q6H PRN IV PUSH 04/24/17 17:00 04/24/17 19:08 A/P Assessment and Plan 1. Peritonitis patient started on Intraperitoneal antibiotics, Nephrology specialist following Doctor Rosa Elena has thickening of the Colonic wall through the majority of its course which may be reactive versus infectious/inflammatory Was on Vancomycin and Ceftazidime intraperitoneally. ID following, a this time on intraperitoneal Vancomycin, Improving condition, his peritoneal catheter is leaking will leave this to Nephrology specialist. 2. Ileus Improved. had a large Bowel movement 3. Hypertension to continue Coreg 25 mg BID, Clonidine 0.2 mg TID, Lisinopril 20 mg PO twice a day, Nifedipine ER 60 mg BID, Hydralazine 50 mg TID Improved with Labetalol IV. 4. ESRD on Peritoneal dialysis/Acute Hyperkalemia, He received D50, insulin 5 units, Kayexalate 45 g p.o., sodium bicarb 150 mEq at outside hospital. Nephrology following. 5. HIV/Peritonitis with indwelling peritoneal dialysis catheter undetectable viral load approximately six months ago, follow blood and peritoneal fluid cultures intraperitoneal antibiotics, continue Triumeq tablets 1 tabl by mouth daily. ID following. 6. Anxiety disorder on Xanax 7. HIV nephropathy, recommended to continue HAART therapy, 8. Hypertensive Emergency Improved. PROPH: SCDs for DVT prophylaxis. Heparin 5000 units subcu every 12 hours for DVT prophylaxis. Famotidine 20 mg p.o. twice daily for stress ulcer prophylaxis Discharge Planning Once cleared by specialists. Alexey Black MD Apr 28, 2017 12:33
[2017-04-28] MEDS: CALCITRIOL 0.25 MCG CAP PO SCH ×3 (12:59→18:00)
[2017-04-28] MEDS: SODIUM CHLORIDE 0.9% FLUSH 10 ML FLUSH IV FLUSH SCH ×2 (19:52→23:14)
[2017-04-29] VITALS (11 sets, daily range): BP systolic 102–138; BP diastolic 60–81; PULSE 58–76; RESP 13–70; TEMP 96.4–98; O2SAT 97–100
[2017-04-29] MEDS: CHLORHEXIDINE GLUCONATE 2 % 1 PACK (2 CLOTHS) TOP SCH (04:00)
[2017-04-29] MEDS: cloNIDine HCL 0.2 MG TAB PO SCH ×3 (05:39→23:21)
[2017-04-29] MEDS: hydrALAZINE HCL 50 MG TAB PO SCH ×3 (05:39→23:21)
[2017-04-29 06:36] LABS: AUTOMATED NEUTROPHIL # 2.7 TH/MM3 (1.8-7.7); BASOPHIL # 0.1 TH/MM3 (0-0.2); BASOPHIL % 1.1 % (0.0-2.0); EOSINOPHIL # 0.1 TH/MM3 (0-0.4); EOSINOPHIL % 2.6 % (0.0-4.0); HEMATOCRIT 26.7 % (39.0-51.0); LYMPH % 24.2 % (9.0-44.0); LYMPHOCYTE # 1.2 TH/MM3 (1.0-4.8); MEAN CORPUSCULAR HEMOGLOBIN 31.8 PG (27.0-34.0); MEAN CORPUSCULAR HGB CONC 33.8 % (32.0-36.0); MEAN PLATELET VOLUME 9.8 FL (7.0-11.0); MONO % 16.6 % (0.0-8.0); MONOCYTE # 0.8 TH/MM3 (0-0.9); NEUT % 55.5 % (16.0-70.0); PLATELET COUNT 208 TH/MM3 (150-450); RED BLOOD COUNT 2.84 MIL/MM3 (4.50-5.90); RED CELL DISTRIBUTION WIDTH 15.6 % (11.6-17.2); WHITE BLOOD COUNT 4.9 TH/MM3 (4.0-11.0)
[2017-04-29] MEDS: ALPRAZolam 0.5 MG TAB PO PRN ×2 (06:47→20:20)
[2017-04-29 07:06] LABS: BICARBONATE 23.9 MEQ/L (21.0-32.0); CALCIUM 6.7 MG/DL (8.5-10.1)
[2017-04-29] MEDS: HEPARIN SODIUM - SQ 10,000 UNITS/ML VIAL SQ SCH ×2 (07:30→20:14)
[2017-04-29 07:31] LABS: CALCIUM-PROTEIN CORRECTED 7.2 MG/DL (8.5-10.1); CREATININE 23.86 MG/DL (0.60-1.30)
[2017-04-29] MEDS: FAMOTIDINE 20 MG TAB PO SCH ×2 (08:27→20:15)
[2017-04-29] MEDS: DOLUTEGRAVIR SODIUM 50 MG TAB PO SCH (08:28)
[2017-04-29] MEDS: CINACALCET HYDROCHLORIDE 30 MG TAB PO SCH (08:28)
[2017-04-29] MEDS: DOCUSATE SODIUM 50 MG/SENNA 8.6 MG TAB PO SCH ×2 (08:28→20:15)
[2017-04-29] MEDS: LISINOPRIL 20 MG TAB PO SCH ×2 (08:28→20:15)
[2017-04-29] MEDS: NIFEdipine 60 MG SUSTAINED RELEASE TAB PO SCH ×2 (08:28→20:15)
[2017-04-29] MEDS: CALCITRIOL 0.25 MCG CAP PO SCH ×3 (08:29→17:19)
[2017-04-29] MEDS: ABACAVIR SULFATE 300 MG TAB PO SCH (08:31)
[2017-04-29] MEDS: SODIUM CHLORIDE 0.9% FLUSH 10 ML FLUSH IV FLUSH SCH ×2 (08:31→20:14)
[2017-04-29] MEDS: oxyCODONE/ACETAMINOPHEN 5 MG/325 MG TAB PO PRN ×4 (09:08→23:22)
--- NOTE | 2017-04-29 10:53 | HHI.IDPN ---
Subjective Subjective Remarks Mr. Christian is a 36-year-old male with past medical history significant for end-stage renal disease on peritoneal dialysis since 2009. Patient's guardian ad litem is Dr. Ajay Mckenzie in [place]. Patient reports having a renal biopsy and sure if this is HIV related end-stage renal disease or not. Patient reports that he has had at least one prior peritoneal dialysis catheter related peritonitis episode in the past needing removal of the PD catheter. Patient's past medical history is also significant for HIV diagnosed in 2009. Patient is not aware of his CD4 count but reports an undetectable viral load 6 months ago. In addition to this he also reports chronic constipation. Patient follows with an infectious disease doctor in [place] but has recently moved to [place] and is in need of a infectious disease doctor in that area. Patient denies any prior opportunistic infections such as PCP, fungal etc. With this background patient presented to the hospital in [facility] with complaints of abdominal discomfort which she reported appeared to be similar to prior episodes of peritonitis. He also reported chills but denied any fevers. He reports subjective fevers. On April 21 he reports that her paternal dialysis session he noted the fluid was cloudy. He reports decreased appetite since April 20. Reports nausea and vomiting at least once a day itches nonbloody and nonbilious. His last bowel movement was April 20. Review of Dr. Dyson notes reveals patient has had at least 4 prior episodes of peritonitis the most recent one was 4 years prior to this admission. While at [facility] patient was found to be afebrile with heart rate in the 80s and hypertensive with systolic blood pressure in the 180s. Labs drawn at that hospital indicated WBC of 6.5, platelets 205, creatinine 21. Patient was noted to have hyperkalemia with a potassium of 6. He received D50 , insulin 5 units in Kayexalate at the outside hospital. Blood cultures and peritoneal fluid cultures were collected on April 23, 2017 and when I called microbiology the reported that these cultures were no growth to date. His CT abdomen pelvis done at [facility] reportedly showed thickening of the colonic wall associated with dilated air loops of small bowel. Bilateral pleural effusions as well as fluid in the abdomen. Again the disc that arrived to the patient was difficult to open and side haven't been able to review these images personally. I did review medical records from [facility] and called microbiology department and blood cultures as well as pericardial fluid cultures are no growth today. Infectious disease is consulted for evaluation and management of peritoneal dialysis catheter related peritonitis. Notes reviewed No fevers No rash States he has leaking/a hole in his PD tubing Has not had PD ?2 nights States seem to have more abdominal pain No vomiting CT A/P noted PD fluid 41 WBC, C/S Staph epi Last IP Vanco give 04/23 Antibiotics Vanco IP Current Medications Medications (Trade) Dose Ordered Sig/Neftaly Route Start Time Stop Time Status Last Admin (NS Flush) 2 ml UNSCH PRN IV FLUSH 04/23/17 19:15 (NS Flush) 2 ml BID IV FLUSH 04/23/17 21:00 04/29/17 08:31 (Percocet 5-325 Mg) 1 tab Q4H PRN PO 04/23/17 19:15 04/29/17 09:08 (Pepcid) 20 mg Q12HR PO 04/23/17 21:00 04/29/17 08:27 (Zofran Inj) 4 mg Q6H PRN IV PUSH 04/23/17 19:15 04/27/17 18:22 (Albuterol Neb) 2.5 mg Q2HR NEB PRN INH 04/23/17 19:15 (Heparin Inj) 5,000 units Q12H SQ 04/23/17 19:30 04/28/17 19:52 Miscellaneous Information 1 Q361D XX 04/23/17 19:15 04/23/17 19:15 (Chlorhexidine 2% Cloth) Taper DAILY@04 TOP 04/24/17 04:00 04/20/18 03:59 04/29/17 04:00 (Chlorhexidine 2% Cloth) 3 pack UNSCH PRN TOP 04/23/17 19:15 (Shaneka-Colace) 1 tab BID PO 04/23/17 21:00 04/29/17 08:28 (Milk Of Magnesia Liq) 30 ml Q12H PRN PO 04/23/17 19:15 (Senokot) 17.2 mg Q12H PRN PO 04/23/17 19:15 04/28/17 04:50 (Dulcolax Supp) 10 mg DAILY PRN RECTAL 04/23/17 19:15 (Lactulose Liq) 30 ml DAILY PRN PO 04/23/17 19:15 04/28/17 04:50 (Percocet 5-325 Mg) 2 tab Q4H PRN PO 04/23/17 19:15 04/28/17 19:54 (Xanax) 0.5 mg Q8H PRN PO 04/23/17 19:15 04/29/17 06:47 (Rocaltrol) 0.5 mcg TID PO 04/24/17 09:00 04/29/17 08:29 (Coreg) 25 mg Q12HR PO 04/23/17 21:00 04/28/17 19:52 (Sensipar) 60 mg DAILY PO 04/24/17 09:00 04/29/17 08:28 (Catapres) 0.2 mg Q8HR PO 04/23/17 22:00 04/29/17 05:39 (Prinivil) 20 mg Q12HR PO 04/23/17 21:00 04/29/17 08:28 (Apresoline) 50 mg Q8HR PO 04/23/17 22:00 04/29/17 05:39 (Trandate Inj) 10 mg Q4H PRN IV PUSH 04/23/17 19:30 04/25/17 21:22 (Apresoline Inj) 10 mg Q4H PRN IV PUSH 04/23/17 19:15 04/23/17 20:06 (Heparin Inj) 1,000 units WITH DIALYSIS PRN XX 04/23/17 19:30 (NS Flush) 10 ml UNSCH PRN IV FLUSH 04/23/17 19:30 (Vancomycin Inj) 1,000 mg Q7D IP 04/23/17 19:30 04/23/17 19:30 (Ziagen) 600 mg DAILY PO 04/24/17 09:00 04/29/17 08:31 (Epivir) 300 mg DAILY PO 04/24/17 09:00 04/29/17 08:29 (Procardia Xl) 60 mg Q12HR PO 04/23/17 22:00 04/29/17 08:28 (Catapres-Tts 0.3 Mg Patch.7d) 1 patch Q7D T-DERMAL 04/24/17 16:00 04/24/17 16:00 Miscellaneous Information 1 Q7D T-DERMAL 05/01/17 16:00 (Vasotec Inj) 2.5 mg Q6H PRN IV PUSH 04/24/17 17:00 04/24/17 19:08 Lines Line sites with no e.o infection Past Medical History Past Medical History ESRD guardian ad litem is Ajay Mckenzie. He states he is anuric. Has had prior renal biopsy. He states he is unclear etiology of renal failure. HIV diagnosed in 2009 he has been under the care of Jose Armando Daly in [place]. He last saw him 6 months ago and reportedly had an undetectable viral load. He recently relocated to [place] and is looking for another ID physician HTN Anxiety He has had 4 prior episodes of peritonitis. Peritoneal catheter was removed and then replaced a month later in 2013. Gastritis per prior EGD 1 year ago Chronic constipation Past Surgical History Renal biopsy in 2009 Tenckhoff catheter placement 2009 PD catheter removal PD catheter replacement in 2013 Inguinal hernia repair EGD and colonoscopy in early 2016 Allergies: Coded Allergies: No Known Allergies (Unverified , 04/23/17) Objective . Vital Signs Date Time Temp Pulse Resp B/P (MAP) Pulse Ox O2 Delivery O2 Flow Rate FiO2 04/29/17 06:00 69 04/29/17 04:00 97.6 68 50 106/60 (75) 97 04/29/17 04:00 68 04/29/17 02:00 68 04/29/17 00:00 69 04/29/17 00:00 97.6 69 65 110/72 (85) 100 04/28/17 22:00 70 04/28/17 20:00 98.3 73 52 125/80 (95) 100 04/28/17 20:00 73 04/28/17 18:00 74 04/28/17 16:00 74 04/28/17 16:00 98.0 69 12 122/68 (86) 04/28/17 14:00 74 04/28/17 12:00 74 04/28/17 12:00 97.6 71 12 118/66 (83) . Laboratory Tests Test 04/28/17 05:12 04/29/17 05:50 White Blood Count 5.5 TH/MM3 4.9 TH/MM3 Red Blood Count 2.94 MIL/MM3 2.84 MIL/MM3 Hemoglobin 9.3 GM/DL 9.0 GM/DL Hematocrit 27.8 % 26.7 % Mean Corpuscular Volume 94.6 FL 94.0 FL Mean Corpuscular Hemoglobin 31.7 PG 31.8 PG Mean Corpuscular Hemoglobin Concent 33.5 % 33.8 % Red Cell Distribution Width 15.8 % 15.6 % Platelet Count 216 TH/MM3 208 TH/MM3 Mean Platelet Volume 10.3 FL 9.8 FL Neutrophils (%) (Auto) 58.7 % 55.5 % Lymphocytes (%) (Auto) 21.7 % 24.2 % Monocytes (%) (Auto) 15.5 % 16.6 % Eosinophils (%) (Auto) 3.0 % 2.6 % Basophils (%) (Auto) 1.1 % 1.1 % Neutrophils # (Auto) 3.2 TH/MM3 2.7 TH/MM3 Lymphocytes # (Auto) 1.2 TH/MM3 1.2 TH/MM3 Monocytes # (Auto) 0.9 TH/MM3 0.8 TH/MM3 Eosinophils # (Auto) 0.2 TH/MM3 0.1 TH/MM3 Basophils # (Auto) 0.1 TH/MM3 0.1 TH/MM3 CBC Comment DIFF FINAL DIFF FINAL Differential Comment Laboratory Tests Test 04/28/17 05:12 04/29/17 05:50 Blood Urea Nitrogen 66 MG/DL 76 MG/DL Creatinine 20.99 MG/DL 23.86 MG/DL Random Glucose 89 MG/DL 85 MG/DL Total Protein 6.0 GM/DL 6.0 GM/DL Calcium Level 7.1 MG/DL 6.7 MG/DL Sodium Level 131 MEQ/L 133 MEQ/L Potassium Level 4.7 MEQ/L 4.9 MEQ/L Chloride Level 90 MEQ/L 92 MEQ/L Carbon Dioxide Level 24.4 MEQ/L 23.9 MEQ/L Anion Gap 17 MEQ/L 17 MEQ/L Estimat Glomerular Filtration Rate 3 ML/MIN 2 ML/MIN Protein Corrected Calcium 7.7 MG/DL 7.2 MG/DL Imaging Last Impressions Abdomen X-Ray 04/23/17 0000 Signed Impressions: Service Date/Time: Sunday, April 23, 2017 20:13 - CONCLUSION: Small bowel obstruction. Anup Mcnamara MD Physical Exam GENERAL: Awake and alert, NAD. SKIN: No rashes, ecchymoses or lesions. Cool and dry. HEAD: Atraumatic. Normocephalic. No temporal or scalp tenderness. EYES: Pupils equal round and reactive. Extraocular motions intact. No scleral icterus. No injection or drainage. ENT: Nose without bleeding, purulent drainage. Moist mucosa, no oral lesions. NECK: Trachea midline. Supple, nontender, no meningeal signs. CARDIOVASCULAR: Systolic murmur noted. RESPIRATORY: Clear to auscultation. Breath sounds equal bilaterally. No wheezes , rales, or rhonchi. GASTROINTESTINAL: Abdomen distended, diffuse tenderness, no guarding. PD cath site ok, no evidence of infection, dry. MUSCULOSKELETAL: Extremities without clubbing, cyanosis, or edema. No calf tenderness. Negative Homans sign bilaterally. NEUROLOGICAL: Awake and alert. Nonfocal exam Psych cooperative IV line sites with no evidence of infection. Assessment & Plan Remarks Peritoneal dialysis catheter related peritonitis Small Bowel Obstruction. Surgery following. End-stage renal disease on PD Prior history of 4 episodes of peritonitis with 1 episode where PD catheter needed removal and change. Patient reports that he has received a letter for being listed on the renal transplant at [facility]. 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 Recommendations: Continue IP Vanco Continue HAART per his infectious disease doctor Will repeat PD fluid analysis when he gets his next PD Arrangements to be made for the leaking in his PD cath Monitor progress Discussed with patient Marya Wise MD Apr 29, 2017 10:53
[2017-04-29] MEDS: CARVEDILOL 12.5 MG TAB PO SCH ×2 (11:12→20:15)
--- NOTE | 2017-04-29 13:07 | HHI.PR ---
Subjective Remarks Patient reports he is feeling okay today. IR is not able to fix the leaking PD catheter. He wants to eat. Afebrile. Still has some abdominal discomfort. Objective Vitals Vital Signs Date Time Temp Pulse Resp B/P (MAP) Pulse Ox O2 Delivery O2 Flow Rate FiO2 04/29/17 08:00 98.0 69 13 102/61 (75) 04/29/17 06:00 69 04/29/17 04:00 97.6 68 50 106/60 (75) 97 04/29/17 04:00 68 04/29/17 02:00 68 04/29/17 00:00 69 04/29/17 00:00 97.6 69 65 110/72 (85) 100 04/28/17 22:00 70 04/28/17 20:00 98.3 73 52 125/80 (95) 100 04/28/17 20:00 73 04/28/17 18:00 74 04/28/17 16:00 74 04/28/17 16:00 98.0 69 12 122/68 (86) 04/28/17 14:00 74 I/O 04/28/17 04/28/17 04/28/17 04/29/17 04/29/17 04/29/17 07:00 15:00 23:00 07:00 15:00 23:00 Intake Total 120 ml 300 ml 300 ml Output Total 0 ml 0 ml 1 ml Balance 120 ml 0 ml 300 ml 299 ml Intake Oral 120 ml 300 ml 300 ml Output Urine Total 0 ml 0 ml Stool Total 0 ml 1 ml Hemodialysis 0 ml # Bowel Movements 1 Result Diagram: 04/29/17 0550 04/29/17 0550 Imaging Last Impressions Abdomen/Pelvis CT 04/24/17 0000 Signed Impressions: Service Date/Time: April 12:22 - CONCLUSION: 1. Large volume ascites. 2. Polycystic kidney disease. 3. Multiple dilated proximal small bowel loops, likely ileus. Dayton Johnson MD Abdomen X-Ray 04/23/17 0000 Signed Impressions: Service Date/Time: Sunday, April 23, 2017 20:13 - CONCLUSION: Small bowel obstruction. Anup Mcnamara MD Objective Remarks GENERAL: This is a well-nourished, well-developed patient, in no apparent distress. CARDIOVASCULAR: Normal rate and regular rhythm without murmurs, gallops, or rubs. RESPIRATORY: Good respiratory efforts. Breath sounds equal and clear to auscultation bilaterally. GASTROINTESTINAL: Abdomen is distended, some tenderness to palpation. Normal active bowel sounds. Hemodialysis catheter in place. Patient taped the tubing. MUSCULOSKELETAL: Extremities without cyanosis, or edema. NEURO: Alert & Oriented x4 to person, place, time, situation. Moves all ext x4 PSYCH: Appropriate mood and affect. A/P Assessment and Plan 1. Peritonitis: patient started on Intraperitoneal antibiotics, Nephrology specialist following Doctor Rosa Elena has thickening of the Colonic wall through the majority of its course which may be reactive versus infectious/inflammatory Was on Vancomycin and Ceftazidime intraperitoneally. ID following, a this time on intraperitoneal Vancomycin, Improving condition, his peritoneal catheter is leaking, general surgery consulted per nephrology to assist with replacement. 2. Ileus Improved. had a large Bowel movement. Diet as tolerated. 3. Hypertension to continue Coreg 25 mg BID, Clonidine 0.2 mg TID, Lisinopril 20 mg PO twice a day, Nifedipine ER 60 mg BID, Hydralazine 50 mg TID Labetalol IV as needed. 4. ESRD on Peritoneal dialysis/Acute Hyperkalemia, He received D50, insulin 5 units, Kayexalate 45 g p.o., sodium bicarb 150 mEq at outside hospital. Nephrology following. He will need dialysis soon. Follow electrolytes closely. 5. HIV/Peritonitis with indwelling peritoneal dialysis catheter undetectable viral load approximately six months ago, follow blood and peritoneal fluid cultures intraperitoneal antibiotics, continue Triumeq tablets 1 tabl by mouth daily. ID following. 6. Anxiety disorder on Xanax 7. 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 Heparin 5000 units subcu every 12 hours for DVT prophylaxis. Famotidine 20 mg p.o. twice daily for stress ulcer prophylaxis Discharge Planning Stable for transfer to floor. Jered Woodruff MD Apr 29, 2017 13:07
--- NOTE | 2017-04-29 14:14 | HHI.NPPN ---
Subjective History of Present Illness Hx of ESRD on PD peritonitis Additional Remarks PD drain leaking - did not do PD last night. Objective Data Data Vital Signs Date Time Temp Pulse Resp B/P (MAP) Pulse Ox O2 Delivery O2 Flow Rate FiO2 04/29/17 08:00 98.0 69 13 102/61 (75) 04/29/17 06:00 69 04/29/17 04:00 97.6 68 50 106/60 (75) 97 04/29/17 04:00 68 04/29/17 02:00 68 04/29/17 00:00 69 04/29/17 00:00 97.6 69 65 110/72 (85) 100 04/28/17 22:00 70 04/28/17 20:00 98.3 73 52 125/80 (95) 100 04/28/17 20:00 73 04/28/17 18:00 74 04/28/17 16:00 74 04/28/17 16:00 98.0 69 12 122/68 (86) -: 04/29/17 0550 04/29/17 0550 Physical Exam General Appearance: Well Developed, Well Nourished Neck Neck Exam: Neck Supple Pulmonary Resp Exam: Clear Bilaterally Cardiology CV Exam: Regular, Normal Sinus Rhythm Gastrointestinal/Abdomen GI Exam: Soft, Non-Tender, Bowel Sounds Present Extremeties Extremities Exam: No Edema Assessment/Plan Problem List: (1) ESRD (end stage renal disease) on dialysis ICD Codes: N18.6 - End stage renal disease; Z99.2 - Dependence on renal dialysis Plan: Peritoneal dialysis ordered with vancomycin 1 g / week (given 04/23) PD fluid with staph epi Apparent leak at PD catheter drain Sat night after 1 cycle. he may need a new transfer set will ask surgery to take a look as IR do not do PD catheter Volume status and electrolytes stable, need to resume PD (2) Hypertensive crisis ICD Codes: I16.9 - Hypertensive crisis, unspecified Plan: BP stable (3) Peritonitis ICD Codes: K65.9 - Peritonitis, unspecified Plan: Staph epi - on vancomycin with PD next dose on 04/30 Passing gas, had bowel movement today. Feeling better today and tolerating PO diet. Mario Cuba MD Apr 29, 2017 14:14
--- NOTE | 2017-04-29 16:47 | HHI.PR ---
cc: Monster Pierre MD Subjective Subjective Notes Resting in bed Was unable to do PD cath due to leaking catheter Objective Vitals/I&O Vital Signs Date Time Temp Pulse Resp B/P (MAP) Pulse Ox O2 Delivery O2 Flow Rate FiO2 04/29/17 12:00 97.8 70 70 108/62 (77) 100 Labs Laboratory Tests Test 04/29/17 05:50 White Blood Count 4.9 Red Blood Count 2.84 Hemoglobin 9.0 Hematocrit 26.7 Mean Corpuscular Volume 94.0 Mean Corpuscular Hemoglobin 31.8 Mean Corpuscular Hemoglobin Concent 33.8 Red Cell Distribution Width 15.6 Platelet Count 208 Mean Platelet Volume 9.8 Neutrophils (%) (Auto) 55.5 Lymphocytes (%) (Auto) 24.2 Monocytes (%) (Auto) 16.6 Eosinophils (%) (Auto) 2.6 Basophils (%) (Auto) 1.1 Neutrophils # (Auto) 2.7 Lymphocytes # (Auto) 1.2 Monocytes # (Auto) 0.8 Eosinophils # (Auto) 0.1 Basophils # (Auto) 0.1 CBC Comment DIFF FINAL Differential Comment Blood Urea Nitrogen 76 Creatinine 23.86 Random Glucose 85 Total Protein 6.0 Calcium Level 6.7 Sodium Level 133 Potassium Level 4.9 Chloride Level 92 Carbon Dioxide Level 23.9 Anion Gap 17 Estimat Glomerular Filtration Rate 2 Protein Corrected Calcium 7.2 Date/Time Source Procedure Growth Status 04/23/17 19:19 Blood Peripheral Aerobic Blood Culture - Final NO GROWTH IN 5 DAYS Complete 04/23/17 19:19 Blood Peripheral Anaerobic Blood Culture - Final NO GROWTH IN 5 DAYS Complete 04/23/17 20:34 Fluid Peritoneal Fluid Acid Fast Stain - Final NO ACID FAST BACILLI SEEN Resulted 04/23/17 20:34 Fluid Peritoneal Fluid Mycobacterial Culture Pending Resulted Radiology Last 48 hours Impressions Abdomen X-Ray 04/23/17 0000 Signed Impressions: Service Date/Time: Sunday, April 23, 2017 20:13 - CONCLUSION: Small bowel obstruction. Anup Mcnamara MD Cardiovascular: Regular Lungs: Clear Abdomen: Other (abdomen minimal tender; PD cath in place with pinpoint hole at distal portion of PD tubing prior to hub that connects to transfer set ) Extremities: No edema A/P Assessment and Plan 36 year old male with ESDR on PD; abdominal pain -Cut off malfunction of tubing sterilely -Renal diet -Dialysis nurse to send new cultures tonight Attending Statement patient seen at bedside ileus resolved pd cath malfxn with leak possible revision Attestation The exam, history, and the medical decision-making described in the above note were completed with the assistance of the mid-level provider. I reviewed and agree with the findings presented. I attest that I had a [id number] encounter with the patient on the same day, and personally performed and documented my assessment and findings in the medical record. Mamta Quintana. PRODUCTION SUPPORT CONSULTANT/Canoe Builder PRODUCTION SUPPORT CONSULTANT Apr 29, 2017 16:47 Monster Pierre MD May 02, 2017 15:58
[2017-04-29 20:01] LABS: TOTAL PROTEIN,PERITONEAL FLUID 1.6 GM/DL
[2017-04-29 21:30] LABS: PERITONEAL LYMPHS 61 %; PERITONEAL MONOS 35 %; PERITONEAL POLYS(SEGS) 4 %
[2017-04-29 21:55] LABS: PERITONEAL RBC 51 /MM3 (0-0)
[2017-04-30] VITALS: BP 119/77; PULSE 80; RESP 18; TEMP 96.4; O2SAT 100
[2017-04-30 04:00] VITALS: BP 110/61; PULSE 56; RESP 16; TEMP 98.6; O2SAT 99
[2017-04-30] MEDS: CHLORHEXIDINE GLUCONATE 2 % 1 PACK (2 CLOTHS) TOP SCH (04:00)
[2017-04-30] MEDS: cloNIDine HCL 0.2 MG TAB PO SCH ×3 (05:51→23:11)
[2017-04-30] MEDS: hydrALAZINE HCL 50 MG TAB PO SCH ×3 (05:51→23:11)
[2017-04-30] MEDS: ALPRAZolam 0.5 MG TAB PO PRN ×3 (05:52→23:11)
[2017-04-30] MEDS: oxyCODONE/ACETAMINOPHEN 5 MG/325 MG TAB PO PRN ×3 (05:52→20:15)
[2017-04-30] MEDS: HEPARIN SODIUM - SQ 10,000 UNITS/ML VIAL SQ SCH ×2 (05:53→19:30)
[2017-04-30 06:13] LABS: HEMOGLOBIN 8.5 GM/DL (13.0-17.0); MEAN CELL VOLUME 94.4 FL (80.0-100.0); MEAN CORPUSCULAR HGB CONC 33.9 % (32.0-36.0); MEAN PLATELET VOLUME 9.9 FL (7.0-11.0); PLATELET COUNT 225 TH/MM3 (150-450); RED BLOOD COUNT 2.65 MIL/MM3 (4.50-5.90); RED CELL DISTRIBUTION WIDTH 15.5 % (11.6-17.2)
[2017-04-30 06:41] LABS: BICARBONATE 23.8 MEQ/L (21.0-32.0); CALCIUM 6.8 MG/DL (8.5-10.1)
[2017-04-30 06:49] LABS: CREATININE 21.01 MG/DL (0.60-1.30)
[2017-04-30 07:08] LABS: TOTAL PROTEIN 5.9 GM/DL (6.4-8.2)
[2017-04-30 07:46] LABS: CALCIUM-PROTEIN CORRECTED 7.4 MG/DL (8.5-10.1)
[2017-04-30 08:00] VITALS: BP 113/66; PULSE 71; RESP 16; TEMP 97.7; O2SAT 100
[2017-04-30] MEDS: DOCUSATE SODIUM 50 MG/SENNA 8.6 MG TAB PO SCH ×2 (08:55→20:13)
[2017-04-30] MEDS: FAMOTIDINE 20 MG TAB PO SCH ×2 (08:55→20:13)
[2017-04-30] MEDS: CINACALCET HYDROCHLORIDE 30 MG TAB PO SCH (08:55)
[2017-04-30] MEDS: CALCITRIOL 0.25 MCG CAP PO SCH ×3 (08:55→16:39)
[2017-04-30] MEDS: CARVEDILOL 12.5 MG TAB PO SCH ×2 (08:56→20:13)
[2017-04-30] MEDS: LISINOPRIL 20 MG TAB PO SCH ×2 (08:56→20:13)
[2017-04-30] MEDS: NIFEdipine 60 MG SUSTAINED RELEASE TAB PO SCH ×2 (08:56→20:13)
[2017-04-30] MEDS: ABACAVIR SULFATE 300 MG TAB PO SCH (08:56)
[2017-04-30] MEDS: DOLUTEGRAVIR SODIUM 50 MG TAB PO SCH (08:57)
[2017-04-30] MEDS: SODIUM CHLORIDE 0.9% FLUSH 10 ML FLUSH IV FLUSH SCH ×2 (08:59→20:13)
--- NOTE | 2017-04-30 11:57 | HHI.PR ---
cc: Monster Pierre MD Subjective Subjective Notes Happy that PD catheter works now without any leaking Objective Vitals/I&O Vital Signs Date Time Temp Pulse Resp B/P (MAP) Pulse Ox O2 Delivery O2 Flow Rate FiO2 04/30/17 04:00 98.6 56 16 110/61 (77) 99 Labs Laboratory Tests Test 04/29/17 19:00 04/30/17 04:50 Peritoneal Fluid WBC 113 Peritoneal Fluid RBC 51 Peritoneal Fluid Neutrophils 4 Peritoneal Fluid Lymphocytes 61 Peritoneal Fluid Monocytes 35 Peritoneal Fluid Comment Peritoneal Fluid Total Protein 1.6 Peritoneal Fluid LDH 159 Peritoneal Fluid Glucose 490 White Blood Count 4.0 Red Blood Count 2.65 Hemoglobin 8.5 Hematocrit 25.0 Mean Corpuscular Volume 94.4 Mean Corpuscular Hemoglobin 32.0 Mean Corpuscular Hemoglobin Concent 33.9 Red Cell Distribution Width 15.5 Platelet Count 225 Mean Platelet Volume 9.9 Blood Urea Nitrogen 69 Creatinine 21.01 Random Glucose 91 Total Protein 5.9 Calcium Level 6.8 Sodium Level 133 Potassium Level 4.2 Chloride Level 93 Carbon Dioxide Level 23.8 Anion Gap 16 Estimat Glomerular Filtration Rate 3 Protein Corrected Calcium 7.4 Date/Time Source Procedure Growth Status 04/23/17 19:19 Blood Peripheral Aerobic Blood Culture - Final NO GROWTH IN 5 DAYS Complete 04/23/17 19:19 Blood Peripheral Anaerobic Blood Culture - Final NO GROWTH IN 5 DAYS Complete 04/29/17 19:00 Fluid Peritoneal Fluid Fungal Smear - Final NO FUNGAL ELEMENTS SEEN. Resulted 04/29/17 19:00 Fluid Peritoneal Fluid Fungal Culture Pending Resulted Radiology Last 48 hours Impressions Abdomen X-Ray 04/23/17 0000 Signed Impressions: Service Date/Time: Sunday, April 23, 2017 20:13 - CONCLUSION: Small bowel obstruction. Anup Mcnamara MD Cardiovascular: Regular Lungs: Clear Abdomen: Non-distended, Non-tender, Other (PD cath in place with no issues ) Extremities: No edema A/P Assessment and Plan 36 year old male with ESDR on PD; abdominal pain -PD completed last night without any leaking -Renal diet -New cultures sent last night from PD cath -GS will sign off -No follow up required in the office Attending Statement patient seen at bedside PD cath functioning well tolerating diet will s/o Attestation The exam, history, and the medical decision-making described in the above note were completed with the assistance of the mid-level provider. I reviewed and agree with the findings presented. I attest that I had a [id number] encounter with the patient on the same day, and personally performed and documented my assessment and findings in the medical record. Mamta Quintana/High School Coach ARNP Apr 30, 2017 11:57 Monster Pierre MD May 05, 2017 06:16
[2017-04-30 12:00] VITALS: BP 126/73; PULSE 77; RESP 16; TEMP 97.8; O2SAT 100
--- NOTE | 2017-04-30 12:32 | HHI.NPPN ---
Subjective History of Present Illness Hx of ESRD on PD peritonitis Additional Remarks PD courtney well after Transfer set change Objective Data Data 04/30/17 05/01/17 19:00 07:00 Output Total 1614 ml Balance -1614 ml Peritoneal Fluid 1614 ml Vital Signs Date Time Temp Pulse Resp B/P (MAP) Pulse Ox O2 Delivery O2 Flow Rate FiO2 04/30/17 04:00 98.6 56 16 110/61 (77) 99 04/30/17 00:00 96.4 80 18 119/77 (91) 100 04/29/17 23:20 70 118/73 (88) 04/29/17 20:00 96.4 58 18 138/81 (100) 100 04/29/17 16:00 68 04/29/17 16:00 97.8 68 13 123/75 (91) 100 04/29/17 14:00 76 -: 04/30/17 0450 04/30/17 0450 Microbiology 04/29/17 Fungal Smear - Final, Resulted NO FUNGAL ELEMENTS SEEN. 04/29/17 Fungal Culture, Resulted Pending 04/29/17 Acid Fast Stain, Received Pending 04/29/17 Mycobacterial Culture, Received Pending 04/29/17 Gram Stain - Final, Resulted 04/29/17 Body Fluid Culture, Resulted Pending Physical Exam General Appearance: Well Developed, Well Nourished Neck Neck Exam: Neck Supple Pulmonary Resp Exam: Clear Bilaterally Cardiology CV Exam: Regular, Normal Sinus Rhythm Gastrointestinal/Abdomen GI Exam: Soft, Non-Tender, Bowel Sounds Present Extremeties Extremities Exam: No Edema Assessment/Plan Problem List: (1) ESRD (end stage renal disease) on dialysis ICD Codes: N18.6 - End stage renal disease; Z99.2 - Dependence on renal dialysis Plan: Peritoneal dialysis ordered with vancomycin 1 g / week (given 04/23) PD fluid with staph epi PD catheter worked good after tubing trimmed and transfer set changed appreciate GS assistance Vanco today and can be dc by am Volume status and electrolytes stable, (2) Hypertensive crisis ICD Codes: I16.9 - Hypertensive crisis, unspecified Plan: BP stable (3) Peritonitis ICD Codes: K65.9 - Peritonitis, unspecified Plan: Staph epi - on vancomycin with PD next dose on 04/30 Passing gas, had bowel movement today. Feeling better today and tolerating PO diet. Mario Cuba MD Apr 30, 2017 12:32
--- NOTE | 2017-04-30 13:42 | HHI.PR ---
Subjective Remarks Follow-up peritonitis. Improving abdominal pain. Discussed with nephrology and infectious disease, may discharge home tomorrow after last dose of IP vancomycin tonight Objective Vitals Vital Signs Date Time Temp Pulse Resp B/P (MAP) Pulse Ox O2 Delivery O2 Flow Rate FiO2 04/30/17 12:00 97.8 77 16 126/73 (90) 100 04/30/17 08:00 97.7 71 16 113/66 (82) 100 04/30/17 04:00 98.6 56 16 110/61 (77) 99 04/30/17 00:00 96.4 80 18 119/77 (91) 100 04/29/17 23:20 70 118/73 (88) 04/29/17 20:00 96.4 58 18 138/81 (100) 100 04/29/17 16:00 68 04/29/17 16:00 97.8 68 13 123/75 (91) 100 04/29/17 14:00 76 I/O 04/29/17 04/29/17 04/29/17 04/30/17 04/30/17 04/30/17 07:00 15:00 23:00 07:00 15:00 23:00 Intake Total 300 ml Output Total 1 ml 1614 ml Balance 299 ml -1614 ml Intake Oral 300 ml Output Urine Total 0 ml Stool Total 1 ml Peritoneal Fluid 1614 ml # Voids 2 # Bowel Movements 1 1 Result Diagram: 04/30/17 0450 04/30/17 0450 Imaging Last Impressions Abdomen/Pelvis CT 04/24/17 0000 Signed Impressions: Service Date/Time: April 12:22 - CONCLUSION: 1. Large volume ascites. 2. Polycystic kidney disease. 3. Multiple dilated proximal small bowel loops, likely ileus. Dayton Johnson MD Abdomen X-Ray 04/23/17 0000 Signed Impressions: Service Date/Time: Sunday, April 23, 2017 20:13 - CONCLUSION: Small bowel obstruction. Anup Mcnamara MD Objective Remarks GENERAL: This is a well-nourished, well-developed patient, in no apparent distress. CARDIOVASCULAR: Normal rate and regular rhythm without murmurs, gallops, or rubs. RESPIRATORY: Good respiratory efforts. Breath sounds equal and clear to auscultation bilaterally. GASTROINTESTINAL: Abdomen is distended, mild RLQ tenderness to palpation. Normal active bowel sounds. PD catheter in place. MUSCULOSKELETAL: Extremities without cyanosis, or edema. NEURO: Alert & Oriented x4 to person, place, time, situation. Moves all ext x4 PSYCH: Appropriate mood and affect. Procedures None A/P Problem List: (1) Peritonitis ICD Code: K65.9 - Peritonitis, unspecified Assessment and Plan 1. Staph epi Peritonitis: patient started on Intraperitoneal antibiotics, Nephrology specialist following Doctor Rosa Elena has thickening of the [place] wall through the majority of its course which may be reactive versus infectious/inflammatory Was on Vancomycin and Ceftazidime intraperitoneally. ID following, continue on intraperitoneal Vancomycin second and possibly last dose to be given today, Improving condition, his peritoneal catheter was leaking, general surgery cut the portion with leak and reattached tube 2. Ileus Improved. Had a large Bowel movement. Diet as tolerated. 3. Hypertension to continue Coreg 25 mg BID, Clonidine 0.2 mg TID, Lisinopril 20 mg PO twice a day, Nifedipine ER 60 mg BID, Hydralazine 50 mg TID Labetalol IV as needed. Improved 4. ESRD on Peritoneal dialysis/Acute Hyperkalemia, He received D50, insulin 5 units, Kayexalate 45 g p.o., sodium bicarb 150 mEq at outside hospital. Nephrology following. Ct PD Follow electrolytes closely. 5. HIV/Peritonitis with indwelling peritoneal dialysis catheter undetectable viral load approximately six months ago, follow blood and peritoneal fluid cultures(repeat NGTD) intraperitoneal antibiotics, continue Triumeq tablets 1 tabl by mouth daily. ID following. 6. Anxiety disorder on Xanax 7. 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 Heparin 5000 units subcu every 12 hours for DVT prophylaxis. Famotidine 20 mg p.o. twice daily for stress ulcer prophylaxis Discharge Planning Dc in am Jordan Bishop MD Apr 30, 2017 13:42
--- NOTE | 2017-04-30 14:37 | HHI.DCPOC ---
Discharge Care Plan Diagnosis: (1) Peritonitis (2) ESRD (end stage renal disease) on dialysis Your Health Problems Are: Difficulty with ADL Exercise Tolerance Goals to Promote Your Health * To prevent worsening of your condition and complications * To maintain your health at the optimal level Directions to Meet Your Goals Take your medications as prescribed Follow your dietary instruction Follow activity as directed Keep your appointments as scheduled Take your immunizations and boosters as scheduled If your symptoms worsen call your PCP, if no PCP go to Urgent Care Center or Emergency Room Smoking is Dangerous to Your Health. Avoid second hand smoke Call the 24-hour hour crisis hotline for domestic abuse at Jordan Bishop MD Apr 30, 2017 14:37
[2017-04-30] MEDS ORDERED: CALC0.25 PO (15:40)
[2017-04-30] MEDS ORDERED: CLON0.2T PO (15:40)
[2017-04-30] MEDS ORDERED: SUMA1TAB12 PO (15:40)
[2017-04-30] MEDS ORDERED: SENS60TA PO (15:40)
[2017-04-30] MEDS ORDERED: LISI-515 PO ×2 (15:40→16:13)
[2017-04-30] MEDS ORDERED: HYDR-3801 PO (15:40)
[2017-04-30] MEDS ORDERED: CARV25TA (15:40)
[2017-04-30] MEDS ORDERED: ALPR0.5T3 PO (15:40)
[2017-04-30] MEDS ORDERED: FLEE5TAB PO (15:40)
[2017-04-30 16:00] VITALS: BP 107/63; PULSE 76; RESP 16; TEMP 98.8; O2SAT 100
[2017-04-30] MEDS ORDERED: BACTOIN EACH NARE (16:13)
[2017-04-30] MEDS ORDERED: NIFE60TA8 PO (16:13)
[2017-04-30] MEDS ORDERED: CARV25TA PO (16:13)
[2017-04-30] MEDS ORDERED: HYDR-3800 PO (16:13)
[2017-04-30] MEDS ORDERED: OXYC1TAB63 PO (16:13)
[2017-04-30] MEDS ORDERED: CLON.2 PO (16:13)
[2017-04-30] MEDS ORDERED: ABAC1TAB3 PO (16:38)
[2017-04-30] MEDS: MUPIROCIN 2% OINT 1 APPLIC/GM SYR EACH NARE SCH ×2 (16:39→20:14)
[2017-04-30 20:00] VITALS: BP 139/89; PULSE 72; RESP 18; TEMP 96.3; O2SAT 100
[2017-04-30] MEDS: VANCOMYCIN HCL 1000 MG VIAL IP SCH (20:15)
[2017-05-01] VITALS: BP 129/75; PULSE 78; RESP 18; TEMP 97.5; O2SAT 98
[2017-05-01] MEDS: CHLORHEXIDINE GLUCONATE 2 % 1 PACK (2 CLOTHS) TOP SCH (04:00)
[2017-05-01 06:30] VITALS: BP 114/75; PULSE 77
[2017-05-01] MEDS: HEPARIN SODIUM - SQ 10,000 UNITS/ML VIAL SQ SCH (06:32)
[2017-05-01] MEDS: hydrALAZINE HCL 50 MG TAB PO SCH (06:35)
[2017-05-01] MEDS: cloNIDine HCL 0.2 MG TAB PO SCH (06:36)
[2017-05-01 08:00] VITALS: BP 119/75; PULSE 82; RESP 16; TEMP 97.4; O2SAT 100
[2017-05-01] MEDS: CINACALCET HYDROCHLORIDE 30 MG TAB PO SCH (08:21)
[2017-05-01] MEDS: CARVEDILOL 12.5 MG TAB PO SCH (08:21)
[2017-05-01] MEDS: FAMOTIDINE 20 MG TAB PO SCH (08:22)
[2017-05-01] MEDS: NIFEdipine 60 MG SUSTAINED RELEASE TAB PO SCH (08:22)
[2017-05-01] MEDS: CALCITRIOL 0.25 MCG CAP PO SCH (08:22)
[2017-05-01] MEDS: DOCUSATE SODIUM 50 MG/SENNA 8.6 MG TAB PO SCH (08:22)
[2017-05-01] MEDS: ALPRAZolam 0.5 MG TAB PO PRN (08:22)
[2017-05-01] MEDS: LISINOPRIL 20 MG TAB PO SCH (08:22)
[2017-05-01] MEDS: MUPIROCIN 2% OINT 1 APPLIC/GM SYR EACH NARE SCH (08:23)
[2017-05-01] MEDS: oxyCODONE/ACETAMINOPHEN 5 MG/325 MG TAB PO PRN (08:23)
[2017-05-01] MEDS: DOLUTEGRAVIR SODIUM 50 MG TAB PO SCH (08:24)
[2017-05-01] MEDS: ABACAVIR SULFATE 300 MG TAB PO SCH (08:24)
[2017-05-01] MEDS: SODIUM CHLORIDE 0.9% FLUSH 10 ML FLUSH IV FLUSH SCH (08:28)
--- NOTE | 2017-05-01 11:19 | HHI.PR ---
Objective Vitals Vital Signs Date Time Temp Pulse Resp B/P (MAP) Pulse Ox O2 Delivery O2 Flow Rate FiO2 05/01/17 08:00 97.4 82 16 119/75 (90) 100 05/01/17 06:30 77 114/75 (88) 05/01/17 00:00 97.5 78 18 129/75 (93) 98 04/30/17 20:00 96.3 72 18 139/89 (106) 100 04/30/17 16:00 98.8 76 16 107/63 (78) 100 04/30/17 12:00 97.8 77 16 126/73 (90) 100 I/O 04/30/17 04/30/17 04/30/17 05/01/17 05/01/17 05/01/17 07:00 15:00 23:00 07:00 15:00 23:00 Intake Total 720 ml Output Total 1614 ml 1058 ml Balance -1614 ml 720 ml -1058 ml Intake Oral 720 ml Peritoneal Fluid 1614 ml 1058 ml # Voids 2 3 2 # Bowel Movements 1 1 2 Result Diagram: 04/30/17 0450 04/30/17 0450 Objective Remarks GENERAL: This is a well-nourished, well-developed patient, in no apparent distress. CARDIOVASCULAR: Normal rate and regular rhythm without murmurs, gallops, or rubs. RESPIRATORY: Good respiratory efforts. Breath sounds equal and clear to auscultation bilaterally. GASTROINTESTINAL: Abdomen is distended, mild RLQ tenderness to palpation. Normal active bowel sounds. PD catheter in place. MUSCULOSKELETAL: Extremities without cyanosis, or edema. NEURO: Alert & Oriented x4 to person, place, time, situation. Moves all ext x4 PSYCH: Appropriate mood and affect. Procedures None A/P Problem List: (1) Peritonitis ICD Code: K65.9 - Peritonitis, unspecified Status: Acute Assessment and Plan 1. Staph epi Peritonitis: patient started on Intraperitoneal antibiotics, Nephrology specialist following Doctor Rosa Elena has thickening of the Col[place] wall through the majority of its course which may be reactive versus infectious/inflammatory Was on Vancomycin and Ceftazidime intraperitoneally. ID following, continue on intraperitoneal Vancomycin second and possibly last dose to be given today, Improving condition, his peritoneal catheter was leaking, general surgery cut the portion with leak and reattached tube 2. Ileus Improved. Had a large Bowel movement. Diet as tolerated. 3. Hypertension to continue Coreg 25 mg BID, Clonidine 0.2 mg TID, Lisinopril 20 mg PO twice a day, Nifedipine ER 60 mg BID, Hydralazine 50 mg TID Labetalol IV as needed. Improved 4. ESRD on Peritoneal dialysis/Acute Hyperkalemia, He received D50, insulin 5 units, Kayexalate 45 g p.o., sodium bicarb 150 mEq at outside hospital. Nephrology following. Ct PD Follow electrolytes closely. 5. HIV/Peritonitis with indwelling peritoneal dialysis catheter undetectable viral load approximately six months ago, follow blood and peritoneal fluid cultures(repeat NGTD) intraperitoneal antibiotics, continue Triumeq tablets 1 tabl by mouth daily. ID following. 6. Anxiety disorder on Xanax 7. 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 Heparin 5000 units subcu every 12 hours for DVT prophylaxis. Famotidine 20 mg p.o. twice daily for stress ulcer prophylaxis Discharge Planning Dc in am Jordan Bishop MD May 01, 2017 11:19
--- NOTE | 2017-05-01 15:49 | HHI.DS ---
Discharge Summary Admission Date Apr 23, 2017 at 17:56 Discharge Date: May 01, 2017 Admitting Diagnosis (1) Peritonitis ICD Code: K65.9 - Peritonitis, unspecified Diagnosis: Principal Status: Acute (2) HTN (hypertension) ICD Code: I10 - Essential (primary) hypertension Diagnosis: Principal Status: Chronic (3) HIV (human immunodeficiency virus infection) ICD Code: B20 - Human immunodeficiency virus [HIV] disease Diagnosis: Principal Status: Chronic (4) ESRD (end stage renal disease) on dialysis ICD Code: N18.6 - End stage renal disease; Z99.2 - Dependence on renal dialysis Diagnosis: Principal Status: Chronic (5) Peritonitis associated with peritoneal dialysis ICD Code: T85.71XA - Infection and inflammatory reaction due to peritoneal dialysis catheter, initial encounter Diagnosis: Principal Status: Acute Procedures None Brief History - From Admission 36 yo -[place] male with past medical history of ESRD on PD since 2009 ( under the care of Ajay Mckenzie in [place]), HIV diagnosed in 2009 on HAART with reportedly undetectable viral load 6 months ago, HTN, chronic constipation who presented to [facility] this morning with concerns for peritonitis. He states that on 04/21/17 he developed abdominal discomfort which he recognized as being similar to prior episodes of peritonitis. He had chills. He did not check his temperature. On 04/21 he noted that his peritoneal fluid appeared cloudy. He has had very little appetite and very little to eat since 04/20. He was nauseous and vomited once today, nonbloody nonbilious. Last bowel movement was 04/20. He has had 4 prior episodes of peritonitis, the most recent was 4 years ago. Catheter has been removed and replaced on one occasion in 2013. At the outside hospital he was afebrile with heart rate in the 80s and hypertensive with systolic in the 180s. Labs were drawn at 9:30 AM on 04/23 white blood cell count was 6.5, hemoglobin 11, platelets 209. Sodium was 138, potassium 6, chloride 94, bicarb 23, BUN 84 , creatinine 21, glucose 105, calcium 8.7, LFTs normal, albumin 3.9. Coags were all within normal limits. He received D50, insulin 5 units, Kayexalate 45 g p.o., sodium bicarb 150 mEq at outside hospital. Blood cultures and peritoneal cultures were sent. He received Zosyn 3.375 g IV and vancomycin 500 mg IV. He also received Zofran and a total of 2.5 mg of Dilaudid and 4 mg of morphine. Reportedly he had a repeat potassium that was 5.0. CT abdomen and pelvis at outside hospital with ports focally dilated air loops of small bowel which may represent ileus. SBO cannot be excluded. Thickening of the colonic wall through the majority of its course which may be reactive versus infectious/ inflammatory. Bilateral pleural effusions. [facility] discussed with patient's incoming inspector but there was there are no beds in the hospital so he has been transferred to [facility]. CBC/BMP: 04/30/17 0450 04/30/17 0450 Significant Findings Laboratory Tests Test 04/29/17 05:50 04/29/17 19:00 04/30/17 04:50 Red Blood Count 2.84 MIL/MM3 (4.50-5.90) 2.65 MIL/MM3 (4.50-5.90) Hemoglobin 9.0 GM/DL (13.0-17.0) 8.5 GM/DL (13.0-17.0) Hematocrit 26.7 % (39.0-51.0) 25.0 % (39.0-51.0) Monocytes (%) (Auto) 16.6 % (0.0-8.0) Blood Urea Nitrogen 76 MG/DL (7-18) 69 MG/DL (7-18) Creatinine 23.86 MG/DL (0.60-1.30) 21.01 MG/DL (0.60-1.30) Total Protein 6.0 GM/DL (6.4-8.2) 5.9 GM/DL (6.4-8.2) Calcium Level 6.7 MG/DL (8.5-10.1) 6.8 MG/DL (8.5-10.1) Sodium Level 133 MEQ/L (136-145) 133 MEQ/L (136-145) Chloride Level 92 MEQ/L (98-107) 93 MEQ/L (98-107) Anion Gap 17 MEQ/L (5-15) 16 MEQ/L (5-15) Estimat Glomerular Filtration Rate 2 ML/MIN (>89) 3 ML/MIN (>89) Protein Corrected Calcium 7.2 MG/DL (8.5-10.1) 7.4 MG/DL (8.5-10.1) Peritoneal Fluid WBC 113 /MM3 (0-10) Peritoneal Fluid RBC 51 /MM3 (0-0) Imaging Last Impressions Abdomen/Pelvis CT 04/24/17 0000 Signed Impressions: Service Date/Time: April 12:22 - CONCLUSION: 1. Large volume ascites. 2. Polycystic kidney disease. 3. Multiple dilated proximal small bowel loops, likely ileus. Dayton Johnson MD Abdomen X-Ray 04/23/17 0000 Signed Impressions: Service Date/Time: Sunday, April 23, 2017 20:13 - CONCLUSION: Small bowel obstruction. Anup Mcnamara MD PE at Discharge GENERAL: This is a well-nourished, well-developed patient, in no apparent distress. CARDIOVASCULAR: Normal rate and regular rhythm without murmurs, gallops, or rubs. RESPIRATORY: Good respiratory efforts. Breath sounds equal and clear to auscultation bilaterally. GASTROINTESTINAL: Abdomen is distended, mild RLQ tenderness to palpation. Normal active bowel sounds. PD catheter in place. MUSCULOSKELETAL: Extremities without cyanosis, or edema. NEURO: Alert & Oriented x4 to person, place, time, situation. Moves all ext x4 PSYCH: Appropriate mood and affect. Hospital Course 1. Staph epi Peritonitis: patient started on Intraperitoneal antibiotics, Nephrology specialist following Doctor Rosa Elena Has thickening of the Colonic wall through the majority of its course which may be reactive versus infectious/inflammatory. Denies abdominal complaints Was on Vancomycin and Ceftazidime intraperitoneally. ID following, continue on intraperitoneal Vancomycin second dose given overnight. Improving condition, Leaking PD catheter worked good after tubing trimmed and transfer set changed by general surgery 2. Ileus Improved. Had a large Bowel movement. Diet as tolerated. 3. Hypertension to continue Coreg 25 mg BID, Clonidine 0.2 mg TID, Lisinopril 20 mg PO twice a day, Nifedipine ER 60 mg BID, Hydralazine 50 mg TID Labetalol IV as needed. Improved 4. ESRD on Peritoneal dialysis/Acute Hyperkalemia, He received D50, insulin 5 units, Kayexalate 45 g p.o., sodium bicarb 150 mEq at outside hospital. Nephrology following. Ct PD Follow electrolytes closely. 5. HIV/Peritonitis with indwelling peritoneal dialysis catheter undetectable viral load approximately six months ago, follow blood and peritoneal fluid cultures(repeat NGTD) intraperitoneal antibiotics, continue Triumeq tablets 1 tabl by mouth daily. ID following. 6. Anxiety disorder on Xanax 7. 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 Heparin 5000 units subcu every 12 hours for DVT prophylaxis. Famotidine 20 mg p.o. twice daily for stress ulcer prophylaxis Pt Condition on Discharge: Stable Discharge Disposition: Discharge Home Discharge Time: > 30 minutes Discharge Instructions DIET: Follow Instructions for: Renal Failure Diet Activities you can perform: Regular-No Restrictions Activities to Avoid: Driving Follow up Referrals: Nephrology - 1 Week PCP Follow-up - 1 Week with New Medications: Clonidine (Catapres) 0.2 Mg Tab 0.2 MG PO Q8HR for Blood Pressure Management, #90 TAB Hydralazine HCl (Hydralazine HCl) 50 Mg Tablet 50 MG PO Q8HR for Blood Pressure Management, #90 TAB Mupirocin Nasal Oint (Bactroban Nasal Oint) 2% Oint 1 APPLIC EACH NARE BID for Infection, #1 TUBE Single-use tubes. stop 05/07/17 Nifedipine ER 24 HR (Nifedipine ER 24 HR) 60 Mg Tab 60 MG PO Q12HR for Blood Pressure Management, #60 TAB Oxycodone HCl/Acetaminophen (Oxycodone-Acetaminophen 5-325) 5 Mg-325 Mg Tablet 1 TAB PO Q6HR PRN for PAIN 4-7, #28 TAB Changed Medications: Carvedilol (Carvedilol) 25 Mg Tab 25 MG PO Q12HR for Blood Pressure Management, #60 TAB 0 Refills (Changed from: BID) Lisinopril (Lisinopril) 20 Mg Tab 20 MG PO Q12HR for Blood Pressure Management, #30 TAB 0 Refills (Changed from: BID) Continued Medications: Alprazolam (Alprazolam) 0.5 Mg Tab 0.5 MG PO Q8H PRN for ANXIETY, TAB [address] (Bisacodyl EC) 5 Mg Tabec 10 MG PO DAILY PRN for CONSTIPATION, TAB 0 Refills Calcitriol (Calcitriol) 0.25 Mcg Cap 0.5 MCG PO TID for Calcium Supplement, #30 CAP 0 Refills Cinacalcet (Sensipar) 60 Mg Tab 60 MG PO BID, #60 TAB 0 Refills Sumatriptan-Naproxen (Treximet) 10-60 mg Tab 1 TAB PO ONCE PRN for MIGRAINE HEADACHE, TAB 0 Refills May take a second dose after 2 hours if needed. Maximum 2 tabs in 24 hour period. Jordan Bishop MD May 01, 2017 15:49
[2017-05-01] MEDS ORDERED: REMOVE OLD CATAPRES (CLONIDINE) PATCH T-DERMAL SCH (16:00)
== END 2017-05-01 11:17 | disposition home or self-care (01) | DRG 919 ==
LOC: HIMW 17:56 → N07A 04-29 18:14
PROVIDERS: ADMIT Internal Medicine; ATTEND Internal Medicine
PROC: 0JWT33Z Revision of Infusion Device in Trunk Subcutaneous Tissue and Fascia, Percutaneous Approach (ICD-10-PCS; principal; 2017-04-29)
DX: T85.71XA Infection and inflammatory reaction due to peritoneal dialysis catheter, initial encounter (principal); B20 Human immunodeficiency virus [HIV] disease; K65.9 Peritonitis, unspecified; J90 Pleural effusion, not elsewhere classified; N18.6 End stage renal disease; I12.0 Hypertensive chronic kidney disease with stage 5 chronic kidney disease or end stage renal disease; N25.81 Secondary hyperparathyroidism of renal origin; K56.7 Ileus, unspecified; I16.1 Hypertensive emergency; T85.631A Leakage of intraperitoneal dialysis catheter, initial encounter; E87.5 Hyperkalemia; D63.1 Anemia in chronic kidney disease; E78.5 Hyperlipidemia, unspecified; F41.9 Anxiety disorder, unspecified; Y83.8 Other surgical procedures as the cause of abnormal reaction of the patient, or of later complication, without mention of misadventure at the time of the procedure; Z22.322 Carrier or suspected carrier of Methicillin resistant Staphylococcus aureus; Z91.15 Patient's noncompliance with renal dialysis; Z99.2 Dependence on renal dialysis
CPT/HCPCS: 74018; 74176; 80048; 82945; 83615; 83735; 84100; 84155; 84157; 85025; 85027; 86403; 87015; 87040; 87070; 87077; 87102; 87116; 87186; 87205; 87206; 87641; 89051; 90935; 93005; J0360; J0713; J1644; J2405; J3370; Q9963